=== PATIENT | male | born 1985 | race Caucasian/White ===

== ENCOUNTER 2017-07-11 15:22 | Emergency (ER) | payer MEDICAID, SELFPAY ==
[2017-07-11 15:23] VITALS: BP 144/82; PULSE 101; RESP 18; TEMP 37.3; O2SAT 97; BMI 27.6
[2017-07-11] MEDS: Ketorolac 60 MG/2 ML Vial IM (15:44)
--- NOTE | 2017-07-11 15:47 | RAD_ITS ---
STUDY: X-RAY - UNILATERAL RIBS ( LEFT ) WITH CHEST REASON FOR EXAM: Male, 32 years old. Pain following lifting one day ago TECHNIQUE - RIBS: 4 view(s) of the ribs. TECHNIQUE - CHEST: Single PA view of the chest. COMPARISON: Previous rib study of 02/07/2013. Previous chest study of 04/22/2017. FINDINGS - RIBS: Normal visualized ribs without a demonstrated fracture. FINDINGS - CHEST: There is a nipple shadow of the left lung base. There is a small calcified granuloma also of the left lung base. There is no demonstrated pleural abnormality. Normal size heart. Normal mediastinum and dana. Normal visualized pulmonary arteries. Normal visualized aortic arch and descending thoracic aorta. Normal visualized thoracic spine. Normal visualized ribs, clavicles, and shoulders. There is no demonstrated abnormality of the visualized soft tissue structures of the upper abdomen. RAD/Ribs Uni Min 3V w/PA Chest IMPRESSION: RIBS: Normal x-ray examination of the ribs. CHEST: Nipple shadow overlying the left lung base. Small calcified granuloma of the left lower lobe. No acute cardiopulmonary disease process is seen. Electronically Signed: Tom Causey MD at 16:22 EDT , Service support ,
--- NOTE | 2017-07-11 15:58 | ED.DCSUM_ITS ---
- ER Visit Summary Date of Service: 07/11/17 Chief Complaint: Left chest wall pain History of Present Illness: The patient is a 32 M presenting with left chest wall pain. Patient states that he was helping his sister move a freezer last night. After lifting, he felt a pain in his left lower chest wall. He tried ibuprofen at home. He denies shortness of breath. Pain is worse with movement. Denies other complaints. Physical Examination: Vitals are stable. Patient is afebrile. Alert no acute distress. HEENT exam is unremarkable. Neck is supple. Lungs are clear and equal bilaterally. Left lateral chest wall tenderness with no crepitus Heart is regular rate and rhythm. Abdomen is soft nontender nondistended. No rebound or guarding Extremities are unremarkable. Skin is warm and dry. Remainder of exam is unremarkable. Emergency Department Course and Treatment: Patient is given Toradol IM. Left rib series shows no acute process. Patient is advised to continue ibuprofen at home. Advised to follow-up with Dr. Bruce vice president for instruction for no doc. Advised to return to ED for worsening complaints. Disposition: Discharge home Impression: Left chest wall strain This note was generated with [employer] dictation software. It may contain incorrect words, spelling, and punctuation that were not noted in review of the chart prior to signing ED Disposition - Plan for ED Patient: Chief Complaint: Chest Other Referrals: Care Physician,No Primary [Primary Care Provider] -
--- NOTE | 2017-07-11 16:30 | ED.DEP ---
ED Disposition - Plan for ED Patient: Chief Complaint: Chest Other Instructions: ED Strain Chest Wall Referrals: Care Physician,No Primary [Primary Care Provider] - Sulma Bruce MD [STAFF PHYSICIAN] -
== END 2017-07-11 16:41 | disposition home or self-care (01) ==
LOC: ED 16:27
PROVIDERS: Emergency Provider Emergency Medicine
DX: S29.011A Strain of muscle and tendon of front wall of thorax, initial encounter (principal); X50.0XXA Overexertion from strenuous movement or load, initial encounter; Y93.E6 Activity, residential relocation; Y92.9 Unspecified place or not applicable; Y99.9 Unspecified external cause status; Z72.0 Tobacco use
CPT/HCPCS: 71101; 99282

== ENCOUNTER 2017-07-25 14:43 | Inpatient (IN) | payer MEDICAID, SELFPAY ==
[2017-07-25] VITALS (10 sets, daily range): BP systolic 105–126; BP diastolic 59–73; PULSE 87–103; RESP 18–24; TEMP 36.6–39.4; O2SAT 96–100; BMI 25.0; BMI 27.3
--- NOTE | 2017-07-25 14:48 | EKG12_ITS ---
Test Reason : CP Blood Pressure : / mmHG Vent. Rate : 092 BPM Atrial Rate : 092 BPM P-R Int : 156 ms QRS Dur : 084 ms QT Int : 362 ms P-R-T Axes : 047 030 026 degrees QTc Int : 447 ms Normal sinus rhythm Normal ECG Confirmed by LUCRECIA JJ MD ([id number]), design editor CABRERA CRAVEN ([id number] on 07/27/2017 1:28:40 PM Referred By: CARIDAD Confirmed By:LUCRECIA JJ MD
--- NOTE | 2017-07-25 14:48 | RAD_ITS ---
STUDY: X-RAY CHEST REASON FOR EXAM: Male, 32 years old. Sudden onset of acute pain today. TECHNIQUE: AP upright portable view. COMPARISON: 07/11/2017. FINDINGS: Mild pulmonary hypoinflation. The lungs are clear. There is no demonstrated pleural abnormality. Normal size heart. Normal mediastinum and dana. Normal visualized pulmonary arteries. Normal visualized aortic arch and descending thoracic aorta. Normal visualized thoracic spine. Normal visualized ribs, clavicles, and shoulders. Increased gastric gaseous dilatation. RAD/Chest 1 View (Portable) IMPRESSION: 1. Normal x-ray examination of the chest. 2. Limited inspiratory effort and increased gastric gaseous dilatation are the changes when compared to 07/11/2017. Electronically Signed: Dixon Abdalla MD at 15:23 EDT , Service support ,
--- NOTE | 2017-07-25 14:49 | CT_ITS ---
STUDY: CT ABDOMEN AND PELVIS WITH CONTRAST REASON FOR EXAM: Male, 32 years old. Chest pain. Abdominal pain and shortness of breath RADIATION DOSAGE (If Supplied By Facility): CTDIvol = ( ) mGy, DLP = ( ) mGycm TECHNIQUE: Transaxial images were obtained from the dome of the diaphragm to the symphysis pubis without oral contrast. 100ML ml of Isovue 300 contrast was administered. Sagittal and coronal images were reconstructed. Individualized dose optimization techniques were used for this CT. COMPARISON: None. FINDINGS: Unremarkable liver, spleen, pancreas, gallbladder and adrenal glands. Normal left kidney. Right kidney demonstrates a simple-appearing nonenhancing cyst however, with a thin peripheral calcification. This cyst measures 6.6 x 4.8 cm. Otherwise, normal right kidney. Normal visualized stomach. Normal small intestine. Moderate fecal retention throughout the colon. The appendix is visualized and appears normal. Normal abdominal aorta. Normal inferior vena cava. Normal retroperitoneum. Normal urinary bladder. Normal visualized prostate gland. Normal abdominal wall. Normal osseous structures. CT/Abdomen/Pelvis W IV Cont ONLY IMPRESSION: No acute findings. Predominantly simple-appearing right renal cyst with a thin peripheral calcification. Nonemergent renal ultrasound is recommended to further evaluate. Electronically Signed: Caleb Orta DO at 16:11 EDT Tel , Service support ,
--- NOTE | 2017-07-25 14:49 | CT_ITS ---
STUDY: CTA CHEST REASON FOR EXAM: Male, 32 years old. Shortness of breath and chest pain RADIATION DOSAGE (If Supplied By Facility): CTDIvol = ( 17.80 ) mGy, DLP = ( 1387.07 ) mGycm TECHNIQUE: The examination was performed with the intravenous administration of 100ML ml of Isovue 370 contrast material. Post-processing of the angiographic images was performed, with multiplanar reformation and 3D reconstruction. Individualized dose optimization techniques were used for this CT. COMPARISON: None. FINDINGS: Normal enhancement of the main pulmonary artery and right and left pulmonary arteries. Normal enhancement of the bilateral peripheral pulmonary arteries. There is no demonstrated pulmonary embolism. Normal thoracic aorta and visualized great vessels. There is no demonstrated aortic dissection. Normal heart and pericardium. Multiple small mediastinal and subcarinal lymph nodes. Possibly reactive in nature. Normal hilar regions. Normal visualized trachea and bronchi. Lungs are adequately inflated however, there is left lower lobe airspace disease and effusion. Masslike consolidation as well. Small area of airspace disease in the anterior right middle lobe. Remainder of the lungs are clear. Normal chest wall structures. Normal osseous structures. Normal visualized upper abdomen. CT/CTA Chest W/WO Contrast IMPRESSION: 1. Negative for pulmonary embolism or thoracic aortic dissection 2. Left lower lobe consolidation, infiltrate and effusion with masslike appearance. There is also a small area of airspace disease in the anterior right middle lobe. Findings are concerning for multifocal pneumonia. Recommend repeat chest CT in 3-6 months following treatment to evaluate for resolution of left lower lobe symptoms 3. Mild mediastinal and subcarinal lymph nodes. Likely reactive in nature. Again, follow-up can be performed in 3-6 months Electronically Signed: Caleb Orta DO at 16:15 EDT Tel , Service support ,
[2017-07-25] MEDS: Ondansetron 4 MG/2 ML Vial IV (14:59)
[2017-07-25] MEDS: Aspirin 81 MG TAB.CHEW 324 MG PO (14:59)
[2017-07-25] MEDS: Morphine 4 MG/ML Syringe IV (14:59)
[2017-07-25 15:12] LABS: Absolute Lymphocyte Count 1.19 X10^3/ul (0.83-4.51); Absolute Neutrophil Count 7.8 X10^3/uL (2.0-7.7); Basophil# 0.02 X10^3/uL; Basophil% 0.2 % (0-1); Eosinophil# 0.26 X10^3/uL; Eosinophils% 2.6 % (0-5); Hematocrit 44.6 % (40-54); Hemoglobin 14.5 g/dl (13.0-16.5); Lymphocyte # 1.19 X10^3/ul (4.0); Lymphocyte % 12.1 % (19-41); Mean Corp Hgb Conc 32.5 g/gl (32-36); Mean Corpuscular Hgb 29.4 pg (27.0-32.0); Mean Corpuscular Volume 90.3 fL (80-94); Mean Platelet Vol. 10.3 fl (6.2-12.0); Monocyte# 0.53 X10^3/uL; Monocyte% 5.4 % (0-10); Neutrophil % 79.5 % (47-70); POSITIVE COUNT NO; POSITIVE DIFFERENTIAL NO; POSITIVE MORPHOLOGY NO; Platelet Count 444 K/mm3 (150-450); RBC Distribution Width CV 14.5 % (11.6-14.6); RBC Distribution Width SD 47.8 fl (35.1-43.9); Red Blood Count 4.94 M/mm3 (4.6-6.2); White Blood Count 9.8 K/mm3 (4.4-11.0)
[2017-07-25 15:20] LABS: Anion Gap 6 (5-15); BUN 13 mg/dL (7-18); BUN/Creat Ratio 14.2 RATIO (10-20); Calcium,Total 8.6 mg/dL (8.5-10.1); Chloride 105 mmol/L (98-107); Creatinine, Serum 0.92 mg/dL (0.70-1.30); EST Glomerular Filtration Rate 101 mL/min (>60); Est Glom Filt Rate - Afr Amer 122 mL/min (>60); Estimated Creatinine Clearance 125.35 ml/min; Glucose 175 mg/dL (74-106); Potassium 4.5 mmol/L (3.5-5.1); Sodium Level 140 mmol/L (136-145)
--- NOTE | 2017-07-25 15:48 | ED.VISSUMM ---
- ER Visit Summary Date of Service: 07/25/17 Chief Complaint: Chest wall pain History of Present Illness: The patient is a 32 M presenting with chest wall pain. Patient states he was seen in the ED 1.5 weeks ago for similar complaints. He had been moving a freezer and had pain in his left side of his chest. He had rib x-rays which were unremarkable. He was advised to take ibuprofen. He states the pain has been persistent. He states today he developed severe pain in the same area. No new injury. Complains of shortness of breath. No other complaints. Physical Examination: Vitals are stable. Patient is afebrile. Alert no acute distress. HEENT exam is unremarkable. Neck is supple. Lungs are diminished bilaterally. Heart is regular rate and rhythm. Left chest wall tenderness with no crepitus Abdomen is soft mild left upper quadrant tenderness with no rebound or guarding Extremities are unremarkable. Skin is warm and dry. No focal neurologic deficit. Remainder of exam is unremarkable. Emergency Department Course and Treatment: Patient given morphine, Zofran. EKG is sinus rate of 92. Chest xray shows poor inspiration. CBC normal. Chemistries normal except for glucose 175. Troponin is negative. CTA chest negative for pulmonary embolism or thoracic aortic dissection Left lower lobe consolidation, infiltrate and effusion with masslike appearance. There is also a small area of airspace disease in the anterior right middle lobe. Findings are concerning for multifocal pneumonia. Recommend repeat chest CT in 3-6 months following treatment to evaluate for resolution of left lower lobe symptoms. Mild mediastinal and subcarinal lymph nodes. Likely reactive in nature. CT abdomen/pelvis shows no acute findings. Predominantly simple-appearing right renal cyst with a thin peripheral calcification. Nonemergent renal ultrasound is recommended. Blood cultures were sent. He was given Rocephin and Zithromax IV. Will discuss with the hospitalist for admission. Disposition: Admission Impression: Multifocal pneumonia, chest wall pain This note was generated with [employer] dictation software. It may contain incorrect words, spelling, and punctuation that were not noted in review of the chart prior to signing ED Disposition - Plan for ED Patient: Chief Complaint: Chest Other Referrals: Care Physician,No Primary [Primary Care Provider] -
--- NOTE | 2017-07-25 16:55 | HP.PCM_ITS ---
Problem List (1) LLL CAP, multifoal Status: Acute (2) Nicotine dependence Status: Chronic (3) Rib contusion Status: Chronic History of Present Illness Date of Admission: 07/25/17 Chief Complaint: Shortness of breath and left-sided lower chest pain The patient is a 32 year old M with no significant past medical history except multiple left lower rib fractures in the past when he fell down came to ER for left-sided lower chest pain along with shortness of breath and tachypnea, gradually worsening for about 1 week. Prior to that, he came to the ER on 318 after he had left lower rib/musculoskeletal pain secondary to moving heavy stuff. I think he had atelectasis of left lower chest due to pain and later on developed pneumonia as he was also in close contact of young sick kids. He denies fever, chills, nausea or vomiting. In the ED, respiratory rate 20-21/min, no tachycardia, no hypoxia. In ED, CT chest was done which was negative for PE but shows left lower lobe multifocal consolidation with effusion and masslike appearance along with infiltrate in the right middle lobe; suggestive of multifocal pneumonia. Abdomen and pelvis CT was also done which showed no acute findings. Past Medical History Past Medical History (Chronic Problems): Chronic Problems Nicotine dependence (Chronic) Rib contusion (Chronic) Allergies Fish Containing Products Allergy (Verified 07/25/17 14:44) Hives tomato [Tomato] Allergy (Verified 07/25/17 14:44) Hives naproxen Adverse Reaction (Verified 07/25/17 14:44) Nausea/Vom/Diarrhea Home Medications: Ambulatory Orders Medication Instructions Recorded NK [NK] 07/11/17 Smoking Status: Current every day smoker - Claims half pack per day used to smoke about 1 pack per day in teenage - *Family History Paternal History Items: No pertinent history Review of Systems Constitutional: Reports: Malaise, Weakness. Denies: Chills, Fever, Weight Change HEENT: Denies: Head Aches, Sinus Congestion, Sinus Drainage Cardiovascular: Reports: Chest Pain. Denies: Palpitations Respiratory: Reports: Cough, Shortness of breath at rest. Denies: Sputum production Gastrointestinal: Denies: Abdominal Pain, Nausea, Vomiting Genitourinary: Denies: Dysuria Musculoskeletal: Denies: Joint Pain, Joint Tenderness Skin: Denies: Rash, Wounds Neurological: Denies: Numbness, Tingling, Focal weakness Psychiatric: Denies: Anxiety, Depression, Homicidal Ideations, Suicidal Ideations Hematologic/ Lymphatic: Denies: Easy Bruising, Easy Bleeding VTE Information - Inpt Only VTE Present on Admission: No VTE Mechan Device Prophylaxis: None Reason prophylaxis not ordered:: Procedure Not Indicated - Low risk Patient Problems: Active and Suspected Problems LLL CAP, multifoal (Acute) - Physical Exam General: Alert, Oriented x3, Cooperative HEENT: Atraumatic, PERRLA, EOMI, Normocephalic Oral: Dry Mucosa Neck: Supple, No JVD, Negative Carotid Bruits Lungs: Diminished - Air entry diminished in the left lower lung anteriorly and posteriorly, Short of Breath, Tachypneic Cardiovascular: Regular rate, Regular Rhythm, Normal S1, Normal S2, No murmurs Abdomen: Bowel Sounds Present, Soft, Non Tender, Non-Distended Extremities: No edema, Capillary Refill Less than 3 Seconds Skin: No rashes, No breakdown Musculoskeletal: No Tenderness to Palpation of Joints or Extremities Neurological: Cranial nerves II-XII grossly intact Psych/Mental Status: Normal Affect, Appropriate Vital Signs Temp Pulse Resp BP Pulse Ox 97.8 F 91 21 H 126/73 H 97 07/25/17 14:45 07/25/17 14:45 07/25/17 14:45 07/25/17 14:45 07/25/17 14:45 Oxygen Flow Rate (L/min) 2 Oxygen Delivery Method Nasal Cannula Weight: 185 lb Body Mass Index (BMI) 25.0 Laboratory Tests Past 24 Hrs 07/25/17 07/25/17 14:49 14:49 WBC 9.8 RBC 4.94 Hgb 14.5 Hct 44.6 MCV 90.3 MCH 29.4 MCHC 32.5 RDW 14.5 RDW Differential 47.8 H Plt Count 444 MPV 10.3 Immature Gran % (Auto) 0.200 Neut % (Auto) 79.5 H Lymph % (Auto) 12.1 L [place] % (Auto) 5.4 Eos % (Auto) 2.6 Baso % (Auto) 0.2 Absolute Neuts (auto) 7.8 H Absolute Lymphs (auto) 1.19 Total Counted Not Reportable Sodium 140 Potassium 4.5 Chloride 105 Carbon Dioxide 29.0 Anion Gap 6 BUN 13 Creatinine 0.92 Estim Creat Clear Calc 125.35 Est GFR (MDRD) Af Amer 122 Est GFR (MDRD) Non-Af 101 BUN/Creatinine Ratio 14.2 Glucose 175 H Calcium 8.6 Troponin I < 0.02 Assessment/Plan Active and Suspected Problems LLL CAP, multifoal (Acute) The patient is a 32 year old M with no significant past medical history except multiple left lower rib fractures in the past when he fell down came to ER for left-sided lower chest pain along with shortness of breath and tachypnea, gradually worsening for about 1 week. Prior to that, he came to the ER on 318 after he had left lower rib/musculoskeletal pain secondary to moving heavy stuff. I think he had atelectasis of left lower chest due to pain and later on developed pneumonia as he was also in close contact of young sick kids. He denies fever, chills, nausea or vomiting. In the ED, respiratory rate 20-21/min, no tachycardia, no hypoxia. In ED, CT chest was done which was negative for PE but shows left lower lobe multifocal consolidation with effusion and masslike appearance along with infiltrate in the right middle lobe; Suggestive of multifocal pneumonia. Abdomen and pelvis CT was also done which showed no acute findings. 1. Left lower lobe, right middle lobe multifocal/multilobar community-acquired pneumonia complicated with left lower pleural effusion; possible parapneumonic effusion and atelectasis: The patient is being admitted On the regular [facility] floor. Started on IV antibiotic, Rocephin and Zithromax in the ER and will continue it. Pneumonia workup with urinary antigens, sputum culture, incentive spirometry, chest physiotherapy and bronchodilator as needed for shortness of breath. Repeat chest x-ray after 2 days to see the change. 2. Chronic nicotine dependence with active smoking: Patient denies any chronic lung disease except smoking. On nicotine patch. 3. Hyperglycemia: No history of diabetes mellitus. A1c ordered for tomorrow a.m. 3. Old history of left lower rib fracture with recent rib/musculoskeletal pain : Pain control. Incentive spirometry. DVT prophylaxis: Low risk ; No prophylaxis indicated. Laboratory Results 07/25/17 14:49: WBC 9.8, RBC 4.94, Hgb 14.5, Hct 44.6, MCV 90.3, MCH 29.4, MCHC 32.5, RDW 14.5, RDW Differential 47.8 H, Plt Count 444, MPV 10.3, Immature Gran % (Auto) 0.200, Neut % (Auto) 79.5 H, Lymph % (Auto) 12.1 L, [place] % (Auto) 5.4, Eos % (Auto) 2.6, Baso % (Auto) 0.2, Absolute Neuts (auto) 7.8 H, Absolute Lymphs (auto) 1.19, Total Counted Not Reportable 07/25/17 14:49: Sodium 140, Potassium 4.5, Chloride 105, Carbon Dioxide 29.0, Anion Gap 6, BUN 13, Creatinine 0.92, Estim Creat Clear Calc 125.35, Est GFR ( MDRD) Af Amer 122, Est GFR (MDRD) Non-Af 101, BUN/Creatinine Ratio 14.2, Glucose 175 H, Calcium 8.6, Troponin I < 0.02 Clinical Impression(s) from Imaging Studies Abdomen/Pelvis CT 07/25/17 14:49 IMPRESSION: No acute findings. Predominantly simple-appearing right renal cyst with a thin peripheral calcification. Nonemergent renal ultrasound is recommended to further evaluate. Chest CTA 07/25/17 14:49 IMPRESSION: 1. Negative for pulmonary embolism or thoracic aortic dissection 2. Left lower lobe consolidation, infiltrate and effusion with masslike appearance. There is also a small area of airspace disease in the anterior right middle lobe. Findings are concerning for multifocal pneumonia. Recommend repeat chest CT in 3-6 months following treatment to evaluate for resolution of left lower lobe symptoms 3. Mild mediastinal and subcarinal lymph nodes. Likely reactive in nature. Again, follow-up can be performed in 3-6 months This note was generated with [employer] dictation software. Every effort was made to ensure accuracy, however computerized chief airline radio operator mistakes may persist.
[2017-07-25] MEDS: Ceftriaxone 1 GM/50 ML BAG IV (17:14)
[2017-07-25] MEDS: Morphine 2 MG/ML Syringe IV (18:18)
--- NOTE | 2017-07-25 18:40 | NURSING ---
NO HOME MEDS
[2017-07-25] MEDS: guaiFENesin 1,200 MG Tablet 1200 MG PO (21:08)
[2017-07-25] MEDS: Acetaminophen 325 MG Tablet 650 MG PO (21:08)
[2017-07-25 21:45] LABS: Color, Urine Yellow (Yellow); Glucose, Dipstick Normal (Normal); Ketone-Dipstick Negative (Negative); Leukocyte Esterase-Dipstick Negative /ul (Negative); Nitrite-Dipstick Negative (Negative); Occult Blood-Urine Negative /ul (Negative); Protein-Dipstick 15 mg/dl (Negative); Specific Gravity, Urine 1.015 (1.002-1.030); Urine Bilirubin Dipstick Negative (Negative); Urine Clarity Sl. Cloudy (Clear); Urine Urobilinogen Normal (Normal)
[2017-07-25 22:32] LABS: Lactic Acid 0.8 mmol/L (0.4-2.0)
[2017-07-25] MEDS: oxyCODONE 5 MG Tablet PO (22:58)
[2017-07-25] MEDS: Ipratropium/Albuterol Sulfate 3 ML AMPUL.NEB INHALATION (23:05)
[2017-07-26] VITALS (12 sets, daily range): BP systolic 105–123; BP diastolic 53–68; PULSE 90–117; RESP 16–28; TEMP 37.1–38.1; O2SAT 92–95
[2017-07-26] MEDS: Morphine 2 MG/ML Syringe IV ×2 (00:45→05:27)
[2017-07-26] MEDS: 0.9% NaCl Peripheral Flush Adult/Peds IV ×2 (00:46→05:27)
--- NOTE | 2017-07-26 03:06 | NURSING ---
Girlfriend has been on and off of floor throughout the night, staying with patient in room. Leaves to go outside every 1-2hours.
[2017-07-26] MEDS: 0.9% Normal Saline 1,000 ML 100 ML IV ×2 (04:08→18:24)
[2017-07-26] MEDS: oxyCODONE 5 MG Tablet PO (04:08)
[2017-07-26] MEDS: Ipratropium/Albuterol Sulfate 3 ML AMPUL.NEB INHALATION ×4 (05:40→23:00)
[2017-07-26 06:10] LABS: Absolute Lymphocyte Count 1.89 X10^3/ul (0.83-4.51); Absolute Neutrophil Count 10.5 X10^3/uL (2.0-7.7); Basophil# 0.02 X10^3/uL; Basophil% 0.1 % (0-1); Eosinophil# 0.18 X10^3/uL; Eosinophils% 1.3 % (0-5); Hematocrit 43.3 % (40-54); Hemoglobin 13.9 g/dl (13.0-16.5); Lymphocyte # 1.89 X10^3/ul (4.0); Lymphocyte % 13.4 % (19-41); Mean Corp Hgb Conc 32.1 g/gl (32-36); Mean Corpuscular Hgb 29.4 pg (27.0-32.0); Mean Corpuscular Volume 91.5 fL (80-94); Mean Platelet Vol. 10.5 fl (6.2-12.0); Monocyte% 10.6 % (0-10); Neutrophil # 10.51 X10^3/uL (2.7-7.7); Neutrophil % 74.4 % (47-70); Platelet Count 416 K/mm3 (150-450); RBC Distribution Width CV 14.8 % (11.6-14.6); RBC Distribution Width SD 48.8 fl (35.1-43.9); Red Blood Count 4.73 M/mm3 (4.6-6.2); White Blood Count 14.1 K/mm3 (4.4-11.0)
[2017-07-26 06:22] LABS: POSITIVE COUNT NO; POSITIVE DIFFERENTIAL NO; POSITIVE MORPHOLOGY NO
[2017-07-26 10:03] LABS: Hemoglobin A1c 5.9 % (4.2-6.3)
[2017-07-26] MEDS: Ceftriaxone 1 GM/50 ML BAG IV (10:51)
--- NOTE | 2017-07-26 10:57 | PCM.PN.HOSP ---
Patient Problems: Active and Suspected Problems LLL CAP, multifoal (Acute) Subjective: CC: shortness of breath and left-sided chest wall pain. Objective: Patient complains of shortness of breath and cough he also complains of left-sided chest wall pain. CT angiogram done at the time of admission showed left lobe pneumonia. Echocardiogram does not show any evidence of pericarditis. Vitals/I&O's: Vital Signs Temp Pulse Resp BP Pulse Ox 100.0 F H 110 H 20 H 123/67 H 93 07/26/17 10:56 07/26/17 10:56 07/26/17 10:56 07/26/17 10:56 07/26/17 10:56 Oxygen Flow Rate (L/min) 2 Oxygen Delivery Method Room Air Weight: 91.399 kg Body Mass Index (BMI) 27.3 Intake and Output for Last 24 Hours 07/24/17 07/25/17 07/26/17 23:59 23:59 23:59 Intake Total 998 / 998 981 / 981 Output Total 350 / 350 Balance 648 / 648 981 / 981 General: Alert, Oriented x3 Oral: Moist Mucosa Neck: Supple, No JVD Lungs: Clear to auscultation Cardiovascular: Regular rate, Normal S1, Normal S2 Microbiology Past 72 Hours 07/25/17 21:15 Urine, Clean Catch Streptococcus pneumoniae Antigen (M - Final 07/25/17 21:15 Urine, Clean Catch Legionella Antigen - Final 07/25/17 19:35 Mucosa - Nasopharyngeal Influenza Types A,B Direct FA (MARIANNE) - Final Laboratory Results 07/25/17 21:15: Urine Color Yellow, Urine Clarity Sl. Cloudy, Urine pH 5.0, Ur Specific [place] 1.015, Urine Protein 15 H, Urine Glucose (UA) Normal, Urine Ketones Negative, Urine Occult Blood Negative, Urine Nitrite Negative, Urine Bilirubin Negative, Urine Urobilinogen Normal, Ur Leukocyte Esterase Negative 07/25/17 21:49: Lactic Acid 0.8 07/26/17 05:30: WBC 14.1 H, RBC 4.73, Hgb 13.9, Hct 43.3, MCV 91.5, MCH 29.4, MCHC 32.1, RDW 14.8 H, RDW Differential 48.8 H, Plt Count 416, MPV 10.5, Immature Gran % (Auto) 0.200, Neut % (Auto) 74.4 H, Lymph % (Auto) 13.4 L, [place] % (Auto) 10.6 H, Eos % (Auto) 1.3, Baso % (Auto) 0.1, Absolute Neuts (auto) 10.5 H, Absolute Lymphs (auto) 1.89, Total Counted Not Reportable 07/26/17 05:30: Hemoglobin A1c 5.9 Current Medications Acetaminophen (Tylenol) 650 mg PO Q4H PRN PRN PRN Reason: FEVER Last Admin: 07/25/17 21:08 Dose: 650 mg Al Hydroxide/Mg Hydroxide (Mylanta Ii) 30 ml PO Q6H PRN PRN PRN Reason: Gastric Burning Albuterol/Ipratropium (Duoneb) 3 ml INHALATION Q4H PRN PRN Reason: SHORTNESS OF BREATH Last Admin: 07/26/17 05:40 Dose: 3 ml Docusate Sodium (Colace) 200 mg PO BID PRN PRN PRN Reason: Constipation Guaifenesin (Mucinex) 1,200 mg PO BID [facility] Last Admin: 07/25/17 21:08 Dose: 1,200 mg Sodium Chloride () 1,000 mls @ 100 mls/hr IV .Q10H [facility] Last Admin: 07/26/17 04:08 Dose: 100 mls/hr Azithromycin 500 mg/ Dextrose 255 mls @ 250 mls/hr IV Q24 [facility] Stop: 07/27/17 11:02 Ceftriaxone Sodium (Rocephin) 1 gm in 50 mls @ 100 mls/hr IV Q24H [facility] Last Admin: 07/26/17 10:51 Dose: 100 mls/hr Nicotine (Nicoderm Cq (Pbkc)) 21 mg TRANSDERM. DAILY [facility] Last Admin: 07/25/17 19:02 Dose: 21 mg Ondansetron HCl (Zofran) 4 mg IV Q4H PRN PRN PRN Reason: NAUSEA Oxycodone HCl (Oxyir) 5 mg PO Q4H PRN PRN PRN Reason: Moderate Pain (pain scale 4-5) Last Admin: 07/26/17 04:08 Dose: 5 mg Oxycodone HCl (Oxyir) 10 mg PO Q4H PRN PRN PRN Reason: SEVERE PAIN (6-10/10) Sodium Chloride () 5 - 30 ml IV UD PRN PRN Reason: SALINE FLUSH Last Admin: 07/26/17 05:27 Dose: 10 ml Medical Necessity - Tobacco Use Smoking Status: Current every day smoker Assessment/Plan Active and Suspected Problems LLL CAP, multifoal (Acute) 1. Left lower lobe; continue current antibiotics without change. 2. Left chest wall pain, the patient has history of rib fractures, IV Toradol for pain control. 2. Chronic nicotine dependence; recommended to quit smoking. 4. Hyperglycemia; A1c ordered. 5. early Ambulation for DVT prophylaxis. Code Visit Inpatient E&M: 81965 Subs Hosp L2
[2017-07-26] MEDS: Ketorolac 30 MG/ML Syringe 15 MG IV ×3 (11:52→23:17)
[2017-07-26] MEDS: guaiFENesin 1,200 MG Tablet 1200 MG PO ×2 (11:54→21:04)
[2017-07-26] MEDS: oxyCODONE 5 MG Tablet 10 MG PO ×2 (12:13→19:57)
--- NOTE | 2017-07-26 12:38 | CASEMGMT ---
CM Assessment: See Link DC Plan: Home Provided patient with list of PCPs that accept his insurance.
--- NOTE | 2017-07-26 12:47 | ECHOD_ITS ---
Reason For Study: Chest Pain Procedure This was a 2D Doppler, Color Flow transthoracic echocardiogram. Exam performed portable in patient room. Left Ventricle Normal LV size. Left ventricular systolic function is normal. The estimated ejection fraction is 60 %. Transmitral diastolic flow velocities suggest mild (stage 1) diastolic dysfunction (reversed pattern). No regional wall motion abnormalities noted. Right Ventricle Normal RV size. Normal systolic function. Atria Normal left atrium. Normal right atrium. Mitral Valve Normal mitral valve. Tricuspid Valve Normal tricuspid valve. Moderate (2+) tricuspid valve insufficiency. Pulmonary artery systolic pressure is 52 mmHg. Aortic Valve Normal aortic valve. Pulmonic Valve The pulmonic valve is not well visualized. Great Vessels Normal aortic root. The pulmonary artery is normal size. Normal inferior vena cava. Pericardium/Pleural No pericardial effusion. MMode/2D Measurements & Calculations LVIDd: 5.0 cm IVSd: 0.83 cm Ao root diam: 3.1 cm LVIDs: 3.8 cm LVPWd: 0.78 cm LA dimension: 4.2 cm RVDd: 5.3 cm FS: 25.3 % LAV(MOD-bp): 44.5 ml LA A4 area: 17.5 cm2 RA A4 area: 13.4 cm2 LAV(MOD-bp) Indexed: 21.6 ml/m2 LAV(MOD-sp2): 42.8 ml LAV(MOD-sp4): 40.2 ml Doppler Measurements & Calculations MV E max ok: 74.4 cm/sec Lat Peak E' Ok: 15.1 cm/sec Med Peak E' Ok: 9.0 cm/sec MV A max ok: 57.4 cm/sec E/E' lat: 4.9 E/E' med: 8.2 MV E/A: 1.3 Ao V2 max: 133.2 cm/sec LV V1 max: 111.7 cm/sec PA V2 max: 133.6 cm/sec Ao max P.1 mmHg LV V1 max P.0 mmHg Ao V2 mean: 105.1 cm/sec Ao mean P.7 mmHg Ao V2 VTI: 24.7 cm TR max ok: 345.7 cm/sec TR max P.8 mmHg Interpretation Summary Normal LV size. Left ventricular systolic function is normal. The estimated ejection fraction is 60 %. Transmitral diastolic flow velocities suggest mild (stage 1) diastolic dysfunction (reversed pattern). Ordering Physician: Luis Enrique Berumen Performed By: Camryn Dowling RDCS, RVT
--- NOTE | 2017-07-26 12:50 | EKG12_ITS ---
Test Reason : POSS ENDOCARDITIS Blood Pressure : / mmHG Vent. Rate : 086 BPM Atrial Rate : 086 BPM P-R Int : 142 ms QRS Dur : 086 ms QT Int : 358 ms P-R-T Axes : 032 045 034 degrees QTc Int : 428 ms Normal sinus rhythm Normal ECG When compared with ECG of 25-JUL-2017 14:45, MANUAL COMPARISON REQUIRED, DATA IS UNCONFIRMED Confirmed by АННА BAHENA, LUCRECIA ([id number]), visual effects editor CABRERA CRAVEN ([id number]) on 08/05/2017 2:24:18 PM Referred By: SEDRICK Confirmed By:LURCECIA JJ MD
[2017-07-27] VITALS (7 sets, daily range): BP systolic 120–127; BP diastolic 69–77; PULSE 94–117; RESP 16–22; TEMP 36.6–37.2; O2SAT 92–94
[2017-07-27] MEDS: oxyCODONE 5 MG Tablet 10 MG PO ×4 (00:01→17:23)
[2017-07-27] MEDS: 0.9% Normal Saline 1,000 ML 100 ML IV ×3 (00:02→22:25)
[2017-07-27] MEDS: Ketorolac 30 MG/ML Syringe 15 MG IV ×3 (05:55→17:22)
--- NOTE | 2017-07-27 05:55 | RAD_ITS ---
STUDY: X-RAY CHEST REASON FOR EXAM: Male, 32 years old. Cough. Shortness of breath. TECHNIQUE: Single AP portable view of the chest. COMPARISON: CTA chest and chest x-ray 07/25/2017. FINDINGS: There is complete opacification of the left lung field, which was not present on the recent previous exam. There is no significant leftward rightward shift of the trachea. Findings probably represent a combination of new, dense, pulmonary infiltration, large pleural effusion, and left lung atelectasis. There is blunting of the right posterior costophrenic angle, consistent with small right pleural effusion. There is mild interstitial prominence in the right lung field, without demonstrated focal right pulmonary infiltrate.. Normal size heart. Normal mediastinum and dana. Normal visualized pulmonary arteries. Normal visualized aortic arch and descending thoracic aorta. Normal visualized thoracic spine. Normal visualized ribs, clavicles, and shoulders. There is no demonstrated abnormality of the visualized soft tissue structures of the upper abdomen. RAD/Chest PA and Lateral IMPRESSION: New finding of complete left lung field opacification, probably representing a combination of pleural effusion, atelectasis, and dense infiltrate. Would consider repeat CT scan of the chest for further evaluation. Small right pleural effusion. Mildly increased interstitial prominence the right lung. Electronically Signed: Sudhir Martinez MD at 7:06 EDT , Service support ,
[2017-07-27] MEDS: Ipratropium/Albuterol Sulfate 3 ML AMPUL.NEB INHALATION ×2 (08:16→19:06)
[2017-07-27 09:18] LABS: Absolute Lymphocyte Count 1.79 X10^3/ul (0.83-4.51); Absolute Neutrophil Count 17.5 X10^3/uL (2.0-7.7); Basophil# 0.03 X10^3/uL; Basophil% 0.1 % (0-1); Eosinophils% 0.5 % (0-5); Hemoglobin 13.7 g/dl (13.0-16.5); Lymphocyte # 1.79 X10^3/ul (4.0); Lymphocyte % 8.5 % (19-41); Mean Corp Hgb Conc 32.6 g/gl (32-36); Mean Corpuscular Hgb 29.8 pg (27.0-32.0); Mean Corpuscular Volume 91.3 fL (80-94); Mean Platelet Vol. 10.4 fl (6.2-12.0); Monocyte# 1.47 X10^3/uL; Neutrophil # 17.52 X10^3/uL (2.7-7.7); Neutrophil % 83.6 % (47-70); POSITIVE COUNT NO; POSITIVE DIFFERENTIAL NO; POSITIVE MORPHOLOGY NO; Platelet Count 338 K/mm3 (150-450); RBC Distribution Width CV 14.7 % (11.6-14.6); RBC Distribution Width SD 49.5 fl (35.1-43.9)
[2017-07-27] MEDS: guaiFENesin 1,200 MG Tablet 1200 MG PO ×2 (10:08→21:00)
[2017-07-27] MEDS: Ceftriaxone 1 GM/50 ML BAG IV (10:09)
--- NOTE | 2017-07-27 15:30 | PCM.PN.HOSP ---
Patient Problems: Active and Suspected Problems LLL CAP, multifoal (Acute) Subjective: CC: Shortness of breath , left sided chest pain Objective: Feels much improved with less chest wall pain. No fever chills or hemoptysis. Vitals/I&O's: Vital Signs Temp Pulse Resp BP Pulse Ox 99 F 105 H 16 127/70 H 93 07/27/17 14:43 07/27/17 14:43 07/27/17 14:43 07/27/17 14:43 07/27/17 14:43 Oxygen Flow Rate (L/min) 2 Oxygen Delivery Method Room Air Weight: 91.399 kg Body Mass Index (BMI) 27.3 Intake and Output for Last 24 Hours 07/25/17 07/26/17 07/27/17 23:59 23:59 23:59 Intake Total 998 / 998 3201 / 3201 2723 / 2723 Output Total 350 / 350 250 / 250 Balance 648 / 648 2951 / 2951 2723 / 2723 General: Alert, Oriented x3 Oral: Moist Mucosa Neck: Supple, No JVD Lungs: Clear to auscultation Cardiovascular: Regular rate, Normal S1, Normal S2 Abdomen: Bowel Sounds Present, Soft, Non Tender, Non-Distended Microbiology Past 72 Hours 07/26/17 09:00 Sputum, Expectorated/Coughed Gram Stain - Final 07/26/17 09:00 Sputum, Expectorated/Coughed Respiratory Culture - Preliminary Appears to be normal respiratory tyler. Further studies to follow. 07/25/17 21:15 Urine, Clean Catch Streptococcus pneumoniae Antigen (M - Final 07/25/17 21:15 Urine, Clean Catch Legionella Antigen - Final 07/25/17 19:35 Mucosa - Nasopharyngeal Influenza Types A,B Direct FA (MARIANNE) - Final Laboratory Results 07/27/17 09:00: WBC 21.0 H, RBC 4.60, Hgb 13.7, Hct 42.0, MCV 91.3, MCH 29.8, MCHC 32.6, RDW 14.7 H, RDW Differential 49.5 H, Plt Count 338, MPV 10.4, Immature Gran % (Auto) 0.300, Neut % (Auto) 83.6 H, Lymph % (Auto) 8.5 L, [place] % (Auto) 7.0, Eos % (Auto) 0.5, Baso % (Auto) 0.1, Absolute Neuts (auto) 17.5 H, Absolute Lymphs (auto) 1.79, Total Counted Not Reportable Current Medications Acetaminophen (Tylenol) 650 mg PO Q4H PRN PRN PRN Reason: FEVER Last Admin: 07/25/17 21:08 Dose: 650 mg Al Hydroxide/Mg Hydroxide (Mylanta Ii) 30 ml PO Q6H PRN PRN PRN Reason: Gastric Burning Albuterol/Ipratropium (Duoneb) 3 ml INHALATION Q4H PRN PRN Reason: SHORTNESS OF BREATH Last Admin: 07/27/17 08:16 Dose: 3 ml Docusate Sodium (Colace) 200 mg PO BID PRN PRN PRN Reason: Constipation Guaifenesin (Mucinex) 1,200 mg PO BID [facility] Last Admin: 07/27/17 10:08 Dose: 1,200 mg Sodium Chloride () 1,000 mls @ 100 mls/hr IV .Q10H [facility] Last Admin: 07/27/17 10:09 Dose: 100 mls/hr Ceftriaxone Sodium (Rocephin) 1 gm in 50 mls @ 100 mls/hr IV Q24H [facility] Last Admin: 07/27/17 10:09 Dose: 100 mls/hr Ketorolac Tromethamine (Toradol) 15 mg IV Q6 [facility] Stop: 07/31/17 11:00 Last Admin: 07/27/17 11:16 Dose: 15 mg Nicotine (Nicoderm Cq (Pbkc)) 21 mg TRANSDERM. DAILY [facility] Last Admin: 07/27/17 10:08 Dose: 21 mg Ondansetron HCl (Zofran) 4 mg IV Q4H PRN PRN PRN Reason: NAUSEA Oxycodone HCl (Oxyir) 5 mg PO Q4H PRN PRN PRN Reason: Moderate Pain (pain scale 4-5) Last Admin: 07/26/17 04:08 Dose: 5 mg Oxycodone HCl (Oxyir) 10 mg PO Q4H PRN PRN PRN Reason: SEVERE PAIN (6-10/10) Last Admin: 07/27/17 10:08 Dose: 10 mg Sodium Chloride () 5 - 30 ml IV UD PRN PRN Reason: SALINE FLUSH Last Admin: 07/26/17 05:27 Dose: 10 ml Medical Necessity - Tobacco Use Smoking Status: Current every day smoker Assessment/Plan Active and Suspected Problems LLL CAP, multifoal (Acute) 1. Left lower lobe; continue on IV Rocephin and Zithromax as ordered. 2. Left chest wall pain, has improved. Echocardiogram did not reveal any evidence of pericarditis. . 2. Chronic nicotine dependence; recommended to quit smoking. 4. Hyperglycemia; A1c is 5.9 5. early Ambulation for DVT prophylaxis. Code Visit Inpatient E&M: 52059 Subs Hosp L2
--- NOTE | 2017-07-27 15:33 | PN_ITS ---
Patient Problems: Active and Suspected Problems LLL CAP, multifoal (Acute) Subjective: CC: Shortness of breath , left sided chest pain Objective: Feels much improved with less chest wall pain. No fever chills or hemoptysis. Vitals/I&O's: Vital Signs Temp Pulse Resp BP Pulse Ox 99 F 105 H 16 127/70 H 93 07/27/17 14:43 07/27/17 14:43 07/27/17 14:43 07/27/17 14:43 07/27/17 14:43 Oxygen Flow Rate (L/min) 2 Oxygen Delivery Method Room Air Weight: 91.399 kg Body Mass Index (BMI) 27.3 Intake and Output for Last 24 Hours 07/25/17 07/26/17 07/27/17 23:59 23:59 23:59 Intake Total 998 / 998 3201 / 3201 2723 / 2723 Output Total 350 / 350 250 / 250 Balance 648 / 648 2951 / 2951 2723 / 2723 General: Alert, Oriented x3 Oral: Moist Mucosa Neck: Supple, No JVD Lungs: Clear to auscultation Cardiovascular: Regular rate, Normal S1, Normal S2 Abdomen: Bowel Sounds Present, Soft, Non Tender, Non-Distended Microbiology Past 72 Hours 07/26/17 09:00 Sputum, Expectorated/Coughed Gram Stain - Final 07/26/17 09:00 Sputum, Expectorated/Coughed Respiratory Culture - Preliminary Appears to be normal respiratory tyler. Further studies to follow. 07/25/17 21:15 Urine, Clean Catch Streptococcus pneumoniae Antigen (M - Final 07/25/17 21:15 Urine, Clean Catch Legionella Antigen - Final 07/25/17 19:35 Mucosa - Nasopharyngeal Influenza Types A,B Direct FA (MARIANNE) - Final Laboratory Results 07/27/17 09:00: WBC 21.0 H, RBC 4.60, Hgb 13.7, Hct 42.0, MCV 91.3, MCH 29.8, MCHC 32.6, RDW 14.7 H, RDW Differential 49.5 H, Plt Count 338, MPV 10.4, Immature Gran % (Auto) 0.300, Neut % (Auto) 83.6 H, Lymph % (Auto) 8.5 L, [place] % (Auto) 7.0, Eos % (Auto) 0.5, Baso % (Auto) 0.1, Absolute Neuts (auto) 17.5 H , Absolute Lymphs (auto) 1.79, Total Counted Not Reportable Current Medications Acetaminophen (Tylenol) 650 mg PO Q4H PRN PRN PRN Reason: FEVER Last Admin: 07/25/17 21:08 Dose: 650 mg Al Hydroxide/Mg Hydroxide (Mylanta Ii) 30 ml PO Q6H PRN PRN PRN Reason: Gastric Burning Albuterol/Ipratropium (Duoneb) 3 ml INHALATION Q4H PRN PRN Reason: SHORTNESS OF BREATH Last Admin: 07/27/17 08:16 Dose: 3 ml Docusate Sodium (Colace) 200 mg PO BID PRN PRN PRN Reason: Constipation Guaifenesin (Mucinex) 1,200 mg PO BID [facility] Last Admin: 07/27/17 10:08 Dose: 1,200 mg Sodium Chloride () 1,000 mls @ 100 mls/hr IV .Q10H [facility] Last Admin: 07/27/17 10:09 Dose: 100 mls/hr Ceftriaxone Sodium (Rocephin) 1 gm in 50 mls @ 100 mls/hr IV Q24H [facility] Last Admin: 07/27/17 10:09 Dose: 100 mls/hr Ketorolac Tromethamine (Toradol) 15 mg IV Q6 [facility] Stop: 07/31/17 11:00 Last Admin: 07/27/17 11:16 Dose: 15 mg Nicotine (Nicoderm Cq (Pbkc)) 21 mg TRANSDERM. DAILY [facility] Last Admin: 07/27/17 10:08 Dose: 21 mg Ondansetron HCl (Zofran) 4 mg IV Q4H PRN PRN PRN Reason: NAUSEA Oxycodone HCl (Oxyir) 5 mg PO Q4H PRN PRN PRN Reason: Moderate Pain (pain scale 4-5) Last Admin: 07/26/17 04:08 Dose: 5 mg Oxycodone HCl (Oxyir) 10 mg PO Q4H PRN PRN PRN Reason: SEVERE PAIN (6-10/10) Last Admin: 07/27/17 10:08 Dose: 10 mg Sodium Chloride () 5 - 30 ml IV UD PRN PRN Reason: SALINE FLUSH Last Admin: 07/26/17 05:27 Dose: 10 ml Medical Necessity - Tobacco Use Smoking Status: Current every day smoker Assessment/Plan Active and Suspected Problems LLL CAP, multifoal (Acute) 1. Left lower lobe; continue on IV Rocephin and Zithromax as ordered. 2. Left chest wall pain, has improved. Echocardiogram did not reveal any evidence of pericarditis. . 2. Chronic nicotine dependence; recommended to quit smoking. 4. Hyperglycemia; A1c is 5.9 5. early Ambulation for DVT prophylaxis. Code Visit Inpatient E&M: 00822 Subs Hosp L2
[2017-07-27] MEDS: Acetaminophen 325 MG Tablet 650 MG PO (17:22)
[2017-07-28] VITALS (11 sets, daily range): BP systolic 112–130; BP diastolic 62–89; PULSE 105–131; RESP 18–28; TEMP 36.8–38.8; O2SAT 92–97
[2017-07-28] MEDS: Ketorolac 30 MG/ML Syringe 15 MG IV ×3 (00:02→11:39)
[2017-07-28] MEDS: oxyCODONE 5 MG Tablet 10 MG PO ×4 (00:03→16:29)
[2017-07-28 07:03] LABS: Absolute Lymphocyte Count 1.13 X10^3/ul (0.83-4.51); Absolute Neutrophil Count 15.5 X10^3/uL (2.0-7.7); Basophil# 0.02 X10^3/uL; Basophil% 0.1 % (0-1); Eosinophil# 0.21 X10^3/uL; Eosinophils% 1.1 % (0-5); Hemoglobin 12.3 g/dl (13.0-16.5); Lymphocyte # 1.13 X10^3/ul (4.0); Lymphocyte % 6.2 % (19-41); Mean Corp Hgb Conc 31.5 g/gl (32-36); Mean Corpuscular Hgb 28.7 pg (27.0-32.0); Mean Corpuscular Volume 91.1 fL (80-94); Mean Platelet Vol. 10.8 fl (6.2-12.0); Monocyte# 1.46 X10^3/uL; Neutrophil % 84.4 % (47-70); Platelet Count 326 K/mm3 (150-450); RBC Distribution Width SD 50.1 fl (35.1-43.9); Red Blood Count 4.28 M/mm3 (4.6-6.2); White Blood Count 18.4 K/mm3 (4.4-11.0)
[2017-07-28 07:04] LABS: POSITIVE COUNT NO; POSITIVE DIFFERENTIAL NO; POSITIVE MORPHOLOGY NO
[2017-07-28] MEDS: guaiFENesin 1,200 MG Tablet 1200 MG PO ×2 (08:49→21:29)
[2017-07-28] MEDS: 0.9% Normal Saline 1,000 ML 100 ML IV (08:49)
[2017-07-28] MEDS: Ceftriaxone 1 GM/50 ML BAG IV (08:49)
[2017-07-28] MEDS: oxyCODONE 5 MG Tablet PO (08:57)
--- NOTE | 2017-07-28 09:14 | RAD_ITS ---
STUDY: X-RAY CHEST REASON FOR EXAM: Male, 32 years old. Dyspnea and shortness of breath. TECHNIQUE: PA and lateral views of the chest. COMPARISON: Comparison is made with prior study dated July 27, 2017. FINDINGS: Persistent opacification of the left hemithorax although there has been mild improved aeration of the left lung. There is persistent blunting of the left costophrenic angle. A left hilar mass should be ruled out. Mild degree of increased markings at the right lung base although there has been improvement as compared to prior study. Normal size heart. Normal mediastinum and dana. Normal visualized pulmonary arteries. Normal visualized aortic arch and descending thoracic aorta. Normal visualized thoracic spine. Normal visualized ribs, clavicles, and shoulders. There is no demonstrated abnormality of the visualized soft tissue structures of the upper abdomen. RAD/Chest PA and Lateral IMPRESSION: Persistent opacification of the left hemithorax although there has been mild degree of improved aeration of the left lung. Mild persistent increased markings at the right lung base. Electronically Signed: Avni Contreras MD at 10:00 EDT Tel [phone], Service support ,
[2017-07-28] MEDS: Ipratropium/Albuterol Sulfate 3 ML AMPUL.NEB INHALATION ×4 (10:11→23:19)
[2017-07-28] MEDS: 0.9% NaCl Peripheral Flush Adult/Peds IV (11:39)
--- NOTE | 2017-07-28 12:47 | PCM.PN.HOSP ---
Patient Problems: Active and Suspected Problems LLL CAP, multifoal (Acute) Subjective: CC: shortness Breath and cough Objective: This is a 32-year-old male with history of nicotine dependency who presented to the emergency room with progressive shortness of breath and left-sided chest pain , his Chest CT scan revealed masslike opacity in the left lobe , he was was started on IV Rocephin and Zithromax for treatment of community-acquired pneumonia. Patient is not improving with antibiotic therapy , he has persistent leukocytosis and repeat chest x-ray this morning only shows mild improvement in aeration. He reports to me that he was diagnosed with influenza A in March but records showed his negative A/B were negative on 04/22/2017. He wants go home but he is clinically not ready for discharge, he is tachypneic and diaphoretic after walking from the BR to is bed. Vitals/I&O's: Vital Signs Temp Pulse Resp BP Pulse Ox 98.3 F 130 H 24 H 130/87 H 92 07/28/17 08:44 07/28/17 10:12 07/28/17 10:12 07/28/17 08:44 07/28/17 08:44 Oxygen Flow Rate (L/min) 2 Oxygen Delivery Method Nasal Cannula Weight: 91.399 kg Body Mass Index (BMI) 27.3 Intake and Output for Last 24 Hours 07/26/17 07/27/17 07/28/17 23:59 23:59 23:59 Intake Total 3201 / 3201 5103 / 5103 2573 / 2573 Output Total 250 / 250 Balance 2951 / 2951 5103 / 5103 2573 / 2573 General: Alert, Oriented x3, No apparent distress HEENT: Atraumatic, EOMI Oral: Moist Mucosa Neck: Supple, No JVD, Negative Carotid Bruits Abdomen: Bowel Sounds Present, Soft, Non Tender Extremities: No clubbing, No edema Neurological: Cranial nerves II-XII grossly intact, Motor Exam 5/5 strength throughout, Facial Droop, Slurred Speech Microbiology Past 72 Hours 07/26/17 09:00 Sputum, Expectorated/Coughed Gram Stain - Final 07/26/17 09:00 Sputum, Expectorated/Coughed Respiratory Culture - Final Presumptive C albicans 07/25/17 21:15 Urine, Clean Catch Streptococcus pneumoniae Antigen (M - Final 07/25/17 21:15 Urine, Clean Catch Legionella Antigen - Final 07/25/17 19:35 Mucosa - Nasopharyngeal Influenza Types A,B Direct FA (MARIANNE) - Final Laboratory Results 07/28/17 06:36: WBC 18.4 H, RBC 4.28 L, Hgb 12.3 L, Hct 39.0 L, MCV 91.1, MCH 28.7, MCHC 31.5 L, RDW 15.0 H, RDW Differential 50.1 H, Plt Count 326, MPV 10.8, Immature Gran % (Auto) 0.200, Neut % (Auto) 84.4 H, Lymph % (Auto) 6.2 L, [place] % (Auto) 8.0, Eos % (Auto) 1.1, Baso % (Auto) 0.1, Absolute Neuts (auto) 15.5 H, Absolute Lymphs (auto) 1.13, Total Counted Not Reportable Current Medications Acetaminophen (Tylenol) 650 mg PO Q4H PRN PRN PRN Reason: FEVER Last Admin: 07/27/17 17:22 Dose: 650 mg Al Hydroxide/Mg Hydroxide (Mylanta Ii) 30 ml PO Q6H PRN PRN PRN Reason: Gastric Burning Albuterol/Ipratropium (Duoneb) 3 ml INHALATION Q4H PRN PRN Reason: SHORTNESS OF BREATH Last Admin: 07/28/17 10:11 Dose: 3 ml Docusate Sodium (Colace) 200 mg PO BID PRN PRN PRN Reason: Constipation Fluconazole (Diflucan) 200 mg PO DAILY [facility] Guaifenesin (Mucinex) 1,200 mg PO BID [facility] Last Admin: 07/28/17 08:49 Dose: 1,200 mg Sodium Chloride () 1,000 mls @ 100 mls/hr IV .Q10H [facility] Last Admin: 07/28/17 08:49 Dose: 100 mls/hr Piperacillin Sod/Tazobactam Sod (Zosyn) 3.375 gm in 50 mls @ 12.5 mls/hr IV Q8 [facility] Vancomycin HCl (Vancomycin) 1,000 mg in 200 mls @ 200 mls/hr IV Q24H [facility] Ketorolac Tromethamine (Toradol) 15 mg IV Q6 [facility] Stop: 07/31/17 11:00 Last Admin: 07/28/17 11:39 Dose: 15 mg Nicotine (Nicoderm Cq (Pbkc)) 21 mg TRANSDERM. DAILY [facility] Last Admin: 07/28/17 08:49 Dose: 21 mg Oxycodone HCl (Oxyir) 5 mg PO Q4H PRN PRN PRN Reason: Moderate Pain (pain scale 4-5) Last Admin: 07/28/17 08:57 Dose: 5 mg Oxycodone HCl (Oxyir) 10 mg PO Q4H PRN PRN PRN Reason: SEVERE PAIN (6-10/10) Last Admin: 07/28/17 08:56 Dose: 10 mg Sodium Chloride () 5 - 30 ml IV UD PRN PRN Reason: SALINE FLUSH Last Admin: 07/28/17 11:39 Dose: 10 ml Medical Necessity - Tobacco Use Smoking Status: Current every day smoker Assessment/Plan Active and Suspected Problems LLL CAP, multifoal (Acute) 1. Left lower lobe; if he did in fact have influenza in March this will be considered post influenza pneumonia and will broaden antibiotics to cover MRSA. His sputum is growing Alyssa and will place him on Diflucan. I will consult pulmonary medicine to assist with his care. 2. Left chest pain, this has improved, likely from #1. Echocardiogram did not reveal any evidence of pericarditis. . 2. Chronic Nicotine dependence; recommended to quit smoking. 4. Hyperglycemia; A1c is 5.9 5. Leukocytosis; 2/2 #1. Code Visit Inpatient E&M: 80284 Subs Hosp L3
--- NOTE | 2017-07-28 12:57 | PN_ITS ---
Patient Problems: Active and Suspected Problems LLL CAP, multifoal (Acute) Subjective: CC: shortness Breath and cough Objective: This is a 32-year-old male with history of nicotine dependency who presented to the emergency room with progressive shortness of breath and left-sided chest pain , his Chest CT scan revealed masslike opacity in the left lobe , he was was started on IV Rocephin and Zithromax for treatment of community-acquired pneumonia. Patient is not improving with antibiotic therapy , he has persistent leukocytosis and repeat chest x-ray this morning only shows mild improvement in aeration. He reports to me that he was diagnosed with influenza A in March but records showed his negative A/B were negative on 04/22/2017. He wants go home but he is clinically not ready for discharge, he is tachypneic and diaphoretic after walking from the BR to is bed. Vitals/I&O's: Vital Signs Temp Pulse Resp BP Pulse Ox 98.3 F 130 H 24 H 130/87 H 92 07/28/17 08:44 07/28/17 10:12 07/28/17 10:12 07/28/17 08:44 07/28/17 08:44 Oxygen Flow Rate (L/min) 2 Oxygen Delivery Method Nasal Cannula Weight: 91.399 kg Body Mass Index (BMI) 27.3 Intake and Output for Last 24 Hours 07/26/17 07/27/17 07/28/17 23:59 23:59 23:59 Intake Total 3201 / 3201 5103 / 5103 2573 / 2573 Output Total 250 / 250 Balance 2951 / 2951 5103 / 5103 2573 / 2573 General: Alert, Oriented x3, No apparent distress HEENT: Atraumatic, EOMI Oral: Moist Mucosa Neck: Supple, No JVD, Negative Carotid Bruits Abdomen: Bowel Sounds Present, Soft, Non Tender Extremities: No clubbing, No edema Neurological: Cranial nerves II-XII grossly intact, Motor Exam 5/5 strength throughout, Facial Droop, Slurred Speech Microbiology Past 72 Hours 07/26/17 09:00 Sputum, Expectorated/Coughed Gram Stain - Final 07/26/17 09:00 Sputum, Expectorated/Coughed Respiratory Culture - Final Presumptive C albicans 07/25/17 21:15 Urine, Clean Catch Streptococcus pneumoniae Antigen (M - Final 07/25/17 21:15 Urine, Clean Catch Legionella Antigen - Final 07/25/17 19:35 Mucosa - Nasopharyngeal Influenza Types A,B Direct FA (MARIANNE) - Final Laboratory Results 07/28/17 06:36: WBC 18.4 H, RBC 4.28 L, Hgb 12.3 L, Hct 39.0 L, MCV 91.1, MCH 28.7, MCHC 31.5 L, RDW 15.0 H, RDW Differential 50.1 H, Plt Count 326, MPV 10.8 , Immature Gran % (Auto) 0.200, Neut % (Auto) 84.4 H, Lymph % (Auto) 6.2 L, [place] % (Auto) 8.0, Eos % (Auto) 1.1, Baso % (Auto) 0.1, Absolute Neuts (auto) 15.5 H, Absolute Lymphs (auto) 1.13, Total Counted Not Reportable Current Medications Acetaminophen (Tylenol) 650 mg PO Q4H PRN PRN PRN Reason: FEVER Last Admin: 07/27/17 17:22 Dose: 650 mg Al Hydroxide/Mg Hydroxide (Mylanta Ii) 30 ml PO Q6H PRN PRN PRN Reason: Gastric Burning Albuterol/Ipratropium (Duoneb) 3 ml INHALATION Q4H PRN PRN Reason: SHORTNESS OF BREATH Last Admin: 07/28/17 10:11 Dose: 3 ml Docusate Sodium (Colace) 200 mg PO BID PRN PRN PRN Reason: Constipation Fluconazole (Diflucan) 200 mg PO DAILY [facility] Guaifenesin (Mucinex) 1,200 mg PO BID [facility] Last Admin: 07/28/17 08:49 Dose: 1,200 mg Sodium Chloride () 1,000 mls @ 100 mls/hr IV .Q10H [facility] Last Admin: 07/28/17 08:49 Dose: 100 mls/hr Piperacillin Sod/Tazobactam Sod (Zosyn) 3.375 gm in 50 mls @ 12.5 mls/hr IV Q8 [facility] Vancomycin HCl (Vancomycin) 1,000 mg in 200 mls @ 200 mls/hr IV Q24H [facility] Ketorolac Tromethamine (Toradol) 15 mg IV Q6 [facility] Stop: 07/31/17 11:00 Last Admin: 07/28/17 11:39 Dose: 15 mg Nicotine (Nicoderm Cq (Pbkc)) 21 mg TRANSDERM. DAILY [facility] Last Admin: 07/28/17 08:49 Dose: 21 mg Oxycodone HCl (Oxyir) 5 mg PO Q4H PRN PRN PRN Reason: Moderate Pain (pain scale 4-5) Last Admin: 07/28/17 08:57 Dose: 5 mg Oxycodone HCl (Oxyir) 10 mg PO Q4H PRN PRN PRN Reason: SEVERE PAIN (6-10/10) Last Admin: 07/28/17 08:56 Dose: 10 mg Sodium Chloride () 5 - 30 ml IV UD PRN PRN Reason: SALINE FLUSH Last Admin: 07/28/17 11:39 Dose: 10 ml Medical Necessity - Tobacco Use Smoking Status: Current every day smoker Assessment/Plan Active and Suspected Problems LLL CAP, multifoal (Acute) 1. Left lower lobe; if he did in fact have influenza in March this will be considered post influenza pneumonia and will broaden antibiotics to cover MRSA. His sputum is growing Alyssa and will place him on Diflucan. I will consult pulmonary medicine to assist with his care. 2. Left chest pain, this has improved, likely from #1. Echocardiogram did not reveal any evidence of pericarditis. . 2. Chronic Nicotine dependence; recommended to quit smoking. 4. Hyperglycemia; A1c is 5.9 5. Leukocytosis; 2/2 #1. Code Visit Inpatient E&M: 77867 Subs Hosp L3
[2017-07-28] MEDS: Fluconazole 100 MG Tablet 200 MG PO (12:59)
--- NOTE | 2017-07-28 13:39 | PCM.RX.CS ---
Consult Pharmacy has been consulted to manage selected antiobiotic: Vancomycin Type of Consult: New start Suspected Infection: Pneumonia Labs: Sodium 140 mmol/L (136-145) 07/25/17 14:49 Potassium 4.5 mmol/L (3.5-5.1) 07/25/17 14:49 Chloride 105 mmol/L (98-107) 07/25/17 14:49 Carbon Dioxide 29.0 mmol/L (21.0-32.0) 07/25/17 14:49 Anion Gap 6 (5-15) 07/25/17 14:49 BUN 13 mg/dL (7-18) 07/25/17 14:49 Creatinine 0.92 mg/dL (0.70-1.30) 07/25/17 14:49 Est GFR (MDRD) Af Amer 122 mL/min (>60) 07/25/17 14:49 Est GFR (MDRD) Non-Af 101 mL/min (>60) 07/25/17 14:49 BUN/Creatinine Ratio 14.2 RATIO (10-20) 07/25/17 14:49 Glucose 175 mg/dL (74-106) H 07/25/17 14:49 Microbiology: Microbiology 07/26/17 09:00 Sputum, Expectorated/Coughed Gram Stain - Final 07/26/17 09:00 Sputum, Expectorated/Coughed Respiratory Culture - Final Presumptive C albicans 07/25/17 21:15 Urine, Clean Catch Streptococcus pneumoniae Antigen (M - Final 07/25/17 21:15 Urine, Clean Catch Legionella Antigen - Final 07/25/17 19:35 Mucosa - Nasopharyngeal Influenza Types A,B Direct FA (MARIANNE) - Final Weight used for dosin kg Estimated Creatinine Clearance: >100 mL/m Goal Trough: 15-20 mcg/mL Pharmacy Plan for Drug Dosing: Recommend vancomycin 1000mg IV q8h. Check trough in 48h. Pharmacy Service will continue to monitor and adjust dosing as required. Follow-Up Labs: Trough Vancomycin - 07/30/17 @ 0600
--- NOTE | 2017-07-28 14:16 | CT_ITS ---
STUDY: CT CHEST WITHOUT CONTRAST REASON FOR EXAM: Male, 32 years old. Chest pain. Pneumonia. History of left rib fractures. RADIATION DOSAGE (If Supplied By Facility): CTDIvol = ( 15.46 ) mGy, DLP = ( 556.23 ) mGycm TECHNIQUE: Transaxial imaging was performed without the administration of intravenous contrast material. Multiplanar coronal and sagittal images were reformatted. Individualized dose optimization techniques were used for this CT. COMPARISON: Comparison is made with prior examination dated July 25, 2017. FINDINGS: Moderate sized left pleural effusion with almost complete collapse of the left lung. Mild degree of aerated left lower lobe as well as left upper lobe is seen. Patchy alveolar airspace disease seen in the right upper lobe and right middle lobes. Small right pleural effusion with underlying right basilar atelectasis. Tiny pericardial effusion. Small right pleural effusion with patchy airspace disease in the right upper lobe. Normal mediastinum. Normal hilar regions. Normal unenhanced pulmonary arteries. Normal aorta arch and descending thoracic aorta. Normal osseous structures. There is no demonstrated abnormality of the visualized upper abdomen. CT/Chest without Contrast IMPRESSION: Moderate sized left pleural effusion with focal areas of loculation. Almost complete collapse of the left lung with mild degree of aeration of left upper lobe and left lower lobe. Electronically Signed: Avni Contreras MD at 15:14 EDT Tel [phone], Service support ,
--- NOTE | 2017-07-28 14:31 | PCM.CONS.GEN ---
Problem List (1) LLL CAP, multifoal Status: Acute (2) Nicotine dependence Status: Chronic Qualifiers: Nicotine product type: cigarettes Substance use status: uncomplicated Qualified Code(s): F17.210 - Nicotine dependence, cigarettes, uncomplicated (3) Rib contusion Status: Chronic Qualifiers: Encounter type: subsequent encounter Laterality: left Qualified Code(s): S20.212D - Contusion of left front wall of thorax, subsequent encounter Reason for Consult Date of Consultation: 07/28/17 Reason for Consultation: Pneumonia History of Present Illness: The patient is a 32 year old M, with no reported past medical history, who presented to [facility] on 07/25/2017 secondary to left-sided chest pain, shortness of breath and fatigue for approximately 1 week. Patient reports that this had been progressing for several days. There was some concern for possible rib fracture by the patient when he presented on 07/11/2017 secondary to left-sided rib pain following a house move. Patient states that he was told there was no fracture and had a muscle strain. Patient reports that he had not significantly improved since that time. In the emergency department, patient was noted to be tachypneic, but no tachycardia or hypoxemia was noted. Patient did have a CT scan of the chest which showed a multifocal consolidation of the left lower lobe. Patient was admitted to the floor and initiated on community-acquired antibiotics. Patient did have an echocardiogram that was significant for elevated pulmonary artery pressures of 51 mmHg. Patient's chest x-rays over the last 3 days has showed progression of infiltrate on the left side predominantly. Pulmonary consultation was obtained for recommendations. Patient reports a similar type history as reported above. No GI symptoms are noted. 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 Patient does state that he was recently incarcerated for a month for parole violation in the [facility]. Patient did not have any exposure to TB that he is aware of. Patient has never been in the . 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 After my interview, patient's girlfriend met me in the hallway and told me that the patient has had approximately 40 pound weight loss in the last 6 months that is unintentional. Patient also has been having diaphoretic episodes long before presentation to the hospital. Patient does have shortness of breath at baseline per her report. Review of systems otherwise negative ?10 systems Past Medical History Past Medical History (Chronic Problems): Chronic Problems Nicotine dependence (Chronic) Rib contusion (Chronic) Allergies Fish Containing Products Allergy (Verified 07/25/17 14:44) Hives tomato [Tomato] Allergy (Verified 07/25/17 14:44) Hives naproxen Adverse Reaction (Verified 07/25/17 14:44) Nausea/Vom/Diarrhea Home Medications: Ambulatory Orders Medication Instructions Recorded NK [NK] 07/11/17 Smoking Status: Current every day smoker - *Family History Paternal History Items: No pertinent history Review of Systems Comment: See HPI Patient Problems: Active and Suspected Problems LLL CAP, multifoal (Acute) Objective: Echocardiogram was discussed in the HPI. Patient also had multiple CT scans and x-rays that were reviewed. CT of the chest shows a left-sided pleural effusion with multifocal pneumonia. Chest x-ray showed progression of a left-sided infiltrate throughout the hospitalization. - Physical Exam General: Alert, Oriented x3, Cooperative, - - Conversational dyspnea. Appears older than stated age. Multiple tattoos noted. HEENT: Atraumatic, PERRLA, EOMI, Normocephalic Oral: Moist Mucosa, No Gingival or Mucosal Lesions/ Ulcerations, - - Fair dentition Neck: Supple, No JVD, No Nodes, Trachea Midline Lungs: No rhonchi, No wheeze, No rales, Diminished - Left greater than right, - - Symmetric expansion. No dullness to percussion. Cardiovascular: Normal S1, Normal S2, No murmurs, No rub noted, No Gallop, Tachycardic Abdomen: Bowel Sounds Present, Soft, Non Tender, Non-Distended Extremities: No clubbing, No cyanosis, No edema, Capillary Refill Less than 3 Seconds Skin: No rashes, No breakdown, - - Stria noted on the abdomen Musculoskeletal: No Tenderness to Palpation of Joints or Extremities, No Muscle Wasting Lymphatic: No Cervical, Supraclavicular, or Inguinal Adenopathy Neurological: Cranial nerves II-XII grossly intact, Neuro grossly intact, Motor Exam 5/5 strength throughout, Sensory exam intact to light touch and pain Psych/Mental Status: Anxious, Impulsive, Restless Vital Signs Temp Pulse Resp BP Pulse Ox 36.8 C 111 H 18 112/75 95 07/28/17 14:20 07/28/17 14:20 07/28/17 14:20 07/28/17 14:20 07/28/17 14:20 Oxygen Flow Rate (L/min) 2 Oxygen Delivery Method Room Air Weight: 91.399 kg Body Mass Index (BMI) 27.3 Intake and Output for Last 24 Hours 07/26/17 07/27/17 07/28/17 23:59 23:59 23:59 Intake Total 3201 / 3201 5103 / 5103 2573 / 2573 Output Total 250 / 250 Balance 2951 / 2951 5103 / 5103 2573 / 2573 Microbiology Past 72 Hours 07/26/17 09:00 Gram Stain - Final Sputum, Expectorated/Coughed Respiratory Culture - Final Presumptive C albicans 07/25/17 21:15 Streptococcus pneumoniae Antigen (M - Final Urine, Clean Catch 07/25/17 21:15 Legionella Antigen - Final Urine, Clean Catch 07/25/17 19:35 Influenza Types A,B Direct FA (MARIANNE) - Final Mucosa - Nasopharyngeal Laboratory Tests Past 24 Hrs 07/28/17 06:36 WBC 18.4 H RBC 4.28 L Hgb 12.3 L Hct 39.0 L MCV 91.1 MCH 28.7 MCHC 31.5 L RDW 15.0 H RDW Differential 50.1 H Plt Count 326 MPV 10.8 Immature Gran % (Auto) 0.200 Neut % (Auto) 84.4 H Lymph % (Auto) 6.2 L [place] % (Auto) 8.0 Eos % (Auto) 1.1 Baso % (Auto) 0.1 Absolute Neuts (auto) 15.5 H Absolute Lymphs (auto) 1.13 Total Counted Not Reportable Clinical Impression(s) from Imaging Studies Chest X-Ray 07/25/17 14:48 IMPRESSION: 1. Normal x-ray examination of the chest. 2. Limited inspiratory effort and increased gastric gaseous dilatation are the changes when compared to 07/11/2017. Electronically Signed: Dixon Abdalla MD at 15:23 EDT , Service support , Abdomen/Pelvis CT 07/25/17 14:49 IMPRESSION: No acute findings. Predominantly simple-appearing right renal cyst with a thin peripheral calcification. Nonemergent renal ultrasound is recommended to further evaluate. Electronically Signed: Caleb Orta DO at 16:11 EDT Tel , Service support , Chest CTA 07/25/17 14:49 IMPRESSION: 1. Negative for pulmonary embolism or thoracic aortic dissection 2. Left lower lobe consolidation, infiltrate and effusion with masslike appearance. There is also a small area of airspace disease in the anterior right middle lobe. Findings are concerning for multifocal pneumonia. Recommend repeat chest CT in 3-6 months following treatment to evaluate for resolution of left lower lobe symptoms 3. Mild mediastinal and subcarinal lymph nodes. Likely reactive in nature. Again, follow-up can be performed in 3-6 months Electronically Signed: Caleb Orta DO at 16:15 EDT Tel , Service support , Chest X-Ray 07/27/17 05:55 IMPRESSION: New finding of complete left lung field opacification, probably representing a combination of pleural effusion, atelectasis, and dense infiltrate. Would consider repeat CT scan of the chest for further evaluation. Small right pleural effusion. Mildly increased interstitial prominence the right lung. Electronically Signed: Sudhir Martinez MD at 7:06 EDT , Service support , Chest X-Ray 07/28/17 09:14 IMPRESSION: Persistent opacification of the left hemithorax although there has been mild degree of improved aeration of the left lung. Mild persistent increased markings at the right lung base. Electronically Signed: Avni Contreras MD at 10:00 EDT Tel [phone], Service support , Assessment/Plan Active and Suspected Problems LLL CAP, multifoal (Acute) RECOMMENDATIONS: 1. Obtain CT of the chest without contrast 2. Obtain HIV, CMP, MRSA swab 3. Schedule bronchodilators every 4 hours 4. Agree with increasing antibiotic spectrum for now IMPRESSIONS: 1. Left-sided pneumonia Unclear etiology at this time. Some clinical concern for unintentional weight loss and a history of diaphoresis prior to presentation. Patient has had increasing infiltrates, which could be from rehydration. Will obtain a CT scan of the chest. Chest x-ray does not appear to have any pleural effusion, but empyema or parapneumonic effusion should be entertained. If patient does have a pleural effusion, thoracentesis is likely indicated. Patient also has a significant leukocytosis, but relative lymphopenia. Some concern for possible HIV. Will obtain a CMP to evaluate for electrolytes and liver function studies. MRSA swab will be sent. Patient should continue vancomycin and Zosyn for now. If MRSA swab was negative, likely okay to discontinue vancomycin. The results of the CT, addition of pulmonary toileting measures and possible bronchoscopy may be indicated for evaluation of PCP pneumonia. 2. Tobacco abuse Despite relatively young age, patient reportedly has been smoking approximately 1 pack over the last 18 years. COPD would be a consideration. Significant emphysematous changes were none noted on CT scan, but patient is acutely ill at this time. Patient should have complete pulmonary function test as an outpatient. We will schedule bronchodilators for now. We will not initiate steroid therapy secondary to the concern of uncovered infection. Code Visit Inpatient E&M: 99658 Init Hosp L3
--- NOTE | 2017-07-28 14:46 | CON.PCM_ITS ---
Problem List (1) LLL CAP, multifoal Status: Acute (2) Nicotine dependence Status: Chronic Qualifiers: Nicotine product type: cigarettes Substance use status: uncomplicated Qualified Code(s): F17.210 - Nicotine dependence, cigarettes, uncomplicated (3) Rib contusion Status: Chronic Qualifiers: Encounter type: subsequent encounter Laterality: left Qualified Code(s): S20.212D - Contusion of left front wall of thorax, subsequent encounter Reason for Consult Date of Consultation: 07/28/17 Reason for Consultation: Pneumonia History of Present Illness: The patient is a 32 year old M, with no reported past medical history, who presented to [facility] on 07/25/2017 secondary to left-sided chest pain, shortness of breath and fatigue for approximately 1 week. Patient reports that this had been progressing for several days. There was some concern for possible rib fracture by the patient when he presented on 07/11/2017 secondary to left-sided rib pain following a house move. Patient states that he was told there was no fracture and had a muscle strain. Patient reports that he had not significantly improved since that time. In the emergency department, patient was noted to be tachypneic, but no tachycardia or hypoxemia was noted. Patient did have a CT scan of the chest which showed a multifocal consolidation of the left lower lobe. Patient was admitted to the floor and initiated on community-acquired antibiotics. Patient did have an echocardiogram that was significant for elevated pulmonary artery pressures of 51 mmHg. Patient's chest x-rays over the last 3 days has showed progression of infiltrate on the left side predominantly. Pulmonary consultation was obtained for recommendations. Patient reports a similar type history as reported above. No GI symptoms are noted. 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 Patient does state that he was recently incarcerated for a month for parole violation in the [facility]. Patient did not have any exposure to TB that he is aware of. Patient has never been in the . 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 After my interview, patient's girlfriend met me in the hallway and told me that the patient has had approximately 40 pound weight loss in the last 6 months that is unintentional. Patient also has been having diaphoretic episodes long before presentation to the hospital. Patient does have shortness of breath at baseline per her report. Review of systems otherwise negative ?10 systems Past Medical History Past Medical History (Chronic Problems): Chronic Problems Nicotine dependence (Chronic) Rib contusion (Chronic) Allergies Fish Containing Products Allergy (Verified 07/25/17 14:44) Hives tomato [Tomato] Allergy (Verified 07/25/17 14:44) Hives naproxen Adverse Reaction (Verified 07/25/17 14:44) Nausea/Vom/Diarrhea Home Medications: Ambulatory Orders Medication Instructions Recorded NK [NK] 07/11/17 Smoking Status: Current every day smoker - *Family History Paternal History Items: No pertinent history Review of Systems Comment: See HPI Patient Problems: Active and Suspected Problems LLL CAP, multifoal (Acute) Objective: Echocardiogram was discussed in the HPI. Patient also had multiple CT scans and x-rays that were reviewed. CT of the chest shows a left-sided pleural effusion with multifocal pneumonia. Chest x-ray showed progression of a left- sided infiltrate throughout the hospitalization. - Physical Exam General: Alert, Oriented x3, Cooperative, - - Conversational dyspnea. Appears older than stated age. Multiple tattoos noted. HEENT: Atraumatic, PERRLA, EOMI, Normocephalic Oral: Moist Mucosa, No Gingival or Mucosal Lesions/ Ulcerations, - - Fair dentition Neck: Supple, No JVD, No Nodes, Trachea Midline Lungs: No rhonchi, No wheeze, No rales, Diminished - Left greater than right, - - Symmetric expansion. No dullness to percussion. Cardiovascular: Normal S1, Normal S2, No murmurs, No rub noted, No Gallop, Tachycardic Abdomen: Bowel Sounds Present, Soft, Non Tender, Non-Distended Extremities: No clubbing, No cyanosis, No edema, Capillary Refill Less than 3 Seconds Skin: No rashes, No breakdown, - - Stria noted on the abdomen Musculoskeletal: No Tenderness to Palpation of Joints or Extremities, No Muscle Wasting Lymphatic: No Cervical, Supraclavicular, or Inguinal Adenopathy Neurological: Cranial nerves II-XII grossly intact, Neuro grossly intact, Motor Exam 5/5 strength throughout, Sensory exam intact to light touch and pain Psych/Mental Status: Anxious, Impulsive, Restless Vital Signs Temp Pulse Resp BP Pulse Ox 36.8 C 111 H 18 112/75 95 07/28/17 14:20 07/28/17 14:20 07/28/17 14:20 07/28/17 14:20 07/28/17 14:20 Oxygen Flow Rate (L/min) 2 Oxygen Delivery Method Room Air Weight: 91.399 kg Body Mass Index (BMI) 27.3 Intake and Output for Last 24 Hours 07/26/17 07/27/17 07/28/17 23:59 23:59 23:59 Intake Total 3201 / 3201 5103 / 5103 2573 / 2573 Output Total 250 / 250 Balance 2951 / 2951 5103 / 5103 2573 / 2573 Microbiology Past 72 Hours 07/26/17 09:00 Gram Stain - Final Sputum, Expectorated/Coughed Respiratory Culture - Final Presumptive C albicans 07/25/17 21:15 Streptococcus pneumoniae Antigen (M - Final Urine, Clean Catch 07/25/17 21:15 Legionella Antigen - Final Urine, Clean Catch 07/25/17 19:35 Influenza Types A,B Direct FA (MARIANNE) - Final Mucosa - Nasopharyngeal Laboratory Tests Past 24 Hrs 07/28/17 06:36 WBC 18.4 H RBC 4.28 L Hgb 12.3 L Hct 39.0 L MCV 91.1 MCH 28.7 MCHC 31.5 L RDW 15.0 H RDW Differential 50.1 H Plt Count 326 MPV 10.8 Immature Gran % (Auto) 0.200 Neut % (Auto) 84.4 H Lymph % (Auto) 6.2 L [place] % (Auto) 8.0 Eos % (Auto) 1.1 Baso % (Auto) 0.1 Absolute Neuts (auto) 15.5 H Absolute Lymphs (auto) 1.13 Total Counted Not Reportable Clinical Impression(s) from Imaging Studies Chest X-Ray 07/25/17 14:48 IMPRESSION: 1. Normal x-ray examination of the chest. 2. Limited inspiratory effort and increased gastric gaseous dilatation are the changes when compared to 07/11/2017. Electronically Signed: Dixon Abdalla MD at 15:23 EDT , Service support , Abdomen/Pelvis CT 07/25/17 14:49 IMPRESSION: No acute findings. Predominantly simple-appearing right renal cyst with a thin peripheral calcification. Nonemergent renal ultrasound is recommended to further evaluate. Electronically Signed: Caleb Orta DO at 16:11 EDT Tel , Service support , Chest CTA 07/25/17 14:49 IMPRESSION: 1. Negative for pulmonary embolism or thoracic aortic dissection 2. Left lower lobe consolidation, infiltrate and effusion with masslike appearance. There is also a small area of airspace disease in the anterior right middle lobe. Findings are concerning for multifocal pneumonia. Recommend repeat chest CT in 3-6 months following treatment to evaluate for resolution of left lower lobe symptoms 3. Mild mediastinal and subcarinal lymph nodes. Likely reactive in nature. Again, follow-up can be performed in 3-6 months Electronically Signed: Caleb Orta DO at 16:15 EDT Tel , Service support , Chest X-Ray 07/27/17 05:55 IMPRESSION: New finding of complete left lung field opacification, probably representing a combination of pleural effusion, atelectasis, and dense infiltrate. Would consider repeat CT scan of the chest for further evaluation. Small right pleural effusion. Mildly increased interstitial prominence the right lung. Electronically Signed: Sudhir Martinez MD at 7:06 EDT , Service support , Chest X-Ray 07/28/17 09:14 IMPRESSION: Persistent opacification of the left hemithorax although there has been mild degree of improved aeration of the left lung. Mild persistent increased markings at the right lung base. Electronically Signed: Avni Contreras MD at 10:00 EDT Tel [phone], Service support , Assessment/Plan Active and Suspected Problems LLL CAP, multifoal (Acute) RECOMMENDATIONS: 1. Obtain CT of the chest without contrast 2. Obtain HIV, CMP, MRSA swab 3. Schedule bronchodilators every 4 hours 4. Agree with increasing antibiotic spectrum for now IMPRESSIONS: 1. Left-sided pneumonia Unclear etiology at this time. Some clinical concern for unintentional weight loss and a history of diaphoresis prior to presentation. Patient has had increasing infiltrates, which could be from rehydration. Will obtain a CT scan of the chest. Chest x-ray does not appear to have any pleural effusion, but empyema or parapneumonic effusion should be entertained. If patient does have a pleural effusion, thoracentesis is likely indicated. Patient also has a significant leukocytosis, but relative lymphopenia. Some concern for possible HIV. Will obtain a CMP to evaluate for electrolytes and liver function studies. MRSA swab will be sent. Patient should continue vancomycin and Zosyn for now. If MRSA swab was negative, likely okay to discontinue vancomycin. The results of the CT, addition of pulmonary toileting measures and possible bronchoscopy may be indicated for evaluation of PCP pneumonia. 2. Tobacco abuse Despite relatively young age, patient reportedly has been smoking approximately 1 pack over the last 18 years. COPD would be a consideration. Significant emphysematous changes were none noted on CT scan, but patient is acutely ill at this time. Patient should have complete pulmonary function test as an outpatient. We will schedule bronchodilators for now. We will not initiate steroid therapy secondary to the concern of uncovered infection. Code Visit Inpatient E&M: 55500 Init Hosp L3
[2017-07-28 15:33] LABS: ALB/GLOB Ratio 0.5 RATIO (0.9-2.4); AST(SGOT) 11 U/L (15-37); Alanine Aminotransfer ALT/SGPT 18 U/L (16-61); Albumin, Serum 2.2 g/dL (3.2-5.0); Alkaline Phosphatase 130 U/L (45-117); Anion Gap 6 (5-15); BUN 16 mg/dL (7-18); BUN/Creat Ratio 18.4 RATIO (10-20); Calcium,Total 7.9 mg/dL (8.5-10.1); Chloride 105 mmol/L (98-107); Creatinine, Serum 0.87 mg/dL (0.70-1.30); EST Glomerular Filtration Rate 107 mL/min (>60); Est Glom Filt Rate - Afr Amer 130 mL/min (>60); Estimated Creatinine Clearance 132.55 ml/min; Globulin 4.6 g/dL (2.2-4.2); Glucose 125 mg/dL (74-106); Potassium 4.6 mmol/L (3.5-5.1); Protein, Total 6.8 g/dL (6.4-8.2); Sodium Level 139 mmol/L (136-145)
[2017-07-28 16:18] LABS: HIV - WCH Non-Reactive (Nonreactive)
[2017-07-28] MEDS: Piperacil/Tazobactam 3.375 GM/50 ML ML IV ×2 (16:20→21:41)
[2017-07-28 16:52] LABS: Probe Check PASS
[2017-07-28 16:53] LABS: M R Staph aureus DNA By PCR POSITIVE (Negative)
[2017-07-28] MEDS: Acetaminophen 325 MG Tablet 650 MG PO (20:20)
[2017-07-29] VITALS (21 sets, daily range): BP systolic 114–130; BP diastolic 55–80; PULSE 97–120; RESP 16–24; TEMP 36.7–39.1; O2SAT 88–97
--- NOTE | 2017-07-29 | FLU_PTH ---
PATIENT: TOMMIE LOPEZ LOC: MS2 U#:[id number] AGE/SX: 32/M ROOM: [facility] – [place] RE07/25/[address]: Dr. Radha Rocha MD : [id number] BED: 1 DIS: 07/31/2017 SPEC #: [id number] RECD: 07/29/17 11:36 STATUS: PREM REQ #: [id number] CYNTHIA: 07/29/17 00:[address]: Taz Graham DEPT: CYTOLOGY RECD BY: Kartik Goff ENTERED: 07/29/17 11:37 SP TYPE: Fluid OTHR DR: MD Luis Enrique Vera MD Dr. Prakash Chand, MD No Primary Care Phys Tissues: Pleural fluid, NOS Procedures: Pap Stain (control) Special Stain Group II Surgery Specimen Level IV Cell Block Cytospin Fluid Comments: @ Ordering doctor for SSII edited from to @ by GUILLEOD at 07/29/17 1212 @ Ordering doctor for SUIV edited from to @ by RGOOD at 07/29/17 1212 @ Ordering doctor for CYSPIN edited from to @ by RGOOD at 07/29/17 1212 @ Submitting doctor edited from to @ by RGOOD at 07/29/17 1212 HEADER OPERATION: Ultrasound-guided thoracentesis PRE-OP DIAGNOSIS: Left pleural effusion TISSUE SUBMITTED: Thoracentesis fluid for cytology DIAGNOSIS CYTOLOGY Thoracentesis fluid for cytology (cytospin and cell block): Negative for malignant cells. Acute inflammation. TERRI:hair 07/30/17 COMMENT Clinical correlation is necessary. CYTOLOGY STUDY Slides are reviewed. The specimen predominantly consists of numerous neutrophils, a few macrophages, mesothelial cells and lymphocytes. CYTOLOGY GROSS Received is 100 ml of yellow cloudy fluid labeled with the patient's name and and designated per the requisition as thoracentesis. Submitted for cytology preparation including cell block. / 5/18 TC:2 CPT: 06749, 06331
[2017-07-29] MEDS: 0.9% Normal Saline 1,000 ML 100 ML IV ×2 (00:01→10:57)
[2017-07-29] MEDS: oxyCODONE 5 MG Tablet 10 MG PO ×4 (02:55→22:19)
[2017-07-29] MEDS: Ipratropium/Albuterol Sulfate 3 ML AMPUL.NEB INHALATION ×6 (03:26→22:58)
[2017-07-29] MEDS: Piperacil/Tazobactam 3.375 GM/50 ML ML IV ×3 (05:44→22:09)
--- NOTE | 2017-07-29 05:44 | US_ITS ---
PROCEDURE: ULTRASOUND GUIDED THORACENTESIS. DATE: July 29, 2017.. INDICATION: Male, 32 years old. Left pleural effusion. PHYSICIAN: Avni Contreras M.D. PROCEDURE: The risks, benefits, and alternatives to the procedure were explained to the patient. The specific risks of bleeding, infection, and pneumothorax requiring chest tube insertion were discussed and accepted. Written informed consent was obtained. Ultrasonographic evaluation of the left lower pleural space was carried out. An adequate pocket was identified. The patient was placed in the sitting, upright position. The overlying skin was prepped and draped in sterile fashion. 1% lidocaine was administered subcutaneously for local anesthesia. Under ultrasound guidance, a 6 [place] thoracentesis needle/catheter system was advanced into the left posterior lower pleural fluid collection. Approximately 760 mL of claude-colored fluid was drained. The catheter was removed, and a sterile dressing was applied. A specimen was collected and sent to the laboratory for analysis, as requested by the referring clinician. The patient tolerated the procedure well. A chest x-ray was ordered. US/Thoracentesis W US IMPRESSION: Ultrasound-guided left thoracentesis. Electronically Signed: Avni Contreras MD at 11:31 EDT Tel [phone], Service support ,
[2017-07-29 06:01] LABS: Absolute Lymphocyte Count 1.11 X10^3/ul (0.83-4.51); Absolute Neutrophil Count 9.8 X10^3/uL (2.0-7.7); Basophil# 0.02 X10^3/uL; Basophil% 0.2 % (0-1); Eosinophil# 0.19 X10^3/uL; Eosinophils% 1.6 % (0-5); Hematocrit 35.7 % (40-54); Hemoglobin 11.6 g/dl (13.0-16.5); Lymphocyte # 1.11 X10^3/ul (4.0); Lymphocyte % 9.1 % (19-41); Mean Corp Hgb Conc 32.5 g/gl (32-36); Mean Corpuscular Hgb 29.5 pg (27.0-32.0); Mean Corpuscular Volume 90.8 fL (80-94); Mean Platelet Vol. 10.9 fl (6.2-12.0); Neutrophil # 9.75 X10^3/uL (2.7-7.7); Neutrophil % 79.9 % (47-70); Platelet Count 328 K/mm3 (150-450); RBC Distribution Width CV 15.1 % (11.6-14.6); RBC Distribution Width SD 49.7 fl (35.1-43.9); Red Blood Count 3.93 M/mm3 (4.6-6.2); White Blood Count 12.2 K/mm3 (4.4-11.0)
[2017-07-29 06:03] LABS: International Normalized Ratio 1.5
[2017-07-29 06:04] LABS: Partial Thromboplast Time 44.5 Seconds (24.1-36.2)
[2017-07-29 06:05] LABS: POSITIVE COUNT NO; POSITIVE DIFFERENTIAL NO; POSITIVE MORPHOLOGY NO
--- NOTE | 2017-07-29 06:31 | PCM.PROGNOTE ---
Patient Problems: Active and Suspected Problems LLL CAP, multifoal (Acute) Subjective: Patient reports little subjective change compared to previous. Patient did have a fever overnight and continues to have diaphoretic episodes. Patient denies any change in dyspnea on exertion. Pain is relatively controlled with current measures. Objective: CT scan of the chest was personally reviewed. This does show a left apical loculated effusion. - Physical Exam General: Alert, Oriented x3, Cooperative, - - Mild conversational dyspnea. HEENT: Atraumatic, PERRLA, EOMI, Normocephalic, - - Scleral injection without icterus Oral: Moist Mucosa, No Gingival or Mucosal Lesions/ Ulcerations, - - Fair dentition Neck: Supple, No JVD, No Nodes, Trachea Midline Lungs: No rhonchi, No wheeze, No rales, Diminished, - - Symmetric expansion. Dullness to percussion at the apex Cardiovascular: Normal S1, Normal S2, No murmurs, No rub noted, No Gallop, Tachycardic Abdomen: Bowel Sounds Present, Soft, Non Tender, Non-Distended, Obese Extremities: No clubbing, No cyanosis, No edema Skin: - - No significant change compared to previous Musculoskeletal: No Tenderness to Palpation of Joints or Extremities, No Muscle Wasting Lymphatic: No Cervical, Supraclavicular, or Inguinal Adenopathy Neurological: Cranial nerves II-XII grossly intact, Neuro grossly intact, Motor Exam 5/5 strength throughout Psych/Mental Status: Anxious, Restless Vital Signs Temp Pulse Resp BP Pulse Ox 37.6 C H 118 H 20 H 117/65 94 07/29/17 05:50 07/29/17 05:50 07/29/17 05:50 07/29/17 05:50 07/29/17 05:50 Oxygen Flow Rate (L/min) 2 Oxygen Delivery Method Room Air Weight: 91.399 kg Body Mass Index (BMI) 27.3 Intake and Output for Last 24 Hours 07/27/17 07/28/17 07/29/17 23:59 23:59 23:59 Intake Total 5103 / 5103 4175 / 4175 721 / 721 Balance 5103 / 5103 4175 / 4175 721 / 721 Microbiology Past 72 Hours 07/25/17 16:37 Blood Culture - Preliminary Blood Culture (Wb) - Anticubital Right No growth in 48 hours. 07/25/17 16:37 Blood Culture - Preliminary Blood Culture (Wb) - Anticubital Left No growth in 48 hours. 07/26/17 09:00 Gram Stain - Final Sputum, Expectorated/Coughed Respiratory Culture - Final Presumptive C albicans Laboratory Tests Past 24 Hrs 07/28/17 07/28/17 07/28/17 06:36 13:07 13:07 WBC 18.4 H RBC 4.28 L Hgb 12.3 L Hct 39.0 L MCV 91.1 MCH 28.7 MCHC 31.5 L RDW 15.0 H RDW Differential 50.1 H Plt Count 326 MPV 10.8 Immature Gran % (Auto) 0.200 Neut % (Auto) 84.4 H Lymph % (Auto) 6.2 L [place] % (Auto) 8.0 Eos % (Auto) 1.1 Baso % (Auto) 0.1 Absolute Neuts (auto) 15.5 H Absolute Lymphs (auto) 1.13 Total Counted Not Reportable PT INR APTT Sodium 139 Potassium 4.6 Chloride 105 Carbon Dioxide 28.0 Anion Gap 6 BUN 16 Creatinine 0.87 Estim Creat Clear Calc 132.55 Est GFR (MDRD) Af Amer 130 Est GFR (MDRD) Non-Af 107 BUN/Creatinine Ratio 18.4 Glucose 125 H Calcium 7.9 L Total Bilirubin 0.50 AST 11 L ALT 18 Alkaline Phosphatase 130 H Lactate Dehydrogenase Total Protein 6.8 Albumin 2.2 L Globulin 4.6 H Albumin/Globulin Ratio 0.5 L HIV 1&2 Antibody Non-Reactive MRSA (PCR) 07/28/17 07/29/17 07/29/17 15:30 05:25 05:25 WBC 12.2 H RBC 3.93 L Hgb 11.6 L Hct 35.7 L MCV 90.8 MCH 29.5 MCHC 32.5 RDW 15.1 H RDW Differential 49.7 H Plt Count 328 MPV 10.9 Immature Gran % (Auto) 0.200 Neut % (Auto) 79.9 H Lymph % (Auto) 9.1 L [place] % (Auto) 9.0 Eos % (Auto) 1.6 Baso % (Auto) 0.2 Absolute Neuts (auto) 9.8 H Absolute Lymphs (auto) 1.11 Total Counted Not Reportable PT 18.0 H INR 1.5 APTT 44.5 H Sodium Potassium Chloride Carbon Dioxide Anion Gap BUN Creatinine Estim Creat Clear Calc Est GFR (MDRD) Af Amer Est GFR (MDRD) Non-Af BUN/Creatinine Ratio Glucose Calcium Total Bilirubin AST ALT Alkaline Phosphatase Lactate Dehydrogenase Total Protein Albumin Globulin Albumin/Globulin Ratio HIV 1&2 Antibody MRSA (PCR) POSITIVE H 07/29/17 05:25 WBC RBC Hgb Hct MCV MCH MCHC RDW RDW Differential Plt Count MPV Immature Gran % (Auto) Neut % (Auto) Lymph % (Auto) [place] % (Auto) Eos % (Auto) Baso % (Auto) Absolute Neuts (auto) Absolute Lymphs (auto) Total Counted PT INR APTT Sodium Potassium Chloride Carbon Dioxide Anion Gap BUN Creatinine Estim Creat Clear Calc Est GFR (MDRD) Af Amer Est GFR (MDRD) Non-Af BUN/Creatinine Ratio Glucose Calcium Total Bilirubin AST ALT Alkaline Phosphatase Lactate Dehydrogenase Pending Total Protein Albumin Globulin Albumin/Globulin Ratio HIV 1&2 Antibody MRSA (PCR) Clinical Impression(s) from Imaging Studies Chest X-Ray 07/28/17 09:14 IMPRESSION: Persistent opacification of the left hemithorax although there has been mild degree of improved aeration of the left lung. Mild persistent increased markings at the right lung base. Electronically Signed: Avni Contreras MD at 10:00 EDT Tel [phone], Service support , Chest CT 07/28/17 14:16 IMPRESSION: Moderate sized left pleural effusion with focal areas of loculation. Almost complete collapse of the left lung with mild degree of aeration of left upper lobe and left lower lobe. Electronically Signed: Avni Contreras MD at 15:14 EDT Tel [phone], Service support , Medical Necessity - Tobacco Use Smoking Status: Current every day smoker Assessment/Plan Active and Suspected Problems LLL CAP, multifoal (Acute) RECOMMENDATIONS: 1. Obtain diagnostic and therapeutic thoracentesis 2. Continue broad-spectrum antibiotics 3. Schedule bronchodilators every 4 hours 4. Vancomycin dosing per pharmacy IMPRESSIONS: 1. Loculated left-sided pneumonia Patient's HIV screen was negative. However, patient does have nasal MRSA noted and CT scan shows a loculated pleural effusion. Some concern for possible parapneumonic versus empyema. Patient requires a diagnostic and therapeutic thoracentesis. Pending results, patient may need to be transferred for thoracotomy versus chest tube placement. Labs have been ordered. Wean oxygen as tolerated. 2. Tobacco abuse Despite relatively young age, patient reportedly has been smoking approximately 1 pack over the last 18 years. COPD would be a consideration. Significant emphysematous changes were none noted on CT scan, but patient is acutely ill at this time. Patient should have complete pulmonary function test as an outpatient. We will schedule bronchodilators for now. We will not initiate steroid therapy secondary to the concern of uncovered infection. Code Visit Inpatient E&M: [id number] [facility] Hosp L3
--- NOTE | 2017-07-29 06:35 | PN_ITS ---
Patient Problems: Active and Suspected Problems LLL CAP, multifoal (Acute) Subjective: Patient reports little subjective change compared to previous. Patient did have a fever overnight and continues to have diaphoretic episodes. Patient denies any change in dyspnea on exertion. Pain is relatively controlled with current measures. Objective: CT scan of the chest was personally reviewed. This does show a left apical loculated effusion. - Physical Exam General: Alert, Oriented x3, Cooperative, - - Mild conversational dyspnea. HEENT: Atraumatic, PERRLA, EOMI, Normocephalic, - - Scleral injection without icterus Oral: Moist Mucosa, No Gingival or Mucosal Lesions/ Ulcerations, - - Fair dentition Neck: Supple, No JVD, No Nodes, Trachea Midline Lungs: No rhonchi, No wheeze, No rales, Diminished, - - Symmetric expansion. Dullness to percussion at the apex Cardiovascular: Normal S1, Normal S2, No murmurs, No rub noted, No Gallop, Tachycardic Abdomen: Bowel Sounds Present, Soft, Non Tender, Non-Distended, Obese Extremities: No clubbing, No cyanosis, No edema Skin: - - No significant change compared to previous Musculoskeletal: No Tenderness to Palpation of Joints or Extremities, No Muscle Wasting Lymphatic: No Cervical, Supraclavicular, or Inguinal Adenopathy Neurological: Cranial nerves II-XII grossly intact, Neuro grossly intact, Motor Exam 5/5 strength throughout Psych/Mental Status: Anxious, Restless Vital Signs Temp Pulse Resp BP Pulse Ox 37.6 C H 118 H 20 H 117/65 94 07/29/17 05:50 07/29/17 05:50 07/29/17 05:50 07/29/17 05:50 07/29/17 05:50 Oxygen Flow Rate (L/min) 2 Oxygen Delivery Method Room Air Weight: 91.399 kg Body Mass Index (BMI) 27.3 Intake and Output for Last 24 Hours 07/27/17 07/28/17 07/29/17 23:59 23:59 23:59 Intake Total 5103 / 5103 4175 / 4175 721 / 721 Balance 5103 / 5103 4175 / 4175 721 / 721 Microbiology Past 72 Hours 07/25/17 16:37 Blood Culture - Preliminary Blood Culture (Wb) - Anticubital Right No growth in 48 hours. 07/25/17 16:37 Blood Culture - Preliminary Blood Culture (Wb) - Anticubital Left No growth in 48 hours. 07/26/17 09:00 Gram Stain - Final Sputum, Expectorated/Coughed Respiratory Culture - Final Presumptive C albicans Laboratory Tests Past 24 Hrs 07/28/17 07/28/17 07/28/17 06:36 13:07 13:07 WBC 18.4 H RBC 4.28 L Hgb 12.3 L Hct 39.0 L MCV 91.1 MCH 28.7 MCHC 31.5 L RDW 15.0 H RDW Differential 50.1 H Plt Count 326 MPV 10.8 Immature Gran % (Auto) 0.200 Neut % (Auto) 84.4 H Lymph % (Auto) 6.2 L [place] % (Auto) 8.0 Eos % (Auto) 1.1 Baso % (Auto) 0.1 Absolute Neuts (auto) 15.5 H Absolute Lymphs (auto) 1.13 Total Counted Not Reportable PT INR APTT Sodium 139 Potassium 4.6 Chloride 105 Carbon Dioxide 28.0 Anion Gap 6 BUN 16 Creatinine 0.87 Estim Creat Clear Calc 132.55 Est GFR (MDRD) Af Amer 130 Est GFR (MDRD) Non-Af 107 BUN/Creatinine Ratio 18.4 Glucose 125 H Calcium 7.9 L Total Bilirubin 0.50 AST 11 L ALT 18 Alkaline Phosphatase 130 H Lactate Dehydrogenase Total Protein 6.8 Albumin 2.2 L Globulin 4.6 H Albumin/Globulin Ratio 0.5 L HIV 1&2 Antibody Non-Reactive MRSA (PCR) 07/28/17 07/29/17 07/29/17 15:30 05:25 05:25 WBC 12.2 H RBC 3.93 L Hgb 11.6 L Hct 35.7 L MCV 90.8 MCH 29.5 MCHC 32.5 RDW 15.1 H RDW Differential 49.7 H Plt Count 328 MPV 10.9 Immature Gran % (Auto) 0.200 Neut % (Auto) 79.9 H Lymph % (Auto) 9.1 L [place] % (Auto) 9.0 Eos % (Auto) 1.6 Baso % (Auto) 0.2 Absolute Neuts (auto) 9.8 H Absolute Lymphs (auto) 1.11 Total Counted Not Reportable PT 18.0 H INR 1.5 APTT 44.5 H Sodium Potassium Chloride Carbon Dioxide Anion Gap BUN Creatinine Estim Creat Clear Calc Est GFR (MDRD) Af Amer Est GFR (MDRD) Non-Af BUN/Creatinine Ratio Glucose Calcium Total Bilirubin AST ALT Alkaline Phosphatase Lactate Dehydrogenase Total Protein Albumin Globulin Albumin/Globulin Ratio HIV 1&2 Antibody MRSA (PCR) POSITIVE H 07/29/17 05:25 WBC RBC Hgb Hct MCV MCH MCHC RDW RDW Differential Plt Count MPV Immature Gran % (Auto) Neut % (Auto) Lymph % (Auto) [place] % (Auto) Eos % (Auto) Baso % (Auto) Absolute Neuts (auto) Absolute Lymphs (auto) Total Counted PT INR APTT Sodium Potassium Chloride Carbon Dioxide Anion Gap BUN Creatinine Estim Creat Clear Calc Est GFR (MDRD) Af Amer Est GFR (MDRD) Non-Af BUN/Creatinine Ratio Glucose Calcium Total Bilirubin AST ALT Alkaline Phosphatase Lactate Dehydrogenase Pending Total Protein Albumin Globulin Albumin/Globulin Ratio HIV 1&2 Antibody MRSA (PCR) Clinical Impression(s) from Imaging Studies Chest X-Ray 07/28/17 09:14 IMPRESSION: Persistent opacification of the left hemithorax although there has been mild degree of improved aeration of the left lung. Mild persistent increased markings at the right lung base. Electronically Signed: Avni Contreras MD at 10:00 EDT Tel [phone], Service support , Chest CT 07/28/17 14:16 IMPRESSION: Moderate sized left pleural effusion with focal areas of loculation. Almost complete collapse of the left lung with mild degree of aeration of left upper lobe and left lower lobe. Electronically Signed: Avni Contreras MD at 15:14 EDT Tel [phone], Service support , Medical Necessity - Tobacco Use Smoking Status: Current every day smoker Assessment/Plan Active and Suspected Problems LLL CAP, multifoal (Acute) RECOMMENDATIONS: 1. Obtain diagnostic and therapeutic thoracentesis 2. Continue broad-spectrum antibiotics 3. Schedule bronchodilators every 4 hours 4. Vancomycin dosing per pharmacy IMPRESSIONS: 1. Loculated left-sided pneumonia Patient's HIV screen was negative. However, patient does have nasal MRSA noted and CT scan shows a loculated pleural effusion. Some concern for possible parapneumonic versus empyema. Patient requires a diagnostic and therapeutic thoracentesis. Pending results, patient may need to be transferred for thoracotomy versus chest tube placement. Labs have been ordered. Wean oxygen as tolerated. 2. Tobacco abuse Despite relatively young age, patient reportedly has been smoking approximately 1 pack over the last 18 years. COPD would be a consideration. Significant emphysematous changes were none noted on CT scan, but patient is acutely ill at this time. Patient should have complete pulmonary function test as an outpatient. We will schedule bronchodilators for now. We will not initiate steroid therapy secondary to the concern of uncovered infection. Code Visit Inpatient E&M: [id number] [facility] Hosp L3
[2017-07-29 06:49] LABS: LDH 157 U/L (87-241)
[2017-07-29] MEDS: Acetaminophen 325 MG Tablet 650 MG PO ×2 (08:24→22:23)
--- NOTE | 2017-07-29 09:01 | NURSING ---
vitals show that patient was on RA during night last night 07/28-07/29. However, pt was on 2L t/o night and was on at change of shift this morning.
--- NOTE | 2017-07-29 09:12 | NURSING ---
This nurse texted Dr. Graham and made him aware of patients temp of 102.3 and Hr 119 this morning with a INR of 1.5. Dr. Graham still okay with patient getting the Thoracentesis done this morning. Antonia French said to have patient there by 9:35-9:40 this morning.
--- NOTE | 2017-07-29 09:54 | NURSING ---
pt taken off of unit at this time for thoracentesis. significant other with patient
--- NOTE | 2017-07-29 10:25 | RAD_ITS ---
STUDY: X-RAY CHEST REASON FOR EXAM: Male, 32 years old. Status post left thoracentesis. TECHNIQUE: AP expiration and inspiration views were obtained. COMPARISON: Comparison is made with prior study dated July 28, 2017. FINDINGS: The patient is status post left thoracentesis. There is no evidence of pneumothorax. Residual infiltration in the left hemithorax is seen. RAD/Chest Insp/Exp 2 View IMPRESSION: Status post left thoracentesis. There is no evidence of pneumothorax. Electronically Signed: Avni Contreras MD at 11:30 EDT Tel [phone], Service support ,
--- NOTE | 2017-07-29 10:31 | NURSING ---
Antonia RN from radiology called and states that patient is having a CXR completed at this time and then will return to our unit. She reports that patient had 760cc of clear yellow fluid removed from lung. Pt reports feeling better. Vitals stable and pt on 2L oxygen at this time.
[2017-07-29] MEDS: Fluconazole 100 MG Tablet 200 MG PO (10:56)
[2017-07-29] MEDS: guaiFENesin 1,200 MG Tablet 1200 MG PO ×2 (10:56→22:10)
[2017-07-29 11:21] LABS: Cytology, Body Fluid / CSF SEE PATHOLOGY REPORT
[2017-07-29 11:47] LABS: Body Fluid Mononuclear WBC # 0.083 10^3/uL; Body Fluid Mononuclear WBC % 6.4 %; Body Fluid Polynuclear WBC # 1.216 10^3/uL; Body Fluid Polynuclear WBC % 93.6 %; White Blood Count/Body Fluid 1.299 10^3/uL
[2017-07-29 11:59] LABS: Glucose, Body Fluid 36 mg/dL (40-70); LDH,Body Fluid 1318 Units/l (Not Establ.); Protein, Body Fluid 4.6 g/dL (Not Establ.)
--- NOTE | 2017-07-29 12:32 | CASEMGMT ---
[facility] Tertiary Care Review: , [facility]NA, [facility], [facility], [facility].
[2017-07-29 12:38] LABS: Auto B Fluid Analyzer BKGD Ct COUNTS W/IN LIMITS (W/IN LIMITS); Lymphocytes 4 %; Monocytes 4 %; Neutrophil (Segs) 92 %
[2017-07-29 12:39] LABS: Appearance/Body Fluid SL CLDY; Body Fluid QC Type(s) BF1Q; Color/Body Fluid YELLOW; Red Cell Count/Body Fluid 14 /mm3; Source- Body Fluid PLEURAL FLUID
--- NOTE | 2017-07-29 15:46 | PCM.PN.HOSP ---
Patient Problems: Active and Suspected Problems LLL CAP, multifoal (Acute) Subjective: cc: Shortness of breath and cough Objective: He still has significant shortness of breath , he spiked a fever today he is to go down for thoracentesis by interventional radiology. Repeat CT scan revealed moderate left-sided pleural effusion with loculations, went ultrasound-guided thoracentesis today with drainage of`~ 760 mL of claude-colored fluid . Vitals/I&O's: Vital Signs Temp Pulse Resp BP Pulse Ox 98.9 F 105 H 16 126/66 H 93 07/29/17 14:06 07/29/17 14:06 07/29/17 14:06 07/29/17 14:06 07/29/17 14:06 Oxygen Flow Rate (L/min) 2 Oxygen Delivery Method Room Air Weight: 91.399 kg Body Mass Index (BMI) 27.3 Intake and Output for Last 24 Hours 07/27/17 07/28/17 07/29/17 23:59 23:59 23:59 Intake Total 5103 / 5103 4175 / 4175 1837 / 1837 Balance 5103 / 5103 4175 / 4175 1837 / 1837 General: Alert, Oriented x3 Oral: Moist Mucosa Neck: Supple, No JVD Cardiovascular: Regular rate, Regular Rhythm, Normal S1, Normal S2 Abdomen: Bowel Sounds Present, Soft, Non Tender, Non-Distended Extremities: No edema Neurological: Cranial nerves II-XII grossly intact, Deep Tendon Reflexes 2+/4 and Symmetrical, Neuro grossly intact, Motor Exam 5/5 strength throughout Microbiology Past 72 Hours 07/29/17 10:30 Fluid - Pleural (Lung) Gram Stain - Final 07/25/17 16:37 Blood Culture (Wb) - Anticubital Right Blood Culture - Preliminary No growth in 48 hours. 07/25/17 16:37 Blood Culture (Wb) - Anticubital Left Blood Culture - Preliminary No growth in 48 hours. 07/26/17 09:00 Sputum, Expectorated/Coughed Gram Stain - Final 07/26/17 09:00 Sputum, Expectorated/Coughed Respiratory Culture - Final Presumptive C albicans Laboratory Results 07/28/17 13:07: HIV 1&2 Antibody Non-Reactive 07/28/17 15:30: MRSA (PCR) POSITIVE H 07/29/17 05:25: WBC 12.2 H, RBC 3.93 L, Hgb 11.6 L, Hct 35.7 L, MCV 90.8, MCH 29.5, MCHC 32.5, RDW 15.1 H, RDW Differential 49.7 H, Plt Count 328, MPV 10.9, Immature Gran % (Auto) 0.200, Neut % (Auto) 79.9 H, Lymph % (Auto) 9.1 L, [place] % (Auto) 9.0, Eos % (Auto) 1.6, Baso % (Auto) 0.2, Absolute Neuts (auto) 9.8 H, Absolute Lymphs (auto) 1.11, Total Counted Not Reportable 07/29/17 05:25: PT 18.0 H, INR 1.5, APTT 44.5 H 07/29/17 05:25: Lactate Dehydrogenase 157 07/29/17 10:30: Fluid Glucose 36 L*, Fluid Total Protein 4.6, Fluid LDH 1318 07/29/17 10:30: Fluid Source PLEURAL FLUID, Fluid Color YELLOW, Fluid Appearance SL CLDY, Fluid WBC 1.299, Fluid RBC 14, Fluid Tot Cell Count 1.300, Fld Polynuclear WBCs # 1.216, Fld Polynuclear WBCs % 93.6, Fluid Mononuclear WBCs 0.083, Fld Mononuclear WBCs % 6.4, Fluid Neutrophils 92, Fluid Lymphocytes 4, Fluid Monocytes 4, Fl Pathologist Comment May follow, Fluid Comment 2 SEE COMMENT 07/29/17 10:30: Miscellaneous Cytology Pending Current Medications Acetaminophen (Tylenol) 650 mg PO Q4H PRN PRN PRN Reason: FEVER Last Admin: 07/29/17 08:24 Dose: 650 mg Al Hydroxide/Mg Hydroxide (Mylanta Ii) 30 ml PO Q6H PRN PRN PRN Reason: Gastric Burning Albuterol Sulfate (Ventolin Aerosols) 2.5 mg INHALATION Q2H PRN PRN PRN Reason: WHEEZING Albuterol/Ipratropium (Duoneb) 3 ml INHALATION Q4H.RT [facility] Last Admin: 07/29/17 15:29 Dose: 3 ml Docusate Sodium (Colace) 200 mg PO BID PRN PRN PRN Reason: Constipation Fluconazole (Diflucan) 200 mg PO DAILY [facility] Last Admin: 04/05/18 10:56 Dose: 200 mg Guaifenesin (Mucinex) 1,200 mg PO BID [facility] Last Admin: 07/29/17 10:56 Dose: 1,200 mg Sodium Chloride () 1,000 mls @ 100 mls/hr IV .Q10H [facility] Last Admin: 07/29/17 10:57 Dose: 100 mls/hr Piperacillin Sod/Tazobactam Sod (Zosyn) 3.375 gm in 50 mls @ 12.5 mls/hr IV Q8 [facility] Last Admin: 07/29/17 14:14 Dose: 12.5 mls/hr Vancomycin HCl (Vancomycin) 1,000 mg in 200 mls @ 200 mls/hr IV Q8H [facility] Last Admin: 07/29/17 14:12 Dose: 200 mls/hr Nicotine (Nicoderm Cq (Pbkc)) 21 mg TRANSDERM. DAILY [facility] Last Admin: 07/29/17 10:57 Dose: 21 mg Oxycodone HCl (Oxyir) 10 mg PO Q4H PRN PRN PRN Reason: SEVERE PAIN (6-10/10) Last Admin: 07/29/17 14:24 Dose: 10 mg Sodium Chloride () 5 - 30 ml IV UD PRN PRN Reason: SALINE FLUSH Last Admin: 07/28/17 11:39 Dose: 10 ml Medical Necessity - Tobacco Use Smoking Status: Current every day smoker Assessment/Plan Active and Suspected Problems LLL CAP, multifoal (Acute) 1. Complicated pneumonia; we will continue on IV Zosyn and Vancomycin, his MRSA studies was positive . 2. Left chest pain, this has improved, l, echocardiogram did not reveal any evidence of pericarditis. . 3. Left pleural effusion status post thoracentesis. 4. Chronic Nicotine dependence; recommended to quit smoking. 5. Leukocytosis; 2/2 #1. 6. We beverley start him on Lovenox for DVT prophylaxis. Code Visit Inpatient E&M: [id number] Subs Hosp L2
--- NOTE | 2017-07-29 15:49 | PN_ITS ---
Patient Problems: Active and Suspected Problems LLL CAP, multifoal (Acute) Subjective: cc: Shortness of breath and cough Objective: He still has significant shortness of breath , he spiked a fever today he is to go down for thoracentesis by interventional radiology. Repeat CT scan revealed moderate left-sided pleural effusion with loculations, went ultrasound-guided thoracentesis today with drainage of`~ 760 mL of claude-colored fluid . Vitals/I&O's: Vital Signs Temp Pulse Resp BP Pulse Ox 98.9 F 105 H 16 126/66 H 93 07/29/17 14:06 07/29/17 14:06 07/29/17 14:06 07/29/17 14:06 07/29/17 14:06 Oxygen Flow Rate (L/min) 2 Oxygen Delivery Method Room Air Weight: 91.399 kg Body Mass Index (BMI) 27.3 Intake and Output for Last 24 Hours 07/27/17 07/28/17 07/29/17 23:59 23:59 23:59 Intake Total 5103 / 5103 4175 / 4175 1837 / 1837 Balance 5103 / 5103 4175 / 4175 1837 / 1837 General: Alert, Oriented x3 Oral: Moist Mucosa Neck: Supple, No JVD Cardiovascular: Regular rate, Regular Rhythm, Normal S1, Normal S2 Abdomen: Bowel Sounds Present, Soft, Non Tender, Non-Distended Extremities: No edema Neurological: Cranial nerves II-XII grossly intact, Deep Tendon Reflexes 2+/4 and Symmetrical, Neuro grossly intact, Motor Exam 5/5 strength throughout Microbiology Past 72 Hours 07/29/17 10:30 Fluid - Pleural (Lung) Gram Stain - Final 07/25/17 16:37 Blood Culture (Wb) - Anticubital Right Blood Culture - Preliminary No growth in 48 hours. 07/25/17 16:37 Blood Culture (Wb) - Anticubital Left Blood Culture - Preliminary No growth in 48 hours. 07/26/17 09:00 Sputum, Expectorated/Coughed Gram Stain - Final 07/26/17 09:00 Sputum, Expectorated/Coughed Respiratory Culture - Final Presumptive C albicans Laboratory Results 07/28/17 13:07: HIV 1&2 Antibody Non-Reactive 07/28/17 15:30: MRSA (PCR) POSITIVE H 07/29/17 05:25: WBC 12.2 H, RBC 3.93 L, Hgb 11.6 L, Hct 35.7 L, MCV 90.8, MCH 29.5, MCHC 32.5, RDW 15.1 H, RDW Differential 49.7 H, Plt Count 328, MPV 10.9, Immature Gran % (Auto) 0.200, Neut % (Auto) 79.9 H, Lymph % (Auto) 9.1 L, [place] % (Auto) 9.0, Eos % (Auto) 1.6, Baso % (Auto) 0.2, Absolute Neuts (auto) 9.8 H, Absolute Lymphs (auto) 1.11, Total Counted Not Reportable 07/29/17 05:25: PT 18.0 H, INR 1.5, APTT 44.5 H 07/29/17 05:25: Lactate Dehydrogenase 157 07/29/17 10:30: Fluid Glucose 36 L*, Fluid Total Protein 4.6, Fluid LDH 1318 07/29/17 10:30: Fluid Source PLEURAL FLUID, Fluid Color YELLOW, Fluid Appearance SL CLDY, Fluid WBC 1.299, Fluid RBC 14, Fluid Tot Cell Count 1.300, Fld Polynuclear WBCs # 1.216, Fld Polynuclear WBCs % 93.6, Fluid Mononuclear WBCs 0.083, Fld Mononuclear WBCs % 6.4, Fluid Neutrophils 92, Fluid Lymphocytes 4, Fluid Monocytes 4, Fl Pathologist Comment May follow, Fluid Comment 2 SEE COMMENT 07/29/17 10:30: Miscellaneous Cytology Pending Current Medications Acetaminophen (Tylenol) 650 mg PO Q4H PRN PRN PRN Reason: FEVER Last Admin: 07/29/17 08:24 Dose: 650 mg Al Hydroxide/Mg Hydroxide (Mylanta Ii) 30 ml PO Q6H PRN PRN PRN Reason: Gastric Burning Albuterol Sulfate (Ventolin Aerosols) 2.5 mg INHALATION Q2H PRN PRN PRN Reason: WHEEZING Albuterol/Ipratropium (Duoneb) 3 ml INHALATION Q4H.RT [facility] Last Admin: 07/29/17 15:29 Dose: 3 ml Docusate Sodium (Colace) 200 mg PO BID PRN PRN PRN Reason: Constipation Fluconazole (Diflucan) 200 mg PO DAILY [facility] Last Admin: 04/05/18 10:56 Dose: 200 mg Guaifenesin (Mucinex) 1,200 mg PO BID [facility] Last Admin: 07/29/17 10:56 Dose: 1,200 mg Sodium Chloride () 1,000 mls @ 100 mls/hr IV .Q10H [facility] Last Admin: 07/29/17 10:57 Dose: 100 mls/hr Piperacillin Sod/Tazobactam Sod (Zosyn) 3.375 gm in 50 mls @ 12.5 mls/hr IV Q8 [facility] Last Admin: 07/29/17 14:14 Dose: 12.5 mls/hr Vancomycin HCl (Vancomycin) 1,000 mg in 200 mls @ 200 mls/hr IV Q8H [facility] Last Admin: 07/29/17 14:12 Dose: 200 mls/hr Nicotine (Nicoderm Cq (Pbkc)) 21 mg TRANSDERM. DAILY [facility] Last Admin: 07/29/17 10:57 Dose: 21 mg Oxycodone HCl (Oxyir) 10 mg PO Q4H PRN PRN PRN Reason: SEVERE PAIN (6-10/10) Last Admin: 07/29/17 14:24 Dose: 10 mg Sodium Chloride () 5 - 30 ml IV UD PRN PRN Reason: SALINE FLUSH Last Admin: 07/28/17 11:39 Dose: 10 ml Medical Necessity - Tobacco Use Smoking Status: Current every day smoker Assessment/Plan Active and Suspected Problems LLL CAP, multifoal (Acute) 1. Complicated pneumonia; we will continue on IV Zosyn and Vancomycin, his MRSA studies was positive . 2. Left chest pain, this has improved, l, echocardiogram did not reveal any evidence of pericarditis. . 3. Left pleural effusion status post thoracentesis. 4. Chronic Nicotine dependence; recommended to quit smoking. 5. Leukocytosis; 2/2 #1. 6. We beverley start him on Lovenox for DVT prophylaxis. Code Visit Inpatient E&M: 33188 Subs Hosp L2
[2017-07-30] VITALS (12 sets, daily range): BP systolic 117–125; BP diastolic 69–77; PULSE 101–120; RESP 18–24; TEMP 36.9–37.7; O2SAT 90–97
[2017-07-30] MEDS: 0.9% Normal Saline 1,000 ML 100 ML IV ×2 (02:11→14:16)
[2017-07-30] MEDS: Ipratropium/Albuterol Sulfate 3 ML AMPUL.NEB INHALATION ×6 (02:40→22:50)
[2017-07-30 06:12] LABS: Absolute Lymphocyte Count 1.32 X10^3/ul (0.83-4.51); Absolute Neutrophil Count 6.3 X10^3/uL (2.0-7.7); Basophil# 0.02 X10^3/uL; Basophil% 0.2 % (0-1); Eosinophil# 0.25 X10^3/uL; Eosinophils% 2.8 % (0-5); Hematocrit 34.7 % (40-54); Hemoglobin 11.1 g/dl (13.0-16.5); Lymphocyte # 1.32 X10^3/ul (4.0); Mean Corpuscular Hgb 28.8 pg (27.0-32.0); Mean Corpuscular Volume 90.1 fL (80-94); Mean Platelet Vol. 10.8 fl (6.2-12.0); Monocyte# 0.91 X10^3/uL; Monocyte% 10.3 % (0-10); Neutrophil % 71.6 % (47-70); POSITIVE COUNT NO; POSITIVE DIFFERENTIAL NO; POSITIVE MORPHOLOGY NO; Platelet Count 352 K/mm3 (150-450); RBC Distribution Width CV 15.5 % (11.6-14.6); RBC Distribution Width SD 50.5 fl (35.1-43.9); Red Blood Count 3.85 M/mm3 (4.6-6.2); White Blood Count 8.8 K/mm3 (4.4-11.0)
[2017-07-30] MEDS: Piperacil/Tazobactam 3.375 GM/50 ML ML IV ×3 (06:12→23:22)
[2017-07-30] MEDS: Enoxaparin 40 MG/0.4 ML Syringe SC (06:24)
[2017-07-30 06:35] LABS: Vancomycin, Trough Level 9.9 ug/mL (5.0-15.0)
--- NOTE | 2017-07-30 07:06 | PCM.PROGNOTE ---
Patient Problems: Active and Suspected Problems LLL CAP, multifoal (Acute) Subjective: Patient did okay overnight. Patient reports significant improvement in clinical status over the last 24 hours. Patient did have a thoracentesis yesterday with removal of over 600 cc of straw-colored fluid per personal conversation with the radiologist. Patient reports some discomfort at the procedure, but significant improvement in shortness of breath following the procedure. Patient states diaphoresis is much improved compared to previous. - Physical Exam General: Alert, Oriented x3, Cooperative, No apparent distress, Well developed, Well nourished, - HEENT: Atraumatic, PERRLA, EOMI, Normocephalic, - - No scleral icterus or injection noted. Oral: Moist Mucosa, No Gingival or Mucosal Lesions/ Ulcerations Neck: Supple, No JVD, No Nodes, Trachea Midline Lungs: No rhonchi, No wheeze, No rales, Diminished - Improved air exchange, - - No scleral icterus or injection noted. Cardiovascular: Normal S1, Normal S2, No murmurs, No rub noted, No Gallop, Tachycardic Abdomen: Bowel Sounds Present, Soft, Non Tender, Non-Distended Extremities: No clubbing, No cyanosis, No edema Skin: - - No significant change compared to previous Musculoskeletal: No Tenderness to Palpation of Joints or Extremities, No Muscle Wasting Lymphatic: No Cervical, Supraclavicular, or Inguinal Adenopathy Neurological: Cranial nerves II-XII grossly intact, Neuro grossly intact, Motor Exam 5/5 strength throughout Psych/Mental Status: Alert and oriented to time, place, person, mood and affect Vital Signs Temp Pulse Resp BP Pulse Ox 36.9 C 102 H 20 H 121/77 H 95 07/30/17 02:00 07/30/17 03:00 07/30/17 02:40 07/30/17 02:00 07/30/17 02:00 Oxygen Flow Rate (L/min) 2 Oxygen Delivery Method Room Air Weight: 91.399 kg Body Mass Index (BMI) 27.3 Intake and Output for Last 24 Hours 07/28/17 07/29/17 07/30/17 23:59 23:59 23:59 Intake Total 4175 / 4175 2715 / 2715 2317 / 2317 Balance 4175 / 4175 2715 / 2715 2317 / 2317 Microbiology Past 72 Hours 07/29/17 10:30 Gram Stain - Final Fluid - Pleural (Lung) 07/25/17 16:37 Blood Culture - Preliminary Blood Culture (Wb) - Anticubital Right No growth in 48 hours. 07/25/17 16:37 Blood Culture - Preliminary Blood Culture (Wb) - Anticubital Left No growth in 48 hours. 07/26/17 09:00 Gram Stain - Final Sputum, Expectorated/Coughed Respiratory Culture - Final Presumptive C albicans Laboratory Tests Past 24 Hrs 07/29/17 07/29/17 07/29/17 10:30 10:30 10:30 WBC RBC Hgb Hct MCV MCH MCHC RDW RDW Differential Plt Count MPV Immature Gran % (Auto) Neut % (Auto) Lymph % (Auto) [place] % (Auto) Eos % (Auto) Baso % (Auto) Absolute Neuts (auto) Absolute Lymphs (auto) Total Counted Fluid Source PLEURAL FLUID Fluid Color YELLOW Fluid Appearance SL CLDY Fluid WBC 1.299 Fluid RBC 14 Fluid Tot Cell Count 1.300 Fld Polynuclear WBCs # 1.216 Fld Polynuclear WBCs % 93.6 Fluid Mononuclear WBCs 0.083 Fld Mononuclear WBCs % 6.4 Fluid Neutrophils 92 Fluid Lymphocytes 4 Fluid Monocytes 4 Fl Pathologist Comment May follow Fluid Glucose 36 L* Fluid Total Protein 4.6 Fluid LDH 1318 Fluid Comment 2 SEE COMMENT Vancomycin Trough Miscellaneous Cytology Pending 07/30/17 07/30/17 05:35 05:35 WBC 8.8 RBC 3.85 L Hgb 11.1 L Hct 34.7 L MCV 90.1 MCH 28.8 MCHC 32.0 RDW 15.5 H RDW Differential 50.5 H Plt Count 352 MPV 10.8 Immature Gran % (Auto) 0.100 Neut % (Auto) 71.6 H Lymph % (Auto) 15.0 L [place] % (Auto) 10.3 H Eos % (Auto) 2.8 Baso % (Auto) 0.2 Absolute Neuts (auto) 6.3 Absolute Lymphs (auto) 1.32 Total Counted Not Reportable Fluid Source Fluid Color Fluid Appearance Fluid WBC Fluid RBC Fluid Tot Cell Count Fld Polynuclear WBCs # Fld Polynuclear WBCs % Fluid Mononuclear WBCs Fld Mononuclear WBCs % Fluid Neutrophils Fluid Lymphocytes Fluid Monocytes Fl Pathologist Comment Fluid Glucose Fluid Total Protein Fluid LDH Fluid Comment 2 Vancomycin Trough 9.9 Miscellaneous Cytology Clinical Impression(s) from Imaging Studies Thoracentesis Ultrasound 07/29/17 05:44 IMPRESSION: Ultrasound-guided left thoracentesis. Electronically Signed: Avni Contreras MD at 11:31 EDT Tel [phone], Service support , Chest X-Ray 07/29/17 10:25 IMPRESSION: Status post left thoracentesis. There is no evidence of pneumothorax. Electronically Signed: Avni Contreras MD at 11:30 EDT Tel [phone], Service support , Medical Necessity - Tobacco Use Smoking Status: Current every day smoker Assessment/Plan Active and Suspected Problems LLL CAP, multifoal (Acute) RECOMMENDATIONS: 1. Consult infectious disease 2. Continue broad-spectrum antibiotics 3. Schedule bronchodilators every 4 hours 4. Vancomycin dosing per pharmacy, likely increased dose today IMPRESSIONS: 1. Left-sided pneumonia located by parapneumonic effusion Patient's HIV screen was negative. Thoracentesis is consistent with a parapneumonic effusion. Patient's fluid reportedly was straw-colored. Unable to obtain a PH on the fluid, but glucose was low. A significant amount of fluid was removed indicating at least some communication. Unclear if patient would benefit from a cardiothoracic evaluation. Patient likely will require broad-spectrum antibiotics given failure of community-acquired antibiotics initially. Patient is MRSA positive from the nares. Will consult infectious disease for recommendations moving forward. From a pulmonary perspective, patient would benefit from outpatient pulmonary function tests following discharge. 2. Tobacco abuse Despite relatively young age, patient reportedly has been smoking approximately 1 pack over the last 18 years. COPD would be a consideration. Significant emphysematous changes were none noted on CT scan, but patient is acutely ill at this time. Patient should have complete pulmonary function test as an outpatient. We will schedule bronchodilators for now. We will not initiate steroid therapy secondary to the concern of uncovered infection. Code Visit Inpatient E&M: 35919 Subs Hosp L2
--- NOTE | 2017-07-30 07:11 | PCM.RX.CS ---
Consult Pharmacy has been consulted to manage selected antiobiotic: Vancomycin Type of Consult: Follow-up Suspected Infection: Pneumonia Labs: Sodium 139 mmol/L (136-145) 07/28/17 13:07 Potassium 4.6 mmol/L (3.5-5.1) 07/28/17 13:07 Chloride 105 mmol/L (98-107) 07/28/17 13:07 Carbon Dioxide 28.0 mmol/L (21.0-32.0) 07/28/17 13:07 Anion Gap 6 (5-15) 07/28/17 13:07 BUN 16 mg/dL (7-18) 07/28/17 13:07 Creatinine 0.87 mg/dL (0.70-1.30) 07/28/17 13:07 Est GFR (MDRD) Af Amer 130 mL/min (>60) 07/28/17 13:07 Est GFR (MDRD) Non-Af 107 mL/min (>60) 07/28/17 13:07 BUN/Creatinine Ratio 18.4 RATIO (10-20) 07/28/17 13:07 Glucose 125 mg/dL (74-106) H 07/28/17 13:07 Vancomycin Trough 9.9 ug/mL (5.0-15.0) 07/30/17 05:35 Microbiology: Microbiology 07/29/17 10:30 Fluid - Pleural (Lung) Gram Stain - Final 07/25/17 16:37 Blood Culture (Wb) - Anticubital Right Blood Culture - Preliminary No growth in 48 hours. 07/25/17 16:37 Blood Culture (Wb) - Anticubital Left Blood Culture - Preliminary No growth in 48 hours. 07/26/17 09:00 Sputum, Expectorated/Coughed Gram Stain - Final 07/26/17 09:00 Sputum, Expectorated/Coughed Respiratory Culture - Final Presumptive C albicans 07/25/17 21:15 Urine, Clean Catch Streptococcus pneumoniae Antigen (M - Final 07/25/17 21:15 Urine, Clean Catch Legionella Antigen - Final 07/25/17 19:35 Mucosa - Nasopharyngeal Influenza Types A,B Direct FA (MARIANNE) - Final Weight used for dosin kg Estimated Creatinine Clearance: 132ml/min Goal Trough: 15-20 mcg/mL Pharmacy Plan for Drug Dosing: Pt's trough level came back 07/30/17 at 9.9 (goal is 15-20). Vancomycin dose will be increased to from 1gm q8h to 1250mg q8h and trough level will be redrawn 07/31/17 at 1400. Pharmacy Service will continue to monitor and adjust dosing as required. Follow-Up Labs: Trough Vancomycin Labs to be done on [date and time ordered]: Trough level on 07/31/17 at 1400
[2017-07-30 10:18] LABS: Pathologist Comment/Body Fluid Reviewed
[2017-07-30] MEDS: proCHLORPERazine 10 MG/2 ML Vial IV (10:35)
--- NOTE | 2017-07-30 11:18 | CASEMGMT ---
Addendum entered by Rosemarie Carr 07/30/17 11:30: [facility], but there is not sufficient information to make a report at this time. MARK Perez, METAL TREATER Original Note: Pt informed physician that he uses meth. SW spoke w/pt in regard to his meth use. Pt denies that it is a problem, denies need for any type of rehab. Pt states he only uses once per week. Pt states he told the doctor the same, that he does not need any help. SW inquired about his children, as he told RN he has a 6 month old and 1 year old. Pt states the children are with his sister at present. Pt would not give SW any additional information, answering very minimal to all SW questions. No further social media project manager at this time. Pt declining all referrals. MARK Perez, METAL TREATER
--- NOTE | 2017-07-30 11:57 | PCM.HP.ID ---
Problem List (1) Methamphetamine abuse Status: Acute (2) LLL CAP, multifoal Status: Acute Reason for Consult: parapneumonic effusion Consulted by: Dr. Graham History of Present Illness: The patient is a 32 year old M with ongoing meth abuse (snorting, no IVDU per pt report) who presented with several weeks of progressive stabbing chest pain, cough with dark odell sputum, fever, and chills. Came to ED, fever to 102.9, found to have CAP, started on ceftriaxone/azithro. CXR worsened and large effusion seen, so abx changed to vanc/zosyn. Fluconazole added when sputum grew yeast. Thoracentesis done yesterday. Breathing much better, no more fever. Denies any h/o abscess or MRSA infection. Full ROS performed and neg except as noted above. - Medical History Past Medical History (Chronic Problems): Chronic Problems Nicotine dependence (Chronic) Rib contusion (Chronic) Allergies/Adverse Reactions: Allergies Fish Containing Products Allergy (Verified 07/25/17 14:44) Hives tomato [Tomato] Allergy (Verified 07/25/17 14:44) Hives naproxen Adverse Reaction (Verified 07/25/17 14:44) Nausea/Vom/Diarrhea Home Medications: Ambulatory Orders Medication Instructions Recorded NK [NK] 07/11/17 - Social History Tobacco Use: cigarettes Alcohol Use: rarely Vital Signs Temp Pulse Resp BP Pulse Ox 98.9 F 101 H 24 H 125/71 H 94 07/30/17 08:07 07/30/17 11:27 07/30/17 11:27 07/30/17 08:07 07/30/17 08:07 Oxygen Flow Rate (L/min) 2 Oxygen Delivery Method Room Air Weight: 91.399 kg Body Mass Index (BMI) 27.3 Microbiology Past 72 Hours 07/29/17 10:30 Gram Stain - Final Fluid - Pleural (Lung) Body Fluid Culture - Preliminary No growth-Final to follow 07/25/17 16:37 Blood Culture - Preliminary Blood Culture (Wb) - Anticubital Right No growth in 48 hours. 07/25/17 16:37 Blood Culture - Preliminary Blood Culture (Wb) - Anticubital Left No growth in 48 hours. 07/26/17 09:00 Gram Stain - Final Sputum, Expectorated/Coughed Respiratory Culture - Final Presumptive C albicans Laboratory Tests Past 24 Hrs 07/29/17 07/29/17 07/30/17 10:30 10:30 05:35 WBC 8.8 RBC 3.85 L Hgb 11.1 L Hct 34.7 L MCV 90.1 MCH 28.8 MCHC 32.0 RDW 15.5 H RDW Differential 50.5 H Plt Count 352 MPV 10.8 Immature Gran % (Auto) 0.100 Neut % (Auto) 71.6 H Lymph % (Auto) 15.0 L [place] % (Auto) 10.3 H Eos % (Auto) 2.8 Baso % (Auto) 0.2 Absolute Neuts (auto) 6.3 Absolute Lymphs (auto) 1.32 Total Counted Not Reportable Fluid Source PLEURAL FLUID Fluid Color YELLOW Fluid Appearance SL CLDY Fluid RBC 14 Fluid Neutrophils 92 Fluid Lymphocytes 4 Fluid Monocytes 4 Fl Pathologist Comment Reviewed Fluid Glucose 36 L* Fluid Total Protein 4.6 Fluid LDH 1318 Fluid Comment 2 SEE COMMENT Vancomycin Trough 07/30/17 05:35 WBC RBC Hgb Hct MCV MCH MCHC RDW RDW Differential Plt Count MPV Immature Gran % (Auto) Neut % (Auto) Lymph % (Auto) [place] % (Auto) Eos % (Auto) Baso % (Auto) Absolute Neuts (auto) Absolute Lymphs (auto) Total Counted Fluid Source Fluid Color Fluid Appearance Fluid RBC Fluid Neutrophils Fluid Lymphocytes Fluid Monocytes Fl Pathologist Comment Fluid Glucose Fluid Total Protein Fluid LDH Fluid Comment 2 Vancomycin Trough 9.9 - Other Studies Radiology: [] reviewed Other Studies: [] Route of nutrition/ use of supplements: [] Nutritional Intake: [] IV Site: [] [place] Catheter: [] - Physical Exam General: Alert, Oriented x3, Cooperative HEENT: Atraumatic, PERRLA, EOMI, - - multiple cracked teeth in back Neck: Supple, No Nodes Lungs: Clear to auscultation, Diminished - in L base Cardiovascular: Regular rate, Regular Rhythm, No murmurs Abdomen: Bowel Sounds Present, Soft, Non Tender, Non-Distended Extremities: No edema Skin: No rashes IV Site: Peripheral, without redness Musculoskeletal: No Tenderness to Palpation of Joints or Extremities Neurological: Cranial nerves II-XII grossly intact - Assessment/Plan Antibiotics: [] Assessment/Plan: [] Active and Suspected Problems LLL CAP, multifocal (Acute) CAP with parapneumonic effusion - s/p thorac 4/5/18. Fluid cx neg so far, no orgs seen on gram stain. Fluid did show low glucose and elevated LDH. Sputum cx 07/26 with normal tyler and 1+ growth of C.albicans. Lab unable to do MRSA pcr on pleural fluid. Concern for possible dental abscess as source of this infection, will order dental xray. Cont vanc/zosyn/fluc while fluid cx pending. If this remains neg, plan would be for discharge home on po bactrim DS bid and augmentin 875mg bid for ten more days of therapy. (If yeast is seen, would have him also add fluconazole 200mg po qday.) Course may need to be adjusted based on clinical progress. Meth abuse - hiv here was neg. Denies any IVDU. Counseled him about quitting. Thank you, will follow, d/w foster care case manager and Dr. Graham.
--- NOTE | 2017-07-30 12:15 | RAD_ITS ---
STUDY: X-RAY - MANDIBLE (COMPLETE) REASON FOR EXAM: Male, 32 years old. History of infection. TECHNIQUE: 4 view(s) of the mandible were obtained. COMPARISON: None. FINDINGS: Normal mandible. Normal visualized right temporomandibular joint. Normal visualized left temporomandibular joint. The remaining visualized osseous structures are normal. The soft tissue structures are unremarkable. RAD/Mandible Min 4 Views IMPRESSION: Normal x-ray examination of the mandible. Electronically Signed: Avni Contreras MD at 14:37 EDT Tel [phone], Service support ,
[2017-07-30] MEDS: Fluconazole 100 MG Tablet 200 MG PO (12:40)
[2017-07-30] MEDS: guaiFENesin 1,200 MG Tablet 1200 MG PO ×2 (12:40→22:16)
[2017-07-30] MEDS: oxyCODONE 5 MG Tablet 10 MG PO ×2 (12:45→20:01)
--- NOTE | 2017-07-30 13:13 | PCM.PN.HOSP ---
Patient Problems: Active and Suspected Problems LLL CAP, multifoal (Acute) Methamphetamine abuse (Acute) Subjective: CC: Shortness of breath, cough and left-sided chest pain Objective: Interval history: The patient is a 32-year-old male with history of nicotine dependency who presented to the emergency room with progressive shortness of breath and left-sided chest pain , his Chest CT scan revealed masslike opacity in the left lobe , he was was started on IV Rocephin and Zithromax for treatment of community-acquired pneumonia with no clinical improvement and persistent leukocytosis . His antibiotic was changed to IV Zosyn and vancomycin . His sputum culture also grew Alyssa and he was started on Diflucan p.o. HIV serostatus is negative. Pulmonary Medicine was consulted and a chest CT scan was repeated and demonstrated moderate left-sided pleural effusion with loculations, he underwent ultrasound-guided thoracentesis 07/28/2017 with drainage of`~ 760 mL of claude-colored fluid . ID was was consulted by pulmonary today to assist with antibiotic therapy. Vitals/I&O's: Vital Signs Temp Pulse Resp BP Pulse Ox 98.9 F 101 H 24 H 125/71 H 94 07/30/17 08:07 07/30/17 11:27 07/30/17 11:27 07/30/17 08:07 07/30/17 08:07 Oxygen Flow Rate (L/min) 2 Oxygen Delivery Method Room Air Weight: 91.399 kg Body Mass Index (BMI) 27.3 Intake and Output for Last 24 Hours 07/28/17 07/29/17 07/30/17 23:59 23:59 23:59 Intake Total 4175 / 4175 2715 / 2715 2317 / 2317 Balance 4175 / 4175 2715 / 2715 2317 / 2317 General: Alert, Oriented x3 HEENT: Atraumatic Neck: Supple Lungs: - - decrased Aeration on the left hemithorax Cardiovascular: Regular rate, Regular Rhythm, Normal S1, Normal S2 Abdomen: Bowel Sounds Present, Soft, Non Tender, Non-Distended Extremities: No edema Neurological: Cranial nerves II-XII grossly intact, Deep Tendon Reflexes 2+/4 and Symmetrical, Motor Exam 5/5 strength throughout Microbiology Past 72 Hours 07/29/17 10:30 Fluid - Pleural (Lung) Gram Stain - Final 07/29/17 10:30 Fluid - Pleural (Lung) Body Fluid Culture - Preliminary No growth-Final to follow 07/25/17 16:37 Blood Culture (Wb) - Anticubital Right Blood Culture - Preliminary No growth in 48 hours. 07/25/17 16:37 Blood Culture (Wb) - Anticubital Left Blood Culture - Preliminary No growth in 48 hours. 07/26/17 09:00 Sputum, Expectorated/Coughed Gram Stain - Final 07/26/17 09:00 Sputum, Expectorated/Coughed Respiratory Culture - Final Presumptive C albicans Laboratory Results 07/29/17 10:30: Fl Pathologist Comment Reviewed 07/30/17 05:35: WBC 8.8, RBC 3.85 L, Hgb 11.1 L, Hct 34.7 L, MCV 90.1, MCH 28.8, MCHC 32.0, RDW 15.5 H, RDW Differential 50.5 H, Plt Count 352, MPV 10.8, Immature Gran % (Auto) 0.100, Neut % (Auto) 71.6 H, Lymph % (Auto) 15.0 L, Barnes % (Auto) 10.3 H, Eos % (Auto) 2.8, Baso % (Auto) 0.2, Absolute Neuts (auto) 6.3, Absolute Lymphs (auto) 1.32, Total Counted Not Reportable 07/30/17 05:35: Vancomycin Trough 9.9 Current Medications Acetaminophen (Tylenol) 650 mg PO Q4H PRN PRN PRN Reason: FEVER Last Admin: 07/29/17 22:23 Dose: 650 mg Al Hydroxide/Mg Hydroxide (Mylanta Ii) 30 ml PO Q6H PRN PRN PRN Reason: Gastric Burning Albuterol Sulfate (Ventolin Aerosols) 2.5 mg INHALATION Q2H PRN PRN PRN Reason: WHEEZING Albuterol/Ipratropium (Duoneb) 3 ml INHALATION Q4H.RT [facility] Last Admin: 07/30/17 11:27 Dose: 3 ml Docusate Sodium (Colace) 200 mg PO BID PRN PRN PRN Reason: Constipation Fluconazole (Diflucan) 200 mg PO DAILY [facility] Last Admin: 07/30/17 12:40 Dose: 200 mg Guaifenesin (Mucinex) 1,200 mg PO BID [facility] Last Admin: 07/30/17 12:40 Dose: 1,200 mg Sodium Chloride () 1,000 mls @ 100 mls/hr IV .Q10H [facility] Last Admin: 07/30/17 02:11 Dose: 100 mls/hr Piperacillin Sod/Tazobactam Sod (Zosyn) 3.375 gm in 50 mls @ 12.5 mls/hr IV Q8 [facility] Last Admin: 07/30/17 06:12 Dose: 12.5 mls/hr Vancomycin HCl 1,250 mg/ (Sodium Chloride) 275 mls @ 183.333 mls/hr IV Q8H [facility] Nicotine (Nicoderm Cq (Pbkc)) 21 mg TRANSDERM. DAILY [facility] Last Admin: 07/30/17 12:48 Dose: Not Given Oxycodone HCl (Oxyir) 10 mg PO Q4H PRN PRN PRN Reason: SEVERE PAIN (6-10/10) Last Admin: 07/30/17 12:45 Dose: 10 mg Sodium Chloride () 5 - 30 ml IV UD PRN PRN Reason: SALINE FLUSH Last Admin: 07/28/17 11:39 Dose: 10 ml Medical Necessity - Tobacco Use Smoking Status: Current every day smoker Assessment/Plan Active and Suspected Problems LLL CAP, multifoal (Acute) Methamphetamine abuse (Acute) 1. Complicated pneumonia; we will continue on IV Zosyn and Vancomycin, his MRSA nasal screen is positive . He is also on p.o. Diflucan for Alyssa growing from sputum. 2. Pleuritic type Left chest pain due to #1, this has improved. 3. Left pleural effusion status post thoracentesis, cultures pending. 4. Chronic Nicotine dependence; recommended to quit smoking. 5. Leukocytosis; 2/2 #1; improved with change of antibiotics to Zosyn and Vanco. 6. DVT prophylaxis with early ambulation and SCDs. Code Visit Inpatient E&M: 20134 Subs Hosp L2
[2017-07-30] MEDS: Acetaminophen 325 MG Tablet 650 MG PO (20:01)
[2017-07-31] VITALS (8 sets, daily range): BP systolic 105–125; BP diastolic 56–84; PULSE 103–120; RESP 16–20; TEMP 37.2–37.4; O2SAT 91–96
[2017-07-31] MEDS: oxyCODONE 5 MG Tablet 10 MG PO ×2 (00:06→08:07)
[2017-07-31] MEDS: 0.9% Normal Saline 1,000 ML 100 ML IV (00:06)
[2017-07-31] MEDS: Ipratropium/Albuterol Sulfate 3 ML AMPUL.NEB INHALATION ×3 (03:01→11:33)
[2017-07-31] MEDS: Piperacil/Tazobactam 3.375 GM/50 ML ML IV (05:04)
--- NOTE | 2017-07-31 07:55 | PCM.PROGNOTE ---
Patient Problems: Active and Suspected Problems LLL CAP, multifoal (Acute) Methamphetamine abuse (Acute) Subjective: Patient did well overnight. No acute issues were reported. Patient feels subjectively improved compared to previous. Still reporting pleuritic type chest pain, but overall feels close to baseline. No productive cough is reported. Objective: Mandibular x-ray was read as normal. - Physical Exam General: Alert, Oriented x3, Cooperative, No apparent distress, - - Speaking in full sentences. HEENT: Atraumatic, PERRLA, EOMI, Normocephalic, - - No scleral icterus or injection noted Oral: Moist Mucosa, No Gingival or Mucosal Lesions/ Ulcerations Neck: Supple, No JVD, No Nodes, Trachea Midline Lungs: No rhonchi, No wheeze, No rales, Diminished - Left greater than right, - - Metric expansion. No dullness to percussion. Cardiovascular: Normal S1, Normal S2, No murmurs, No rub noted, No Gallop, Tachycardic Abdomen: Bowel Sounds Present, Soft, Non Tender, Non-Distended Extremities: No clubbing, No cyanosis, No edema, Capillary Refill Less than 3 Seconds Skin: No rashes, No breakdown, - - Multiple tattoos Musculoskeletal: No Tenderness to Palpation of Joints or Extremities Lymphatic: No Cervical, Supraclavicular, or Inguinal Adenopathy Neurological: Cranial nerves II-XII grossly intact, Neuro grossly intact, Motor Exam 5/5 strength throughout Psych/Mental Status: Alert and oriented to time, place, person, mood and affect Vital Signs Temp Pulse Resp BP Pulse Ox 37.2 C 113 H 20 H 125/56 H 96 07/31/17 07:52 07/31/17 07:52 07/31/17 07:52 07/31/17 07:52 07/31/17 07:52 Oxygen Flow Rate (L/min) 2 Oxygen Delivery Method Room Air Weight: 91.399 kg Body Mass Index (BMI) 27.3 Intake and Output for Last 24 Hours 07/29/17 07/30/17 07/31/17 23:59 23:59 23:59 Intake Total 6905 / 2715 6107 / 6107 312 / 312 Balance 2715 / 2715 6107 / 6107 312 / 312 Microbiology Past 72 Hours 07/25/17 16:37 Blood Culture - Final Blood Culture (Wb) - Anticubital Right No growth in 5 days. 07/25/17 16:37 Blood Culture - Final Blood Culture (Wb) - Anticubital Left No growth in 5 days. 07/29/17 10:30 Gram Stain - Final Fluid - Pleural (Lung) Body Fluid Culture - Preliminary No growth-Final to follow 07/26/17 09:00 Gram Stain - Final Sputum, Expectorated/Coughed Respiratory Culture - Final Presumptive C albicans Laboratory Tests Past 24 Hrs 07/29/17 10:30 Fl Pathologist Comment Reviewed Clinical Impression(s) from Imaging Studies Mandible X-Ray 07/30/17 12:15 IMPRESSION: Normal x-ray examination of the mandible. Electronically Signed: Avni Contreras MD at 14:37 EDT Tel [phone], Service support , Medical Necessity - Tobacco Use Smoking Status: Current every day smoker Assessment/Plan Active and Suspected Problems LLL CAP, multifoal (Acute) Methamphetamine abuse (Acute) RECOMMENDATIONS: 1. Discontinue maintenance fluids 2. Defer to infectious disease on antibiotic plan 3. Schedule bronchodilators every 4 hours 4. Outpatient follow-up with pulmonary nurse practitioner in 2 weeks with PA/lateral chest x-ray prior to visit 5. Okay to discharge from a pulmonary perspective IMPRESSIONS: 1. Left-sided pneumonia located by parapneumonic effusion Patient's fluid culture is negative. Patient did have significant decrease in glucose noted. Stressed to the patient the importance of compliance with antibiotic therapy. Patient understands that a complete course will be necessary. Patient is to call if he has any complications. Pleuritic chest pain was explained. Patient should have a PA and lateral chest x-ray prior to follow-up in 2 weeks. This will allow for evaluation for reaccumulation of the loculated effusion. This is not anticipated to be normal at that time. Patient will need outpatient complete pulmonary function tests and a repeat chest x-ray likely in 2-3 months to ensure complete resolution. 2. Tobacco abuse Despite relatively young age, patient reportedly has been smoking approximately 1 pack over the last 18 years. COPD would be a consideration. No significant emphysematous changes were noted on CT scan, but patient is acutely ill and had significant compressive atelectasis secondary to loculated effusion. Patient should have complete pulmonary function test as an outpatient. Discharge home with a as needed albuterol would not be unreasonable. Code Visit Inpatient E&M: 91294 Subs Hosp L2
--- NOTE | 2017-07-31 08:01 | PN_ITS ---
Patient Problems: Active and Suspected Problems LLL CAP, multifoal (Acute) Methamphetamine abuse (Acute) Subjective: Patient did well overnight. No acute issues were reported. Patient feels subjectively improved compared to previous. Still reporting pleuritic type chest pain, but overall feels close to baseline. No productive cough is reported. Objective: Mandibular x-ray was read as normal. - Physical Exam General: Alert, Oriented x3, Cooperative, No apparent distress, - - Speaking in full sentences. HEENT: Atraumatic, PERRLA, EOMI, Normocephalic, - - No scleral icterus or injection noted Oral: Moist Mucosa, No Gingival or Mucosal Lesions/ Ulcerations Neck: Supple, No JVD, No Nodes, Trachea Midline Lungs: No rhonchi, No wheeze, No rales, Diminished - Left greater than right, - - Metric expansion. No dullness to percussion. Cardiovascular: Normal S1, Normal S2, No murmurs, No rub noted, No Gallop, Tachycardic Abdomen: Bowel Sounds Present, Soft, Non Tender, Non-Distended Extremities: No clubbing, No cyanosis, No edema, Capillary Refill Less than 3 Seconds Skin: No rashes, No breakdown, - - Multiple tattoos Musculoskeletal: No Tenderness to Palpation of Joints or Extremities Lymphatic: No Cervical, Supraclavicular, or Inguinal Adenopathy Neurological: Cranial nerves II-XII grossly intact, Neuro grossly intact, Motor Exam 5/5 strength throughout Psych/Mental Status: Alert and oriented to time, place, person, mood and affect Vital Signs Temp Pulse Resp BP Pulse Ox 37.2 C 113 H 20 H 125/56 H 96 07/31/17 07:52 07/31/17 07:52 07/31/17 07:52 07/31/17 07:52 07/31/17 07:52 Oxygen Flow Rate (L/min) 2 Oxygen Delivery Method Room Air Weight: 91.399 kg Body Mass Index (BMI) 27.3 Intake and Output for Last 24 Hours 07/29/17 07/30/17 07/31/17 23:59 23:59 23:59 Intake Total 6755 / 2715 6107 / 6107 312 / 312 Balance 2715 / 2715 6107 / 6107 312 / 312 Microbiology Past 72 Hours 07/25/17 16:37 Blood Culture - Final Blood Culture (Wb) - Anticubital Right No growth in 5 days. 07/25/17 16:37 Blood Culture - Final Blood Culture (Wb) - Anticubital Left No growth in 5 days. 07/29/17 10:30 Gram Stain - Final Fluid - Pleural (Lung) Body Fluid Culture - Preliminary No growth-Final to follow 07/26/17 09:00 Gram Stain - Final Sputum, Expectorated/Coughed Respiratory Culture - Final Presumptive C albicans Laboratory Tests Past 24 Hrs 07/29/17 10:30 Fl Pathologist Comment Reviewed Clinical Impression(s) from Imaging Studies Mandible X-Ray 07/30/17 12:15 IMPRESSION: Normal x-ray examination of the mandible. Electronically Signed: Avni Contreras MD at 14:37 EDT Tel [phone], Service support , Medical Necessity - Tobacco Use Smoking Status: Current every day smoker Assessment/Plan Active and Suspected Problems LLL CAP, multifoal (Acute) Methamphetamine abuse (Acute) RECOMMENDATIONS: 1. Discontinue maintenance fluids 2. Defer to infectious disease on antibiotic plan 3. Schedule bronchodilators every 4 hours 4. Outpatient follow-up with pulmonary nurse practitioner in 2 weeks with PA /lateral chest x-ray prior to visit 5. Okay to discharge from a pulmonary perspective IMPRESSIONS: 1. Left-sided pneumonia located by parapneumonic effusion Patient's fluid culture is negative. Patient did have significant decrease in glucose noted. Stressed to the patient the importance of compliance with antibiotic therapy. Patient understands that a complete course will be necessary. Patient is to call if he has any complications. Pleuritic chest pain was explained. Patient should have a PA and lateral chest x-ray prior to follow-up in 2 weeks. This will allow for evaluation for reaccumulation of the loculated effusion. This is not anticipated to be normal at that time. Patient will need outpatient complete pulmonary function tests and a repeat chest x-ray likely in 2-3 months to ensure complete resolution. 2. Tobacco abuse Despite relatively young age, patient reportedly has been smoking approximately 1 pack over the last 18 years. COPD would be a consideration. No significant emphysematous changes were noted on CT scan, but patient is acutely ill and had significant compressive atelectasis secondary to loculated effusion. Patient should have complete pulmonary function test as an outpatient. Discharge home with a as needed albuterol would not be unreasonable. Code Visit Inpatient E&M: 18869 Subs Hosp L2
--- NOTE | 2017-07-31 09:44 | PCM.PN.HOSP ---
Patient Problems: Active and Suspected Problems LLL CAP, multifoal (Acute) Methamphetamine abuse (Acute) Subjective: Patient is a 32-year-old male with a history of nicotine dependence was admitted with worsening shortness of breath and left-sided chest pain. Chest CT revealed masslike opacity in the left lobe and was started on IV prednisone and azithromycin for treatment of community-acquired pneumonia. However patient did not improve and had persistent leukocytosis. Antibiotics were escalated to IV vancomycin and Zosyn. He was also started on Diflucan on account of sputum culture growing Alyssa. Repeat chest CT showed moderate left-sided pleural effusion with loculations. Pulmonary medicine was consulted and he had ultrasound-guided thoracocentesis on 07/28/2017 with drainage of approximately 760 mL's of claude colored fluid. He has remained stable. ID is on board to help with antibiotic therapy. Patient seen and examined this morning. He complains of mild chest pain when he coughs or breathes in and out. He denies any fever, chills, shortness of breath, abdominal pain, diarrhea vomiting. Review of systems otherwise negative. Vitals/I&O's: Vital Signs Temp Pulse Resp BP Pulse Ox 99.0 F 120 H 20 H 125/56 H 96 07/31/17 07:52 07/31/17 08:14 07/31/17 07:52 07/31/17 07:52 07/31/17 07:52 Oxygen Flow Rate (L/min) 2 Oxygen Delivery Method Room Air Weight: 201 lb 8.005 oz Body Mass Index (BMI) 27.3 Intake and Output for Last 24 Hours 07/29/17 07/30/17 07/31/17 23:59 23:59 23:59 Intake Total 5675 / 2715 6107 / 6107 312 / 312 Balance 2715 / 2715 6107 / 6107 312 / 312 General: Alert, Oriented x3, Cooperative, No apparent distress HEENT: Atraumatic, PERRLA, EOMI, Normocephalic Oral: Moist Mucosa Neck: Supple, No JVD, Negative Carotid Bruits Lungs: - - Decreased breath sounds in left lower lung weinberg with few crackles. Also has decreased vocal fremitus and left lower lung weinberg. Cardiovascular: Regular rate, Regular Rhythm, Normal S1, Normal S2, No murmurs Abdomen: Bowel Sounds Present, Soft, Non Tender, Non-Distended, No Hepato-splenomegaly Extremities: No clubbing, No cyanosis, No edema, Capillary Refill Less than 3 Seconds Skin: - - Total status. Small dressing over site of thoracocentesis over left lung posteriorly. Musculoskeletal: No Tenderness to Palpation of Joints or Extremities Lymphatic: No Cervical, Supraclavicular, or Inguinal Adenopathy Neurological: Cranial nerves II-XII grossly intact, Neuro grossly intact, Motor Exam 5/5 strength throughout Psych/Mental Status: Normal Affect, Appropriate, Alert and oriented to time, place, person, mood and affect Microbiology Past 72 Hours 07/29/17 10:30 Fluid - Pleural (Lung) Gram Stain - Final 07/29/17 10:30 Fluid - Pleural (Lung) Body Fluid Culture - Preliminary No growth-Final to follow 07/29/17 10:30 Fluid - Pleural (Lung) Anaerobic Culture - Preliminary No growth in 48 hours. 07/25/17 16:37 Blood Culture (Wb) - Anticubital Right Blood Culture - Final No growth in 5 days. 07/25/17 16:37 Blood Culture (Wb) - Anticubital Left Blood Culture - Final No growth in 5 days. 07/26/17 09:00 Sputum, Expectorated/Coughed Gram Stain - Final 07/26/17 09:00 Sputum, Expectorated/Coughed Respiratory Culture - Final Presumptive C albicans Laboratory Results 07/29/17 10:30: Fl Pathologist Comment Reviewed Current Medications Acetaminophen (Tylenol) 650 mg PO Q4H PRN PRN PRN Reason: FEVER Last Admin: 07/30/17 20:01 Dose: 650 mg Al Hydroxide/Mg Hydroxide (Mylanta Ii) 30 ml PO Q6H PRN PRN PRN Reason: Gastric Burning Albuterol Sulfate (Ventolin Aerosols) 2.5 mg INHALATION Q2H PRN PRN PRN Reason: WHEEZING Albuterol/Ipratropium (Duoneb) 3 ml INHALATION Q4H.RT [facility] Last Admin: 07/31/17 07:01 Dose: 3 ml Docusate Sodium (Colace) 200 mg PO BID PRN PRN PRN Reason: Constipation Fluconazole (Diflucan) 200 mg PO DAILY [facility] Last Admin: 07/30/17 12:40 Dose: 200 mg Guaifenesin (Mucinex) 1,200 mg PO BID [facility] Last Admin: 07/30/17 22:16 Dose: 1,200 mg Piperacillin Sod/Tazobactam Sod (Zosyn) 3.375 gm in 50 mls @ 12.5 mls/hr IV Q8 [facility] Last Admin: 07/31/17 05:04 Dose: 12.5 mls/hr Vancomycin HCl 1,250 mg/ (Sodium Chloride) 275 mls @ 183.333 mls/hr IV Q8H [facility] Last Admin: 07/31/17 05:04 Dose: 183.333 mls/hr Nicotine (Nicoderm Cq (Pbkc)) 21 mg TRANSDERM. DAILY [facility] Last Admin: 07/30/17 12:48 Dose: Not Given Oxycodone HCl (Oxyir) 10 mg PO Q4H PRN PRN PRN Reason: SEVERE PAIN (6-1010) Last Admin: 07/31/17 08:07 Dose: 10 mg Sodium Chloride () 5 - 30 ml IV UD PRN PRN Reason: SALINE FLUSH Last Admin: 07/28/17 11:39 Dose: 10 ml Medical Necessity - Tobacco Use Smoking Status: Current every day smoker Assessment/Plan Active and Suspected Problems LLL CAP, multifoal (Acute) Methamphetamine abuse (Acute) 1. Left lower lobe pneumonia complicated by a parapneumonic effusion Is much better today. Only has mild pain left lower chest with coughing or breathing in and out which he says is much better. Currently on IV vancomycin and Zosyn. Thoracocentesis with drainage of approximately 760 ML's of claude colored fluid on 07/29/2017. Blood cultures have been negative with no organisms seen on Gram stain. Fluid showed low glucose and elevated LDH. Unable to assess if it is an exudative transudate because BMP was not done at the same time as thoracocentesis was done. Sputum cultures grew Alyssa albicans +1. X-ray of mandible done due to suspicion for dental abscess was negative and showed normal mandible. Currently on IV vancomycin and IV Zosyn. To home today on p.o. Bactrim double strength twice daily and p.o. Augmentin 875 mg twice daily for 10 days. Will up with lacquer machine feeder for follow-up x-ray in 1 week and told to follow-up with ID. 2. Persistent tachycardia: Patient has been persistently tachycardic since admission with heart rate ranging between 110s and 120. Heart rate is 120 today. Will check EKG and check TSH. Echo done during this admission showed normal left ventricular systolic pressure with estimated EF of 60% and mild diastolic function. 2+ tricuspid valve insufficiency with pulmonary artery systolic pressure 52 mmHg. EKG done on admission showed normal sinus rhythm rhythm with HR of 92bpm. 3. Chronic nicotine dependence: counselled to quit. 4. DVT prophylaxis: Was on Lovenox which was DC'd because of breath and ceases. Currently on PCD's. Disposition: DC home today. Code Visit Inpatient E&M: 57899 Subs Hosp L2
--- NOTE | 2017-07-31 09:52 | PN_ITS ---
Patient Problems: Active and Suspected Problems LLL CAP, multifoal (Acute) Methamphetamine abuse (Acute) Subjective: Patient is a 32-year-old male with a history of nicotine dependence was admitted with worsening shortness of breath and left-sided chest pain. Chest CT revealed masslike opacity in the left lobe and was started on IV prednisone and azithromycin for treatment of community-acquired pneumonia. However patient did not improve and had persistent leukocytosis. Antibiotics were escalated to IV vancomycin and Zosyn. He was also started on Diflucan on account of sputum culture growing Alyssa. Repeat chest CT showed moderate left -sided pleural effusion with loculations. Pulmonary medicine was consulted and he had ultrasound-guided thoracocentesis on 07/28/2017 with drainage of approximately 760 mL's of claude colored fluid. He has remained stable. ID is on board to help with antibiotic therapy. Patient seen and examined this morning. He complains of mild chest pain when he coughs or breathes in and out. He denies any fever, chills, shortness of breath, abdominal pain, diarrhea vomiting. Review of systems otherwise negative. Vitals/I&O's: Vital Signs Temp Pulse Resp BP Pulse Ox 99.0 F 120 H 20 H 125/56 H 96 07/31/17 07:52 07/31/17 08:14 07/31/17 07:52 07/31/17 07:52 07/31/17 07:52 Oxygen Flow Rate (L/min) 2 Oxygen Delivery Method Room Air Weight: 201 lb 8.005 oz Body Mass Index (BMI) 27.3 Intake and Output for Last 24 Hours 07/29/17 07/30/17 07/31/17 23:59 23:59 23:59 Intake Total 3225 / 2715 6107 / 6107 312 / 312 Balance 2715 / 2715 6107 / 6107 312 / 312 General: Alert, Oriented x3, Cooperative, No apparent distress HEENT: Atraumatic, PERRLA, EOMI, Normocephalic Oral: Moist Mucosa Neck: Supple, No JVD, Negative Carotid Bruits Lungs: - - Decreased breath sounds in left lower lung weinberg with few crackles. Also has decreased vocal fremitus and left lower lung weinberg. Cardiovascular: Regular rate, Regular Rhythm, Normal S1, Normal S2, No murmurs Abdomen: Bowel Sounds Present, Soft, Non Tender, Non-Distended, No Hepato- splenomegaly Extremities: No clubbing, No cyanosis, No edema, Capillary Refill Less than 3 Seconds Skin: - - Total status. Small dressing over site of thoracocentesis over left lung posteriorly. Musculoskeletal: No Tenderness to Palpation of Joints or Extremities Lymphatic: No Cervical, Supraclavicular, or Inguinal Adenopathy Neurological: Cranial nerves II-XII grossly intact, Neuro grossly intact, Motor Exam 5/5 strength throughout Psych/Mental Status: Normal Affect, Appropriate, Alert and oriented to time, place, person, mood and affect Microbiology Past 72 Hours 07/29/17 10:30 Fluid - Pleural (Lung) Gram Stain - Final 07/29/17 10:30 Fluid - Pleural (Lung) Body Fluid Culture - Preliminary No growth-Final to follow 07/29/17 10:30 Fluid - Pleural (Lung) Anaerobic Culture - Preliminary No growth in 48 hours. 07/25/17 16:37 Blood Culture (Wb) - Anticubital Right Blood Culture - Final No growth in 5 days. 07/25/17 16:37 Blood Culture (Wb) - Anticubital Left Blood Culture - Final No growth in 5 days. 07/26/17 09:00 Sputum, Expectorated/Coughed Gram Stain - Final 07/26/17 09:00 Sputum, Expectorated/Coughed Respiratory Culture - Final Presumptive C albicans Laboratory Results 07/29/17 10:30: Fl Pathologist Comment Reviewed Current Medications Acetaminophen (Tylenol) 650 mg PO Q4H PRN PRN PRN Reason: FEVER Last Admin: 07/30/17 20:01 Dose: 650 mg Al Hydroxide/Mg Hydroxide (Mylanta Ii) 30 ml PO Q6H PRN PRN PRN Reason: Gastric Burning Albuterol Sulfate (Ventolin Aerosols) 2.5 mg INHALATION Q2H PRN PRN PRN Reason: WHEEZING Albuterol/Ipratropium (Duoneb) 3 ml INHALATION Q4H.RT [facility] Last Admin: 07/31/17 07:01 Dose: 3 ml Docusate Sodium (Colace) 200 mg PO BID PRN PRN PRN Reason: Constipation Fluconazole (Diflucan) 200 mg PO DAILY [facility] Last Admin: 07/30/17 12:40 Dose: 200 mg Guaifenesin (Mucinex) 1,200 mg PO BID [facility] Last Admin: 07/30/17 22:16 Dose: 1,200 mg Piperacillin Sod/Tazobactam Sod (Zosyn) 3.375 gm in 50 mls @ 12.5 mls/hr IV Q8 [facility] Last Admin: 07/31/17 05:04 Dose: 12.5 mls/hr Vancomycin HCl 1,250 mg/ (Sodium Chloride) 275 mls @ 183.333 mls/hr IV Q8H [facility] Last Admin: 07/31/17 05:04 Dose: 183.333 mls/hr Nicotine (Nicoderm Cq (Pbkc)) 21 mg TRANSDERM. DAILY [facility] Last Admin: 07/30/17 12:48 Dose: Not Given Oxycodone HCl (Oxyir) 10 mg PO Q4H PRN PRN PRN Reason: SEVERE PAIN (6-02/02) Last Admin: 07/31/17 08:07 Dose: 10 mg Sodium Chloride () 5 - 30 ml IV UD PRN PRN Reason: SALINE FLUSH Last Admin: 07/28/17 11:39 Dose: 10 ml Medical Necessity - Tobacco Use Smoking Status: Current every day smoker Assessment/Plan Active and Suspected Problems LLL CAP, multifoal (Acute) Methamphetamine abuse (Acute) 1. Left lower lobe pneumonia complicated by a parapneumonic effusion * Is much better today. Only has mild pain left lower chest with coughing or breathing in and out which he says is much better. * Currently on IV vancomycin and Zosyn. Thoracocentesis with drainage of approximately 760 ML's of claude colored fluid on 07/29/2017. Blood cultures have been negative with no organisms seen on Gram stain. Fluid showed low glucose and elevated LDH. Unable to assess if it is an exudative transudate because BMP was not done at the same time as thoracocentesis was done. Sputum cultures grew Alyssa albicans +1. * X-ray of mandible done due to suspicion for dental abscess was negative and showed normal mandible. * Currently on IV vancomycin and IV Zosyn. * To home today on p.o. Bactrim double strength twice daily and p.o. Augmentin 875 mg twice daily for 10 days. * Will up with leather production artisan for follow-up x-ray in 1 week and told to follow- up with ID. * 2. Persistent tachycardia: Patient has been persistently tachycardic since admission with heart rate ranging between 110s and 120. Heart rate is 120 today. Will check EKG and check TSH. Echo done during this admission showed normal left ventricular systolic pressure with estimated EF of 60% and mild diastolic function. 2+ tricuspid valve insufficiency with pulmonary artery systolic pressure 52 mmHg. EKG done on admission showed normal sinus rhythm rhythm with HR of 92bpm. 3. Chronic nicotine dependence: counselled to quit. 4. DVT prophylaxis: Was on Lovenox which was DC'd because of breath and ceases. Currently on PCD's. Disposition: DC home today. Code Visit Inpatient E&M: 64449 Subs Hosp L2
--- NOTE | 2017-07-31 10:00 | EKG12_ITS ---
Test Reason : DYSRHYTHMIA Blood Pressure : / mmHG Vent. Rate : 103 BPM Atrial Rate : 103 BPM P-R Int : 140 ms QRS Dur : 084 ms QT Int : 336 ms P-R-T Axes : 055 062 040 degrees QTc Int : 440 ms Sinus tachycardia Otherwise normal ECG When compared with ECG of 26-JUL-2017 13:52, MANUAL COMPARISON REQUIRED, DATA IS UNCONFIRMED Confirmed by АННА BAHENA, LUCRECIA ([id number]), deputy editor in chief CABRERA CRAVEN ([id number]) on 08/10/2017 3:28:45 PM Referred By: SEDRICK Confirmed By:LUCRECIA JJ MD
[2017-07-31] MEDS: guaiFENesin 1,200 MG Tablet 1200 MG PO (10:55)
[2017-07-31] MEDS: Fluconazole 100 MG Tablet 200 MG PO (10:55)
[2017-07-31 10:58] LABS: Thyroid Stim Hormone (TSH) 1.29 uIU/mL (0.358-3.74)
--- NOTE | 2017-07-31 13:18 | PCM.DC ---
- Discharge Diagnoses Current Active Problems: Current Active and Chronic Problems LLL CAP, multifoal (Acute) Nicotine dependence (Chronic) Methamphetamine abuse (Acute) You will use the following diet at home:: No restrictions Your food should be the consistency of: Regular Your liquids should be the consistency of: Regular/Thin Discharge Activity: Return to Normal Activity May resume sexual activity in: No Restrictions Weight Bearing Status: Weight bearing as tolerated Call your doctor if you observe: Fever of 101 or Higher, Shortness of breath Instructions: Pneumonia Treatment, Discharge Instructions for Pneumonia Additional Instructions: please do a PA/lateral chest xray in 2 weeks. TO have outpatient pulmary functin test and repeat chest xray in 3 months. Allergies/Adverse Reactions: Allergies Fish Containing Products Allergy (Verified 07/25/17 14:44) Hives tomato [Tomato] Allergy (Verified 07/25/17 14:44) Hives naproxen Adverse Reaction (Verified 07/25/17 14:44) Nausea/Vom/Diarrhea Medications to take at Discharge Amoxicillin/Potassium Clav [Augmentin 875-125 Tablet] 1 ea PO BID #20 tab 07/31/17 Smz/Tmp Ds [Bactrim Ds] 1 tab PO BID #20 tab 07/31/17 The following prescriptions were given: Amoxicillin/Potassium Clav [Augmentin 875-125 Tablet] 1 ea PO BID #20 tab Smz/Tmp Ds [Bactrim Ds] 1 tab PO BID #20 tab Primary Care Physician: Care Physician,No Primary [Primary Care Provider] - Belkis Callahan MD [STAFF PHYSICIAN] - Please follow up with your Primary Care Physician in: two weeks Please Follow Up With: Taz Graham MD When: two weeks Proposed Discharge Date: 07/31/17
--- NOTE | 2017-07-31 13:23 | DS.PCM_ITS ---
Discharge Date and Diagnosis Date of Admission: 07/25/17 Date of Discharge: 07/31/17 - Primary Discharge Diagnosis Active and Suspected Problems LLL CAP, multifoal (Acute) Methamphetamine abuse (Acute) left parapneumonic effusion - Secondary Discharge Diagnosis Chronic Problems Nicotine dependence (Chronic) Rib contusion (Chronic) Hospital Course and Treatment pulmonary Operations: None Procedures: 2-D Echocardiogram - EF of 60% with mild diastolic function. 2+ tricuspid insufficiency with PA systolic pressure of 52mmhg., Thoracentesis Summary of Care Provided: The patient is a 32 year old M with a history of nicotine dependence was admitted with worsening shortness of breath and left-sided chest pain. Chest CT revealed masslike opacity in the left lobe and was started on IV prednisone and azithromycin for treatment of community-acquired pneumonia. However patient did not improve and had persistent leukocytosis. Antibiotics were escalated to IV vancomycin and Zosyn. He was also started on Diflucan on account of sputum culture growing Alyssa. Repeat chest CT showed moderate left -sided pleural effusion with loculations. Pulmonary medicine was consulted and he had ultrasound-guided thoracocentesis on 07/28/2017 with drainage of approximately 760 mL's of claude colored fluid. Patient remained tachycardic during admission, but had no SOB. TSH done was 1.29 and EKG showed sinus tachycardia, with HR of 113. HR had ranged in 100s-110s. He remained otherwise stable; pleural fluid cultures were negative. He was dced on 07/31/17 on PO bactrim DS 1 tab bid for 10 days,a nd PO augmentin 875mg bid x 10 days. He is to follow up with his pCP and organ assembler. He is to have CXR in 1 week and follow up with Dr Taz Graham with the results. He is also to have another follow up xray in 6 weeks, and to also have outpatient PFTs when he follows up with pulmonology. Patient has no PCP on file, so was referred to Dr David Callahan.[] Discharge Activity: Return to Normal Activity May resume sexual activity in: No Restrictions Weight Bearing Status: Weight bearing as tolerated Call your doctor if you observe: Fever of 101 or Higher, Shortness of breath Home Medications: Medications to take at Discharge Amoxicillin/Potassium Clav [Augmentin 875-125 Tablet] 1 ea PO BID #20 tab 04/07/ 18 Smz/Tmp Ds [Bactrim Ds] 1 tab PO BID #20 tab 07/31/17 Following Prescrptions Were Given to Patient: Amoxicillin/Potassium Clav [Augmentin 875-125 Tablet] 1 ea PO BID #20 tab Smz/Tmp Ds [Bactrim Ds] 1 tab PO BID #20 tab Primary Care Physician: Belkis Callahan MD [STAFF PHYSICIAN] - Care Physician,No Primary [Primary Care Provider] - Please follow up with your Primary Care Physician in: two weeks Please Follow Up With: Taz Graham MD When: two weeks Patient Instructions: Pneumonia Treatment, Discharge Instructions for Pneumonia Disposition: Home Minutes spent on discharge:: 40 Patient Condition:: Good Medical Necessity - Tobacco Use Smoking Status: Current every day smoker Meaningful Use Info Meaningful Use Diagnoses (Choose all that apply): None applicable Code Visit Inpatient E&M: 55967 Disch Hosp
== END 2017-07-31 14:09 | disposition home or self-care (01) | DRG 85 ==
LOC: ED 16:17 → MS2 17:23
PROVIDERS: Internal Medicine; Internal Medicine Critical Care Medicine; Admitting Provider Internal Medicine; Emergency Provider Emergency Medicine; Visit Provider Student in an Organized Health Care Education/Training Program
DX: J90 Pleural effusion, not elsewhere classified (principal); J18.9 Pneumonia, unspecified organism; J98.11 Atelectasis; F15.10 Other stimulant abuse, uncomplicated; I07.1 Rheumatic tricuspid insufficiency; R73.9 Hyperglycemia, unspecified; F17.210 Nicotine dependence, cigarettes, uncomplicated
CPT/HCPCS: 32555; 36415; 70110; 71045; 71046; 71250; 71275; 74177; 80048; 80053; 80202; 81002; 82945; 83036; 83605; 83615; 84157; 84443; 84484; 85025; 85610; 85730; 86703; 87040; 87070; 87075; 87205; 87449; 87641; 87804; 88108; 88305; 88313; 89050; 93005; 93306; 94640; 94667; 94668; 97802; 99285; J7030; J7040; J7050; Q9967; A4216; J2405

== ENCOUNTER 2017-08-02 19:03 | Emergency (ER) | payer MEDICAID, SELFPAY ==
[2017-08-02 19:04] VITALS: BP 102/60; PULSE 98; RESP 16; TEMP 37; O2SAT 95; BMI 26.9
--- NOTE | 2017-08-02 20:00 | ED.RN ---
PT called multiple times in triage. LWBS 1939.
== END 2017-08-02 19:35 | disposition left against medical advice (07) ==
LOC: ED 20:06
PROVIDERS: Emergency Provider Emergency Medicine
DX: R06.02 Shortness of breath (principal)
CPT/HCPCS: 99282

== ENCOUNTER 2018-07-29 23:15 | Emergency (ER) | payer SELFPAY ==
[2018-07-29 23:16] VITALS: BP 122/73; PULSE 103; RESP 16; TEMP 37.3; O2SAT 98; BMI 30.9
--- NOTE | 2018-07-29 23:34 | ED.DCSUM_ITS ---
- ER Visit Summary Date of Service: 07/29/18 Chief Complaint: Dental abscess History of Present Illness: The patient is a 33 M presents to the emergency department abscess tooth. Patient states over the past 3 days, he had worsening pain and swelling in his right lower jaw. He states that he may need appo intment with dentistry, but does not going to see him until next week. He states today, the area got worse. He denies any change in voice. He denies any trouble speaking or swallowing. He denies any fevers or chills. He is not found anything has improved his pain. Physical Examination: Exam is relatively unremarkable. Oropharynx is widely patent. Submental space is soft. Patient does have widespread dental disease. He has large cavity at the base of 230 with out fluctuance. This is point of maximum tenderness and corresponds with his facial edema. There is no evidence of Josue angina. Test Results: [] Emergency Department Course and Treatment: The patient has evidence of dental abscess with facial edema. He does not involve his submental area. The oropharynx is widely patent. Patient will be treated with Augmentin. Is given a first dose here. He is given 1 dose of analgesics and will be continued on anti-inflammatories. He will be discharged home. Treatment Plan: [] Disposition: Discharge Impression: Dental abscess of tooth 30 This note was generated with TESARO dictation software. It may contain incorrect words, spelling, and punctuation that were not noted in review of the chart prior to signing ED Disposition - Plan for ED Patient: Instructions: ED Dental Abscess Facial Cellulitis Prescriptions: Amox/Clavulanate Tablet [Augmentin Tablet] 875 mg PO Q12H #20 tab Ibuprofen [Motrin] 800 mg PO TID PRN PRN #20 tab PRN Reason: Pain Referrals: Care Physician,No Primary [Primary Care Provider] -
[2018-07-29] MEDS: Amox/Clavulanate 875 MG Tablet PO (23:43)
[2018-07-29] MEDS: HYDROcodone Bitartrate/Apap 5/325 Tablet PO (23:43)
[2018-07-29 23:47] VITALS: BP 122/73; PULSE 103; RESP 15
== END 2018-07-30 00:52 | disposition home or self-care (01) ==
LOC: ED 23:54
PROVIDERS: Emergency Provider Emergency Medicine
DX: K04.7 Periapical abscess without sinus (principal)
CPT/HCPCS: 99283

== ENCOUNTER 2019-04-06 14:27 | Emergency (ER) | payer SELFPAY ==
[2019-04-06 14:28] VITALS: BP 130/73; PULSE 81; RESP 17; TEMP 36.7; O2SAT 98; BMI 31.4
[2019-04-06] MEDS: Acetaminophen 500 MG Tablet 1000 MG PO (15:16)
[2019-04-06] MEDS: Ibuprofen 600 MG Tablet PO (15:16)
[2019-04-06] MEDS: Ondansetron ODT 4 MG Tablet PO (15:16)
--- NOTE | 2019-04-06 15:37 | ED.VIS.FLU ---
History of Present Illness Chief Complaint: Nausea/Vomiting Informant: Patient Known exposure: Yes - roommate Onset: Days Context: Gradual Onset Timing: Continuous Worsened by: Coughing Associated Symptoms: Chills, Cough, Fever, Sore throat, Sweats Chest Pain: None Narrative: Patient is a 34-year-old male with no significant past medical history presenting with flulike symptoms. He states he had a roommate that was sick with similar symptoms prior to him getting sick. Patient states he feels like . He has had associated chills, myalgias, nausea, vomiting and cough. Patient states his cough is been nonproductive and occurs in fits. He has thrown up a couple times over the last 24 hours. He denies any diarrhea but states he has had regular bowel movements and passing gas. He denies illicit abdominal pain. He denies any chest pain or difficulty breathing. Denies any rash or urinary symptoms. He has been taking Mucinex cold and flu with no significant relief of his symptoms. His last dose was earlier this morning. He does smoke cigarettes. He denies any alcohol or drug use. He denies any medical or surgical history. Past Medical History - Allergies and Home Meds Allergies/Adverse Reactions: Allergies Fish Containing Products Allergy (Verified 04/06/19 14:28) Hives tomato [Tomato] Allergy (Verified 04/06/19 14:28) Hives naproxen Adverse Reaction (Verified 04/06/19 14:28) Nausea/Vom/Diarrhea Primary Care Physician: Care Physician,No Primary [Primary Care Provider] - Past Medical History: None Surgical History: no surgical history Lives: Spouse/ Significant Other, Roommate Smoking Status: Current every day smoker - Family History Paternal Family History: Reports: No pertinent history Review of Systems General: Reports: Chills, Fever, Malaise. Denies: Sweats ENT: Reports: Rhinorrhea, Sore throat Cardiovascular: Denies: Chest pain, Palpitations Respiratory: Reports: Cough. Denies: Dyspnea, Dyspnea on exertion Gastrointestinal: Reports: Nausea, Vomiting. Denies: Abdominal pain, Diarrhea Genitourinary: Denies: Dysuria, Hematuria Musculoskeletal: Reports: Myalgias, Arthralgias. Denies: Swelling Skin: Denies: Rash Neurological: Reports: Headache. Denies: Weakness, Numbness Physical Exam Vital Signs/Narrative: Vital Signs Temp Pulse Resp BP Pulse Ox 04/06/19 14:28 98.1 F 81 17 130/73 H 98 Inital Vital Signs reviewed: Yes General: Well nourished, Well developed Head: Normocephalic, Atraumatic Eyes: Perrl, EOMI ENT: Moist mucous membranes, No rhinorrhea, TM's clear Neck: Supple, Nontender, No lymphadenopathy, - - No meningeal signs Cardiovascular: Regular rate, Regular rhythm, No murmurs Respiratory: No distress, CTA bilaterally, No Stridor. Negative for: Wheezing Abdomen: Soft, Nontender, Nondistended, Normal bowel sounds Back: Nontender, Normal Inspection Extremities: Nontender, No edema Skin: Normal color, No rash Neurological: Alert, Oriented x3, Cranial nerves II-XII grossly intact, Normal Strength, Normal Sensation Psychological: Normal affect Diagnostic/Tx/Re-eval - Medical Decision Making Patient is evaluated for 3 to 4 days of flulike symptoms. He looks like he does not feel well but appears nontoxic. He does not have any meningeal signs. He has normal vital signs. He is afebrile. Patient has clear breath sounds. He does smell heavily of tobacco smoke. He is not wheezing however. Flu swab was negative. Patient's roommate had similar symptoms that lasted for about a week. Patient is counseled that he probably has the same viral infection and this also will last for about a week. He is treated with Tylenol and Motrin as well as Zofran in the emergency room. He has improvement of his symptoms. He will be discharged home with a prescription for Zofran and Motrin. He will continue to take [id number] cold and flu medicines as needed. Patient states he needs a note since he missed his drug and alcohol program which is court mandated. This will be provided. Patient is counseled on signs and symptoms requiring return to the emergency room. Patient verbalizes agreement and understand this plan. Patient discharged home in stable and improved condition. ED Disposition - Plan for ED Patient: Disposition: Home or Assisted Living Diagnosis: URI, acute, Nausea and vomiting Instructions: VOMITING (6y-Adult), VIRAL SYNDROME (Adult) Prescriptions: Ibuprofen [Motrin] 600 mg PO Q6H PRN PRN #20 tab PRN Reason: Pain Or Fever Prescription Printed Ondansetron [Zofran Odt] 4 mg PO Q8H PRN PRN #10 tab PRN Reason: Nausea Prescription Printed Referrals: Belkis Callahan MD [STAFF PHYSICIAN] - Additional Instructions: Drink plenty of fluids. This is likely a viral illness that will last for 5 to 7 days. Take [id number] cold and flu medicine as needed for symptoms. Follow-up with your primary care doctor next week if no improvement. Return to the emergency room for worsening symptoms.
[2019-04-06 16:14] VITALS: PULSE 84; RESP 17; TEMP 36.8; O2SAT 98
== END 2019-04-06 16:18 | disposition home or self-care (01) ==
PROVIDERS: Emergency Provider Emergency Medicine
DX: J06.9 Acute upper respiratory infection, unspecified (principal); R11.2 Nausea with vomiting, unspecified; F17.210 Nicotine dependence, cigarettes, uncomplicated
CPT/HCPCS: 87804; 99283

== ENCOUNTER 2022-02-10 21:09 | Emergency (ER) | payer SELFPAY ==
[2022-02-10 21:09] VITALS: BP 128/86; PULSE 115; RESP 18; TEMP 36.6; O2SAT 96; BMI 34.5
[2022-02-10] MEDS: MethylPREDNISolone 125 MG/2 ML Vial IV (22:14)
[2022-02-10 22:18] VITALS: BP 128/86; PULSE 115; RESP 18; TEMP 36.6; O2SAT 96
[2022-02-10] MEDS: Ipratropium/Albuterol Sulfate 3 ML AMPUL.NEB INHALATION (22:19)
[2022-02-10 22:22] VITALS: PULSE 89; RESP 12
[2022-02-10 22:24] LABS: Absolute Lymphocyte Count 1.72 X10^3/uL (0.83-4.51); Absolute Neutrophil Count 3.7 X10^3/uL (2.0-7.7); Basophil# 0.06 X10^3/uL; Eosinophil# 0.17 X10^3/uL; Eosinophils% 2.7 % (0-5); Hematocrit 46.2 % (40-54); Hemoglobin 15.1 g/dL (13.0-16.5); Lymphocyte # 1.72 X10^3/ul (0.83-4.51); Lymphocyte % 27.7 % (19-41); Mean Corp Hgb Conc 32.7 g/dL (32-36); Mean Corpuscular Hgb 28.7 pg (27.0-32.0); Mean Corpuscular Volume 87.8 fL (80-94); Mean Platelet Vol. 10.1 fl (6.2-12.0); Monocyte# 0.54 X10^3/uL; Monocyte% 8.7 % (0-10); NRBC Flagged by Analyzer 0 % (0-5); Neutrophil % 59.7 % (47-70); Platelet Count 264 K/mm3 (150-450); RBC Distribution Width CV 14.3 % (11.6-14.6); RBC Distribution Width SD 46.1 fl (35.1-43.9); Red Blood Count 5.26 M/mm3 (4.6-6.2); White Blood Count 6.2 K/mm3 (4.4-11.0)
--- NOTE | 2022-02-10 22:26 | RAD_ITS ---
STUDY: X-RAY CHEST REASON FOR EXAM: Male, 37 years old. Dyspnoea TECHNIQUE: Portable, upright, AP chest radiograph COMPARISON: 07/29/2017 FINDINGS: Mild bilateral lower lung infiltrates. There is no demonstrated pleural abnormality. Normal size heart. Normal mediastinum and dana. Normal visualized pulmonary arteries. Normal visualized aortic arch and descending thoracic aorta. There is no demonstrated abnormality of the visualized soft tissue structures of the upper abdomen. RAD/Chest 1 View (Portable) IMPRESSION: Mild bilateral lower lung infiltrates. Electronically Signed: Emigdio Olivier MD at 22:46 EDT ,
[2022-02-10 22:37] LABS: D-Dimer Quantitative (DVT/PE) 0.33 FEU/ug/m (0.27-0.49)
[2022-02-10 22:38] LABS: Anion Gap 5 (5-15); BUN 14 mg/dL (7-18); BUN/Creat Ratio 14.2 RATIO (10-20); Chloride 110 mmol/L (98-107); Creatinine, Serum 0.99 mg/dL (0.70-1.30); EST Glomerular Filtration Rate 90 mL/min (>60); Est Glom Filt Rate - Afr Amer 109 mL/min (>60); Estimated Creatinine Clearance 111.04 ml/min; Glucose 122 mg/dL (74-106); Magnesium 2.5 mg/dL (1.6-2.6); Potassium 4.1 mmol/L (3.5-5.1); Sodium Level 144 mmol/L (136-145)
--- NOTE | 2022-02-10 23:06 | EDS_ITS ---
HPI History of Present Illness Chief Complaint: Shortness of Breath Narrative Narrative: Patient is a 37-year-old male with past medical history of smoking. He states for the past 5 to 7 days he has had a mild productive cough and has had steady increase in shortness of breath sensation. He denies any fevers chills or known sick contacts. He states he is not been exposed to COVID. He does report he has had pneumonia in the past and with his shortness of breath and cough he is concern for this once again and therefore comes in for evaluation. [facility] Medical History LLL CAP, multifoal Home Medications ibuprofen 600 mg tablet 600 mg PO Q6H PRN PRN Pain Or Fever #20 tabs 04/06/19 [Rx Last Taken Unknown] ondansetron 4 mg disintegrating tablet 4 mg PO Q8H PRN PRN Nausea #10 tabs 04/06/19 [Rx Last Taken Unknown] albuterol sulfate 90 mcg/actuation aerosol inhaler (Ventolin HFA) 1 - 2 puff inh alation Q4H PRN PRN Wheezing #1 device 02/10/22 [Rx Last Taken Unknown] doxycycline hyclate 100 mg capsule 100 mg PO BID 10 days #20 caps 02/10/22 [Rx Last Taken Unknown] Allergy/AdvReac Type Severity Reaction Status Date / Time Fish Containing Products Allergy Hives Verified 02/10/22 21:11 tomato [Tomato] Allergy Hives Verified 02/10/22 21:11 naproxen AdvReac Nausea/Vom/ Verified 02/10/22 21:11 Diarrhea Social History Smoking Status: Current some day smoker tobacco type: cigarettes ROS ROS ED Constitutional Constitutional ED: Denies chills or fever(s) ENT ENT ED: Reports rhinorrhea; Denies sore throat Cardiovascular Cardiovascular: Denies chest pain Respiratory/Chest Respiratory/Chest: Reports cough and dyspnea Gastrointestinal Gastrointestinal: Denies abdominal pain, diarrhea, nausea or vomiting Genitourinary Genitourinary ED: Denies dysuria Musculoskeletal Musculoskeletal: Denies myalgias Integumentary Denies rash Neurologic Neurologic: Denies headache(s) Hematologic/Lymphatic Hematologic/Lymphatic: Denies easy bleeding or easy bruising EXAM Physical Exam Const Vital Signs: 02/10/22 21:09 02/10/22 21:19 02/10/22 22:18 Temperature 98 F 98 F Temperature Source Temporal Temporal Pulse Rate 115 H 115 H Respiratory Rate 18 18 Respiratory Effort Short of Breath Respiratory Depth Normal Respiratory Pattern Normal Blood Pressure 128/86 H 128/86 H Blood Pressure Mean 100 100 Pulse Ox 96 96 Oxygen Delivery Method Room Air Room Air Room Air 02/10/22 22:22 02/10/22 23:21 Temperature Temperature Source Pulse Rate 89 108 H Respiratory Rate 12 14 Respiratory Effort Respiratory Depth Respiratory Pattern Normal Blood Pressure 116/84 H Blood Pressure Mean 94 Pulse Ox 98 Oxygen Delivery Method Room Air Positive well nourished and well developed General Appearance ED: well developed HEENT Reports moist mucous membranes HEENT Narrative: Cobblestoning the posterior pharynx consistent with sinus drainage without airway edema or compromise. No tongue or lip swelling noted Eyes PERRL and EOMs intact bilaterally Neck supple and no JVD Neck Narrative: Positive anterior cervical lymphadenopathy Resp normal respiratory effort Resp Narrative: Breath sounds are diminished throughout with faint expiratory wheeze in the bilateral bases but otherwise no nasal flaring retractions tachypnea or accessory muscle use Cardio regular rhythm Rate: tachycardic and other Other Details: Radial pulses are +2-4 bilaterally are equal and symmetric GI normal to inspection, nondistended, normoactive bowel sounds, non-tender and non-distended Auscultation: normoactive bowel sounds Palpation: soft Extremity normal to inspection Extremity Narrative: No asymmetric edema no pitting edema negative Homans' sign bilaterally Neuro oriented x3 and CN's II-XII intact bilaterally Sensorium / Orientation: alert Psych mental status grossly normal Skin no rashes or lesions noted MDM MDM MDM Narrative Medical decision making narrative: Patient arrived to the ER afebrile and satting in the high 90s on room air without acute respiratory distress. He did have faint wheeze noted on exam and with his history of pneumonia and smoking as well as reported shortness of breath I did elect to perform a basic work-up. Blood work revealed no clinically significant finding. Chest x-ray showed a faint bilateral lower lobe pneumonia. He was ambulated into the department and his pulse ox remained in the high 90s. Therefore at this time he does not have signs of respiratory distress he is not requiring supplemental oxygen and he has no signs of sepsis based on his vitals or labs and therefore can be treated on an outpatient basis. Lab Data Attestation: I reviewed the patient's lab results. Labs: Laboratory Results - last 24 hr 02/10/22 02/10/22 02/10/22 22:15 22:15 22:15 WBC 6.2 RBC 5.26 Hgb 15.1 Hct 46.2 MCV 87.8 MCH 28.7 MCHC 32.7 RDW Std Deviation 46.1 H RDW Coeff of Ammon 14.3 Plt Count 264 MPV 10.1 Immature Gran % (Auto) 0.200 Neut % (Auto) 59.7 Lymph % (Auto) 27.7 [place] % (Auto) 8.7 Eos % (Auto) 2.7 Baso % (Auto) 1.0 Absolute Neuts (auto) 3.7 Absolute Lymphs (auto) 1.72 Nucleated RBC % 0 D-Dimer Quant (PE/DVT) 0.33 Sodium 144 Potassium 4.1 Chloride 110 H Carbon Dioxide 29.0 Anion Gap 5 BUN 14 Creatinine 0.99 Estim Creat Clear Calc 111.04 Est GFR (MDRD) Af Amer 109 Est GFR (MDRD) Non-Af 90 BUN/Creatinine Ratio 14.2 Glucose 122 H Calcium 9.0 Magnesium 2.5 Radiography Diagnostic Testing: Clinical Impression(s) from Imaging Studies Chest X-Ray 02/10/22 22:26 IMPRESSION: Mild bilateral lower lung infiltrates. Electronically Signed: Emigdio Olivier MD at 22:46 EDT , Chest x-ray as interpreted by the emergency medicine physician reveals faint/mild bilateral lower lung infiltrates Discharge Plan Triage Chief Complaint: Shortness of Breath ED Provider: Constantin Ledesma Dx/Rx/DC Orders Clinical Impression: Pneumonia, Nicotine dependence Instructions: ED Pneumonia (Adult) Prescriptions: New doxycycline hyclate 100 mg capsule 100 mg PO BID 10 Days Qty: 20 0RF albuterol sulfate [Ventolin HFA] 90 mcg/actuation HFA aerosol inhaler 1 - 2 puff inhalation Q4H PRN PRN (Reason: Wheezing) Qty: 1 0RF No Action ibuprofen 600 MG tablet 600 mg PO Q6H PRN PRN (Reason: Pain Or Fever) Qty: 20 0RF ondansetron 4 MG tablet 4 mg PO Q8H PRN PRN (Reason: Nausea) Qty: 10 0RF Primary Care Provider: Care Physician,No Primary Referrals: Geoffrey Payne MD [STAFF PHYSICIAN] - Care Physician,No Primary [Primary Care Provider] - Disposition Disposition: Home, Self Care Discharge Date/Time: 02/11/22 00:07
[2022-02-10 23:21] VITALS: BP 116/84; PULSE 108; RESP 14; O2SAT 98
[2022-02-10 23:26] VITALS: O2SAT 96
[2022-02-11] MEDS: Doxycycline 100 MG CAPSULE PO (00:04)
== END 2022-02-11 00:07 | disposition home or self-care (01) ==
PROVIDERS: Emergency Provider Emergency Medicine; Visit Provider Emergency Medicine
DX: J18.9 Pneumonia, unspecified organism (principal); F17.210 Nicotine dependence, cigarettes, uncomplicated; R06.02 Shortness of breath; Z20.822 Contact with and (suspected) exposure to COVID-19
CPT/HCPCS: 71045; 80048; 83735; 85025; 85379; 87428; 94640; 96374; 99283; A4216

== ENCOUNTER 2022-02-27 09:15 | Emergency (ER) | payer SELFPAY ==
[2022-02-27 09:16] VITALS: BP 122/81; PULSE 122; RESP 18; TEMP 36.2; O2SAT 100; BMI 34.5
--- NOTE | 2022-02-27 09:23 | EKG12_ITS ---
Test Reason : CP Blood Pressure : / mmHG Vent. Rate : 108 BPM Atrial Rate : 108 BPM P-R Int : 146 ms QRS Dur : 086 ms QT Int : 340 ms P-R-T Axes : 068 044 064 degrees QTc Int : 455 ms Sinus tachycardia Otherwise normal ECG Confirmed by АННА BAHENA, LUCRECIA ([id number]), editor & co founder JAQUELIN BEATTY ([id number]) on 03/02/2022 1:20:31 PM Referred By: LUZ MARINA Confirmed By:LUCRECIA JJ MD
[2022-02-27 09:25] VITALS: BP 122/81; PULSE 122; RESP 18; TEMP 36.2; O2SAT 100; O2SAT 99
--- NOTE | 2022-02-27 09:38 | RAD_ITS ---
STUDY: X-RAY CHEST REASON FOR EXAM: Male, 37 years old. Cough and dyspnea TECHNIQUE: PA and lateral views of the chest. COMPARISON: Comparison is made with prior study dated 02/10/2022. FINDINGS: EKG electrodes are seen. The lungs are clear and expanded. There is no demonstrated pleural abnormality. Normal size heart. Normal mediastinum and dana. Normal visualized pulmonary arteries. Normal visualized aortic arch and descending thoracic aorta. Normal visualized thoracic spine. Normal visualized ribs, clavicles, and shoulders. There is no demonstrated abnormality of the visualized soft tissue structures of the upper abdomen. RAD/Chest PA and Lateral IMPRESSION: Normal x-ray examination of the chest. Electronically Signed: Avni Contreras MD at 10:10 EDT ,
--- NOTE | 2022-02-27 09:40 | EX.ED.VIS.UR ---
HPI HPI - URI History of Present Illness Chief Complaint: Shortness of Breath Informant: patient Onset/Context/Timing Onset: Weeks Context: Gradual Onset Timing: Continuous Current Severity: Mild Maximum Severity: Mild Associated Symptoms Associated Symptoms: Positive for Shortness of Breath and Nonproductive cough; Negative for Nausea, Vomiting or Hemoptysis Narrative Narrative: 37-year-old male no seen past medical history. Was seen 2 weeks ago started on doxycycline twice daily for 10 days and an inhaler. States he is done with the antibiotic. He still feels short of breath. He denies any vomiting, diarrhea or fever. No hemoptysis. On his last visit his labs and D-dimer were negative. His chest x-ray was left read as bilateral infiltrates which I reviewed but disagree with. He does smoke. Prior similar symptoms: Yes Recent Illness/Hospitalization: No ROS ROS ED ROS Narrative Cough. Shortness of breath. Review of Systems ROS Unobtainable: Denies due to encephalopathy Constitutional Constitutional ED: Denies chills or fever(s) Eyes Eyes: Denies blurry vision ENT ENT ED: Denies ear pain Cardiovascular Cardiovascular: Denies chest pain Respiratory/Chest Respiratory/Chest: Reports cough and dyspnea Gastrointestinal Gastrointestinal: Denies abdominal pain Genitourinary Genitourinary ED: Denies dysuria or hematuria Integumentary Denies abscess or Abrasions Neurologic Neurologic: Denies headache(s) Psychiatric Psychiatric: Denies anxiety or depression Endocrine Endocrinology: Denies cold intolerance Hematologic/Lymphatic Hematologic/Lymphatic: Denies easy bleeding Allergic/Immunologic Allergic/Immunologic ED: Denies mouth swelling or tongue swelling [facility] Medical History LLL CAP, multifoal Home Medications ibuprofen 600 mg tablet 600 mg PO Q6H PRN PRN Pain Or Fever #20 tabs 04/06/19 [Rx Last Taken Unknown] ondansetron 4 mg disintegrating tablet 4 mg PO Q8H PRN PRN Nausea #10 tabs 04/06/19 [Rx Last Taken Unknown] albuterol sulfate 90 mcg/actuation aerosol inhaler (Ventolin HFA) 1 - 2 puff inhalation Q4H PRN PRN Wheezing #1 device 02/10/22 [Rx Last Taken Unknown] doxycycline hyclate 100 mg capsule 100 mg PO BID 10 days #20 caps 02/10/22 [Rx Last Taken Unknown] prednisone 20 mg tablet 40 mg PO DAILY 7 days #14 tabs 02/27/22 [Rx Last Taken Unknown] Allergy/AdvReac Type Severity Reaction Status Date / Time Fish Containing Products Allergy Hives Verified 02/27/22 09:18 tomato [Tomato] Allergy Hives Verified 02/27/22 09:18 naproxen AdvReac Nausea/Vom/ Verified 02/27/22 09:18 Diarrhea Social History Smoking Status: Current every day smoker tobacco type: cigarettes EXAM Physical Exam Narrative Exam Narrative: 29-year-old male no acute distress. Vital signs stable afebrile. His pulse ox 9% on room air no signs of hypoxia. H EENT exam unremarkable. Pierced tongue. Neck nontender no lymphadenopathy. Lungs dry cough. Few scattered expiratory wheezes bilaterally. No rales or rhonchi. Equal symmetrical. Heart regular rhythm rate about 110 no murmur. Abdomen is soft and nontender. Moving all 4 extremities. Calves are nontender without edema or cords. Back nontender. Neurologically is awake and alert. Const Vital Signs: 02/27/22 09:16 02/27/22 09:25 02/27/22 09:25 Temperature 97.2 F L 97.2 F L Temperature Source Temporal Temporal Pulse Rate 122 H 122 H Respiratory Rate 18 18 Respiratory Effort Normal Non-Labored Respiratory Depth Normal Respiratory Pattern Normal Blood Pressure 122/81 H 122/81 H Blood Pressure Mean 94 94 Pulse Ox 100 100 Oxygen Delivery Method Room Air Room Air Room Air 02/27/22 09:54 Temperature Temperature Source Pulse Rate 106 H Respiratory Rate 18 Respiratory Effort Respiratory Depth Respiratory Pattern Normal Blood Pressure Blood Pressure Mean Pulse Ox Oxygen Delivery Method Positive well nourished, well developed and obese; Negative for cachectic or contractures General Appearance ED: well developed and NAD; Negative for cachectic, contractures, cyanotic, diaphoretic or pallor Nutritional Appearance: obese; Negative for cachectic HEENT Reports moist mucous membranes; Denies dry mucous membranes normocephalic and atraumatic; Negative for scalp tenderness Face and Sinus: Negative for sinus tenderness or maxillary instability Mouth ED: No dry mucous membranes Mouth: No dry mucous membranes Teeth and Gingiva: Negative for caries Throat: posterior oropharynx normal; Negative for tonsils abnormal Eyes PERRL and EOMs intact bilaterally General Eye ED: Negative for pale conjunctiva or scleral icterus Neck no lymphadenopathy, supple, no meningeal signs and no JVD General: Negative for anterior neck swelling or lymphadenopathy Resp normal respiratory effort and No clear to auscultation bilaterally Resp Narrative: Few scattered expiratory wheezes. Effort and Inspection: Negative for retractions Auscultation: wheezes; Negative for rales, rhonchi or diminished lung sounds Cardio S1 normal heart sound, S2 normal heart sound and no murmurs Rate: tachycardic; Negative for regular rate or bradycardia Rhythm: regular rhythm GI non-tender, non-distended and no masses Inspection: Negative for abdominal distention Auscultation: normoactive bowel sounds Palpation: soft; Negative for tender Percussion: Negative for other Back/Spine no CVA tenderness and normal ROM General Back: Negative for CVA tenderness Cervical Spine: Negative for cervical spine tenderness Thoracic Spine / Upper Back: Negative for thoracic spinal tenderness Lumbar Spine / Lower Back: Negative for lumbar spinal tenderness Sacrum: Negative for tenderness Extremity normal to inspection and full ROM General Extremety ED: Negative for cyanosis, tenderness or other findings General Extremity: Negative for cyanosis or other findings Neuro oriented x3 and CN's II-XII intact bilaterally Sensorium / Orientation: alert, oriented to person, oriented to place and oriented to time; Negative for orientation impaired, lethargic, stuporous or other Sensory Exam: No sensory level loss detected Motor Exam: strength 5/5 throughout; Negative for general weakness Psych mental status grossly normal Appearance: Negative for other Attitude: No agitated Mood & Affect: Negative for depressed, anxious or tearful Skin General Skin Exam: Negative for jaundice or pallor Lesions: no lesions Rashes: no rashes Trauma: Negative for abrasion or laceration MDM MDM MDM Narrative Medical decision making narrative: 37-year-old with expiratory wheezes. I reviewed his labs and chest x-ray before I think they were unremarkable. Radiologist read his chest x-ray 2 weeks ago has bilateral infiltrates. He has expiratory wheezes today. To be treated DuoNeb aerosol and 60 mg p.o. prednisone. I will obtain a second chest x-ray. Nurses had ordered an EKG. Repeat exam patient doing well at 11:39 AM. Be discharged to home. He is already treated with antibiotics. He will be placed on prednisone 40 mg a day for 7 days. Follow-up with his doctor if not improving. Radiography Diagnostic Testing: Clinical Impression(s) from Imaging Studies Chest X-Ray 02/27/22 09:38 IMPRESSION: Normal x-ray examination of the chest. Electronically Signed: Avni Contreras MD at 10:10 EDT , Chest x-ray, 2 views, AP and lateral interpreted both by myself and radiologist shows no acute abnormality. Chronic changes. Normal cardiac silhouette. Normal lungs. No infiltrates. Unchanged from prior. Rhythm Strip Rhythm Strip: Sinus Tach Rate: 108 Ectopy: None EKG Initial EKG: Attestation: I personally reviewed and interpreted this EKG as follows: Interpretation: No Acute Injury Pattern and Sinus Tachycardia Comments: Sinus tachycardia rate of 108 no acute signs of CT or ischemia. No [id number]. Discharge Plan Triage Chief Complaint: Shortness of Breath ED Provider: Hitesh Nichole Dx/Rx/DC Orders Clinical Impression: Viral syndrome, Wheezing Prescriptions: New prednisone 20 mg tablet 40 mg PO DAILY 7 Days Qty: 14 0RF No Action ibuprofen 600 MG tablet 600 mg PO Q6H PRN PRN (Reason: Pain Or Fever) Qty: 20 0RF ondansetron 4 MG tablet 4 mg PO Q8H PRN PRN (Reason: Nausea) Qty: 10 0RF doxycycline hyclate 100 mg capsule 100 mg PO BID 10 Days Qty: 20 0RF albuterol sulfate [Ventolin HFA] 90 mcg/actuation HFA aerosol inhaler 1 - 2 puff inhalation Q4H PRN PRN (Reason: Wheezing) Qty: 1 0RF Primary Care Provider: Care Physician,No Primary Referrals: Victorino Martinez MD [Med Staff - Registered Nurse Maternal Child] - 1 Week if not improving Care Physician,No Primary [Primary Care Provider] - Activity Restrictions/Additional Instructions: Your chest x-ray was normal as was your EKG. Most likely viral syndrome. Prednisone daily to decrease inflammation in your lungs and cut down on the wheezing and shortness of breath. You may use your inhaler. Currently you need no further antibiotics. Follow-up with your doctor if not improving. Absolutely stop smoking. Disposition Disposition: Home, Self Care
[2022-02-27] MEDS: Ipratropium/Albuterol Sulfate 3 ML AMPUL.NEB INHALATION (09:53)
[2022-02-27 09:54] VITALS: PULSE 106; RESP 18
[2022-02-27] MEDS: predniSONE 20 MG Tablet 60 MG PO (10:11)
--- NOTE | 2022-02-27 10:49 | CM.ED ---
XAVI Note Referral Source: Case Find Referral Reason: No Primary Care Physician (PCP) XAVI reviewed chart and noted that patient has no PCP. SW provided patient with list of [facility] Phys[facility] List for reference. Patient said that he has applied for medicaid at [facility]. SW provided patient with information on [facility]. No other issues or concerns voiced at this time. SW remains available for any additional needs. Plan: Provided patient with PCP information Nicole LEONARD
[2022-02-27 11:46] VITALS: BP 92/58; PULSE 81; O2SAT 100
== END 2022-02-27 11:46 | disposition home or self-care (01) ==
PROVIDERS: Emergency Provider Emergency Medicine; Visit Provider Emergency Medicine
DX: B34.9 Viral infection, unspecified (principal); R06.02 Shortness of breath; R06.2 Wheezing; F17.210 Nicotine dependence, cigarettes, uncomplicated
CPT/HCPCS: 71046; 93005; 94640; 99283

== ENCOUNTER 2022-03-11 00:11 | Emergency (ER) | payer SELFPAY ==
[2022-03-11 00:12] VITALS: BP 137/91; PULSE 103; RESP 17; TEMP 37.1; O2SAT 98; BMI 34.3
[2022-03-11 00:50] LABS: Absolute Neutrophil Count 5.2 X10^3/uL (2.0-7.7); Basophil# 0.06 X10^3/uL; Basophil% 0.7 % (0-1); Eosinophil# 0.23 X10^3/uL; Eosinophils% 2.9 % (0-5); Hematocrit 45.2 % (40-54); Hemoglobin 14.5 g/dL (13.0-16.5); Lymphocyte % 22.5 % (19-41); Mean Corp Hgb Conc 32.1 g/dL (32-36); Mean Corpuscular Hgb 28.7 pg (27.0-32.0); Mean Corpuscular Volume 89.3 fL (80-94); Monocyte% 8.7 % (0-10); NRBC Flagged by Analyzer 0 % (0-5); Platelet Count 282 K/mm3 (150-450); RBC Distribution Width CV 14.6 % (11.6-14.6); RBC Distribution Width SD 47.9 fl (35.1-43.9); Red Blood Count 5.06 M/mm3 (4.6-6.2)
[2022-03-11] MEDS: Ketorolac 30 MG/ML Syringe IV (01:02)
[2022-03-11] MEDS: 0.9% Normal Saline 1,000 ML 999 ML IV (01:02)
[2022-03-11] MEDS: Ondansetron 4 MG/2 ML Vial IV (01:02)
[2022-03-11] MEDS: Dicyclomine 20 MG/2 ML Vial IM (01:02)
[2022-03-11 01:09] LABS: AST(SGOT) 18 U/L (15-37); Alanine Aminotransfer ALT/SGPT 37 U/L (16-61); Albumin, Serum 3.5 g/dL (3.2-5.0); Alkaline Phosphatase 120 U/L (45-117); Anion Gap 7 (5-15); BUN 16 mg/dL (7-18); BUN/Creat Ratio 17.1 RATIO (10-20); Calcium,Total 8.7 mg/dL (8.5-10.1); Chloride 107 mmol/L (98-107); Creatinine, Serum 0.94 mg/dL (0.70-1.30); EST Glomerular Filtration Rate 96 mL/min (>60); Est Glom Filt Rate - Afr Amer 116 mL/min (>60); Estimated Creatinine Clearance 116.95 ml/min; Globulin 3.5 g/dL (2.2-4.2); Glucose 150 mg/dL (74-106); Lipase 126 U/L (73-393); Potassium 3.7 mmol/L (3.5-5.1); Sodium Level 141 mmol/L (136-145)
--- NOTE | 2022-03-11 01:54 | EX.ED.DYSGE1 ---
HPI History of Present Illness Chief Complaint: General Illness Narrative Narrative: Patient is a 37-year-old male who states that today he has subjective chills with myalgias and began with bouts of nausea and vomiting. He states has not been able to keep much food or fluid down. He denies any known sick contacts. He denies any history of ulcer colitis Crohn's disease or intestinal disorder. He states he was worried about secondary infection and/or dehydration because of his persistent symptoms throughout the day and therefore comes in for evaluation [facility] Medical History LLL CAP, multifoal Home Medications ibuprofen 600 mg tablet 600 mg PO Q6H PRN PRN Pain Or Fever #20 tabs 04/06/19 [Rx Last Taken Unknown] ondansetron 4 mg disintegrating tablet 4 mg PO Q8H PRN PRN Nausea #10 tabs 04/06/19 [Rx Last Taken Unknown] albuterol sulfate 90 mcg/actuation aerosol inhaler (Ventolin HFA) 1 - 2 puff inhalation Q4H PRN PRN Wheezing #1 device 02/10/22 [Rx Last Taken Unknown] doxycycline hyclate 100 mg capsule 100 mg PO BID 10 days #20 caps 02/10/22 [Rx Last Taken Unknown] prednisone 20 mg tablet 40 mg PO DAILY 7 days #14 tabs 02/27/22 [Rx Last Taken Unknown] dicyclomine 20 mg tablet 20 mg PO 4X/DAY PRN PRN Abdominal pain/spasm #28 tabs 03/11/22 [Rx Last Taken Unknown] ondansetron 4 mg disintegrating tablet 4 mg PO TID PRN nausea and vomiting #21 tabs 03/11/22 [Rx Last Taken Unknown] Allergy/AdvReac Type Severity Reaction Status Date / Time Fish Containing Products Allergy Hives Verified 03/11/22 00:18 tomato [Tomato] Allergy Hives Verified 03/11/22 00:18 naproxen AdvReac Nausea/Vom/ Verified 03/11/22 00:18 Diarrhea Social History Smoking Status: Current every day smoker tobacco type: cigarettes ROS ROS ED Constitutional Constitutional ED: Reports chills and subjective; Denies fever(s) ENT ENT ED: Denies sore throat Cardiovascular Cardiovascular: Denies chest pain Respiratory/Chest Respiratory/Chest: Denies cough or dyspnea Gastrointestinal Gastrointestinal: Reports abdominal pain, nausea and vomiting; Denies diarrhea Genitourinary Genitourinary ED: Denies dysuria Musculoskeletal Musculoskeletal: Reports myalgias Integumentary Denies rash Neurologic Neurologic: Denies headache(s) Hematologic/Lymphatic Hematologic/Lymphatic: Denies easy bleeding or easy bruising EXAM Physical Exam Const Vital Signs: 03/11/22 00:12 03/11/22 00:45 Temperature 98.7 F Temperature Source Oral Pulse Rate 103 H Respiratory Rate 17 Respiratory Effort Normal Respiratory Pattern Normal Blood Pressure 137/91 H Blood Pressure Mean 106 Pulse Ox 98 Oxygen Delivery Method Room Air Positive well nourished and well developed General Appearance ED: well developed HEENT Reports dry mucous membranes HEENT Narrative: Mucous membranes are dry and tacky without secondary changes to suggest infection Mouth ED: Yes dry mucous membranes Mouth: dry mucous membranes Eyes PERRL and EOMs intact bilaterally Neck supple Resp normal respiratory effort and clear to auscultation bilaterally Cardio regular rhythm Rate: tachycardic and other Other Details: Slightly tachycardic rate with regular rhythm GI non-tender and non-distended GI Narrative: Abdomen is soft nontender nondistended with hyperactive bowel sounds no voluntary guarding or rigidity no pulsatile mass. Auscultation: hyperactive bowel sounds Palpation: soft Extremity normal to inspection Neuro oriented x3 and CN's II-XII intact bilaterally Sensorium / Orientation: alert Psych mental status grossly normal Skin no rashes or lesions noted Skin Narrative: Skin turgor is increased MDM MDM MDM Narrative Medical decision making narrative: Patient presented to the ER with a soft nonsurgical abdomen so I felt no need for emergent imaging studies. His symptoms are most consistent with a viral stomach infection and secondary to his basic blood work was obtained and patient was treated with Toradol Zofran and IV fluids as well as Bentyl. Labs revealed no signs of septicemia or acute kidney injury or severe electrolyte derangement. After he was medicated he had no further bouts of vomiting and reported improvement of symptoms. . On reevaluation his abdomen remains soft and nonsurgical. Therefore at this time as patient does not have acute kidney injury severe electrolyte derangement or signs of septicemia and his symptoms have improved he is otherwise safe for discharge with symptomatic care Lab Data Attestation: I reviewed the patient's lab results. Labs: Laboratory Results - last 24 hr 03/11/22 03/11/22 00:45 00:45 WBC 8.0 RBC 5.06 Hgb 14.5 Hct 45.2 MCV 89.3 MCH 28.7 MCHC 32.1 RDW Std Deviation 47.9 H RDW Coeff of Ammon 14.6 Plt Count 282 MPV 10.0 Immature Gran % (Auto) 0.200 Neut % (Auto) 65.0 Lymph % (Auto) 22.5 [place] % (Auto) 8.7 Eos % (Auto) 2.9 Baso % (Auto) 0.7 Absolute Neuts (auto) 5.2 Absolute Lymphs (auto) 1.80 Nucleated RBC % 0 Sodium 141 Potassium 3.7 Chloride 107 Carbon Dioxide 27.0 Anion Gap 7 BUN 16 Creatinine 0.94 Estim Creat Clear Calc 116.95 Est GFR (MDRD) Af Amer 116 Est GFR (MDRD) Non-Af 96 BUN/Creatinine Ratio 17.1 Glucose 150 H Calcium 8.7 Total Bilirubin 0.50 Direct Bilirubin 0.20 AST 18 ALT 37 Alkaline Phosphatase 120 H Total Protein 7.0 Albumin 3.5 Globulin 3.5 Lipase 126 Discharge Plan Triage Chief Complaint: General Illness ED Provider: Constantin Ledesma Dx/Rx/DC Orders Clinical Impression: Nausea & vomiting, Mild dehydration Instructions: ED Dehydration (Adult), ED Vomiting (Adult) Prescriptions: New ondansetron 4 mg tablet,disintegrating 4 mg PO TID PRN (Reason: nausea and vomiting) Qty: 21 0RF dicyclomine 20 mg tablet 20 mg PO 4X/DAY PRN PRN (Reason: Abdominal pain/spasm) Qty: 28 0RF No Action ibuprofen 600 MG tablet 600 mg PO Q6H PRN PRN (Reason: Pain Or Fever) Qty: 20 0RF ondansetron 4 MG tablet 4 mg PO Q8H PRN PRN (Reason: Nausea) Qty: 10 0RF doxycycline hyclate 100 mg capsule 100 mg PO BID 10 Days Qty: 20 0RF albuterol sulfate [Ventolin HFA] 90 mcg/actuation HFA aerosol inhaler 1 - 2 puff inhalation Q4H PRN PRN (Reason: Wheezing) Qty: 1 0RF prednisone 20 mg tablet 40 mg PO DAILY 7 Days Qty: 14 0RF Primary Care Provider: Care Physician,No Primary Referrals: Care Physician,No Primary [Primary Care Provider] - Agnes Callahan MD [Med Staff - Active Staff] - Activity Restrictions/Additional Instructions: Your work-up today indicates you have a viral stomach infection which will last anywhere from 24 hours to 1 week. Take the medication as directed to help control your symptoms and stay well-hydrated. Return to the ER should you have any further concerns Disposition Disposition: Home, Self Care Discharge Date/Time: 03/11/22 02:01
== END 2022-03-11 02:01 | disposition home or self-care (01) ==
PROVIDERS: Emergency Provider Emergency Medicine; Visit Provider Emergency Medicine
DX: R11.2 Nausea with vomiting, unspecified (principal); E86.0 Dehydration; F17.210 Nicotine dependence, cigarettes, uncomplicated
CPT/HCPCS: 80048; 80076; 83690; 85025; 96361; 96372; 96374; 96375; 99283; J7030; J2405

== ENCOUNTER 2022-03-15 07:46 | Emergency (ER) | payer SELFPAY ==
[2022-03-15 07:46] VITALS: BP 138/100; PULSE 109; RESP 18; TEMP 36.1; O2SAT 99; BMI 34.5
--- NOTE | 2022-03-15 07:59 | EKG12_ITS ---
Test Reason : SOB Blood Pressure : / mmHG Vent. Rate : 080 BPM Atrial Rate : 080 BPM P-R Int : 150 ms QRS Dur : 088 ms QT Int : 390 ms P-R-T Axes : 042 049 041 degrees QTc Int : 449 ms Normal sinus rhythm with sinus arrhythmia Normal ECG Confirmed by АННА BAHENA, LUCRECIA ([id number]), video news editor JAQUELIN BEATTY ([id number]) on 03/17/2022 8:08:46 AM Referred By: WILLIS Confirmed By:LUCRECIA JJ MD
--- NOTE | 2022-03-15 08:01 | EDS_ITS ---
HPI History of Present Illness Chief Complaint: Cold Sx Detail of Chief Complaint: Cough, shortness of breath, chest pain Informant: patient Narrative Narrative: Patient presents the emergency department complaint not feeling well for over a month. Patient states that he was seen in the emergency department about a month ago and started on doxycycline and given a nebulizer and prednisone. Patient felt like he got a little bit better but then started feeling bad about a week and a half ago again. Patient continues to complain of cough that is productive at time of yellow-green sputum. He describes central chest discomfort that is worse with breathing. He denies recent travel or surgery. No history of PE or DVT. Patient had a COVID test about a week ago that was negative. Patient denies fevers. [facility] Medical History LLL CAP, multifoal Home Medications ibuprofen 600 mg tablet 600 mg PO Q6H PRN PRN Pain Or Fever #20 tabs 04/06/19 [Rx Last Taken Unknown] ondansetron 4 mg disintegrating tablet 4 mg PO Q8H PRN PRN Nausea #10 tabs 04/06/19 [Rx Last Taken Unknown] albuterol sulfate 90 mcg/actuation aerosol inhaler (Ventolin HFA) 1 - 2 puff inhalation Q4H PRN PRN Wheezing #1 device 02/10/22 [Rx Last Taken Unknown] doxycycline hyclate 100 mg capsule 100 mg PO BID 10 days #20 caps 02/10/22 [Rx Last Taken Unknown] prednisone 20 mg tablet 40 mg PO DAILY 7 days #14 tabs 02/27/22 [Rx Last Taken Unknown] dicyclomine 20 mg tablet 20 mg PO 4X/DAY PRN PRN Abdominal pain/spasm #28 tabs 03/11/22 [Rx Last Taken Unknown] ondansetron 4 mg disintegrating tablet 4 mg PO TID PRN nausea and vomiting #21 tabs 03/11/22 [Rx Last Taken Unknown] Allergy/AdvReac Type Severity Reaction Status Date / Time Fish Containing Products Allergy Hives Verified 03/11/22 00:18 tomato [Tomato] Allergy Hives Verified 03/11/22 00:18 naproxen AdvReac Nausea/Vom/ Verified 03/11/22 00:18 Diarrhea Social History Smoking Status: Current every day smoker tobacco type: cigarettes ROS ROS ED Review of Systems ROS Unobtainable: other Constitutional Constitutional ED: Reports lethargy; Denies chills, fever(s), sweats or weight loss Eyes Eyes: Denies blurry vision, change in vision or diplopia ENT ENT ED: Denies rhinorrhea or sore throat Cardiovascular Cardiovascular: Reports chest pain; Denies orthopnea or racing heartbeat Respiratory/Chest Respiratory/Chest: Reports cough, dyspnea and dyspnea on exertion; Denies orthopnea or sputum Gastrointestinal Gastrointestinal: Denies abdominal pain, diarrhea, nausea or vomiting Genitourinary Genitourinary ED: Denies dysuria, hematuria or urinary frequency Musculoskeletal Musculoskeletal: Denies arthralgias, back pain, myalgias or neck pain Integumentary Denies abscess, Abrasions or rash Neurologic Neurologic: Denies headache(s) or weakness Psychiatric Psychiatric: Denies anxiety, depression or suicidal thoughts Endocrine Endocrinology: Denies polydipsia, polyphagia or polyuria Hematologic/Lymphatic Hematologic/Lymphatic: Denies easy bleeding, easy bruising or lymphadenopathy Allergic/Immunologic Allergic/Immunologic ED: Denies mouth swelling, tongue swelling or urticaria EXAM Physical Exam Const Vital Signs: 03/15/22 07:46 03/15/22 08:11 03/15/22 08:17 Temperature 97.0 F L Temperature Source Temporal Pulse Rate 109 H 73 Respiratory Rate 18 21 H Respiratory Effort Short of Breath Respiratory Depth Normal Respiratory Pattern Tachypnea Normal Blood Pressure 138/100 H Blood Pressure Mean 112 Pulse Ox 99 Oxygen Delivery Method Room Air 03/15/22 07:46 Temperature 97.0 F L Temperature Source Temporal Pulse Rate 109 H Respiratory Rate 18 Respiratory Effort Respiratory Depth Respiratory Pattern Blood Pressure 138/100 H Blood Pressure Mean 112 Pulse Ox 99 Oxygen Delivery Method Room Air Positive well nourished and well developed General Appearance ED: well developed and NAD HEENT Reports TM's clear and moist mucous membranes normocephalic and atraumatic; Negative for trauma or tenderness Tympanic Membrane ED: Yes TM's clear Eyes PERRL and EOMs intact bilaterally General Eye ED: Negative for pale conjunctiva or scleral icterus Neck no lymphadenopathy, supple and no JVD General: Negative for tenderness Chest Wall inspection of chest normal and palpation of chest normal Chest: Negative for tenderness Resp normal respiratory effort and clear to auscultation bilaterally Effort and Inspection: Negative for respiratory distress or pain with movement Auscultation: Negative for rhonchi, wheezes or diminished lung sounds Cardio regular rate, regular rhythm, S1 normal heart sound, S2 normal heart sound and no murmurs Peripheral Pulses: pulses 2+ throughout GI normal to inspection, nondistended, normoactive bowel sounds, soft to palpation, non-tender, non-distended and no masses Back/Spine no CVA tenderness and no thoracic nor lumbar tenderness Extremity normal to inspection General Extremety ED: Negative for edema General Extremity: Negative for edema Neuro oriented x3, CN's II-XII intact bilaterally, no sensory deficits noted and gait normal Sensorium / Orientation: awake, alert, oriented to person, oriented to place and oriented to time Motor Exam: strength 5/5 throughout and strength abnormal Psych mental status grossly normal Skin no rashes or lesions noted and no wounds MDM MDM MDM Narrative Medical decision making narrative: IV line established on arrival. EKG obtained showed no acute abnormalities other than occasional PACs. Patient had a normal WBC count and normal D-dimer. Troponin was normal. Chest x-ray was normal. Patient did have a rapid COVID test that was positive. At this point I suspect symptoms likely related to COVID. He has had symptoms for more than a week and a half he is not a candidate for antivirals. Patient stable from a respiratory standpoint. Initially I thought he may have some faint wheezing and I did give him a breathing treatment. Patient has inhaler at home. Patient given referral to primary care physician for follow-up. Patient advised to return if increasing shortness of breath or condition should worsen anyway. Lab Data Attestation: I reviewed the patient's lab results. Labs: Laboratory Results - last 24 hr 03/15/22 03/15/22 03/15/22 08:10 08:10 08:10 WBC 5.3 RBC 5.44 Hgb 15.8 Hct 48.9 MCV 89.9 MCH 29.0 MCHC 32.3 RDW Std Deviation 48.7 H RDW Coeff of Ammon 14.7 H Plt Count 275 MPV 9.9 Immature Gran % (Auto) 0.000 Neut % (Auto) 48.8 Lymph % (Auto) 31.3 [place] % (Auto) 14.2 H Eos % (Auto) 4.9 Baso % (Auto) 0.8 Absolute Neuts (auto) 2.6 Absolute Lymphs (auto) 1.65 Nucleated RBC % 0 D-Dimer Quant (PE/DVT) 0.29 Sodium 141 Potassium 3.9 Chloride 108 H Carbon Dioxide 28.0 Anion Gap 5 BUN 14 Creatinine 0.94 Estim Creat Clear Calc 116.95 Est GFR (MDRD) Af Amer 115 Est GFR (MDRD) Non-Af 95 BUN/Creatinine Ratio 14.9 Glucose 141 H Calcium 8.9 Troponin I High Sens 43 Radiography Chest X-Ray - ED: 1 View Diagnostic Testing: Clinical Impression(s) from Imaging Studies Chest X-Ray 03/15/22 08:41 IMPRESSION: No acute cardiopulmonary process. Electronically Signed: Terese Kulkarni MD at 9:02 EST , 1 view chest x-ray obtained interpreted by myself no acute disease process. Radiology in agreement. EKG Initial EKG: Attestation: I personally reviewed and interpreted this EKG as follows: Comments: Sinus rhythm with a rate of 80 bpm with occasional PACs Discharge Plan Triage Chief Complaint: Cold Sx ED Provider: Belkys Miller Dx/Rx/DC Orders Clinical Impression: COVID-19 Instructions: Caring for Someone Who Has COVID-19 Prescriptions: No Action ibuprofen 600 MG tablet 600 mg PO Q6H PRN PRN (Reason: Pain Or Fever) Qty: 20 0RF ondansetron 4 MG tablet 4 mg PO Q8H PRN PRN (Reason: Nausea) Qty: 10 0RF doxycycline hyclate 100 mg capsule 100 mg PO BID 10 Days Qty: 20 0RF albuterol sulfate [Ventolin HFA] 90 mcg/actuation HFA aerosol inhaler 1 - 2 puff inhalation Q4H PRN PRN (Reason: Wheezing) Qty: 1 0RF prednisone 20 mg tablet 40 mg PO DAILY 7 Days Qty: 14 0RF ondansetron 4 mg tablet,disintegrating 4 mg PO TID PRN (Reason: nausea and vomiting) Qty: 21 0RF dicyclomine 20 mg tablet 20 mg PO 4X/DAY PRN PRN (Reason: Abdominal pain/spasm) Qty: 28 0RF Primary Care Provider: Care Physician,No Primary Referrals: Emigdio Grant MD [Med Staff - Active Staff] - 5-7 Days Care Physician,No Primary [Primary Care Provider] - Disposition Disposition: Home, Self Care
[2022-03-15] MEDS: Ipratropium/Albuterol Sulfate 3 ML AMPUL.NEB INHALATION (08:10)
[2022-03-15 08:11] VITALS: PULSE 73; RESP 21
[2022-03-15 08:19] LABS: Absolute Lymphocyte Count 1.65 X10^3/uL (0.83-4.51); Absolute Neutrophil Count 2.6 X10^3/uL (2.0-7.7); Basophil# 0.04 X10^3/uL; Basophil% 0.8 % (0-1); Eosinophil# 0.26 X10^3/uL; Eosinophils% 4.9 % (0-5); Hematocrit 48.9 % (40-54); Hemoglobin 15.8 g/dL (13.0-16.5); Lymphocyte # 1.65 X10^3/ul (0.83-4.51); Lymphocyte % 31.3 % (19-41); Mean Corp Hgb Conc 32.3 g/dL (32-36); Mean Corpuscular Volume 89.9 fL (80-94); Mean Platelet Vol. 9.9 fl (6.2-12.0); Monocyte# 0.75 X10^3/uL; Monocyte% 14.2 % (0-10); NRBC Flagged by Analyzer 0 % (0-5); Neutrophil # 2.57 X10^3/uL (2.7-7.7); Neutrophil % 48.8 % (47-70); Platelet Count 275 K/mm3 (150-450); RBC Distribution Width CV 14.7 % (11.6-14.6); RBC Distribution Width SD 48.7 fl (35.1-43.9); Red Blood Count 5.44 M/mm3 (4.6-6.2); White Blood Count 5.3 K/mm3 (4.4-11.0)
[2022-03-15 08:30] LABS: D-Dimer Quantitative (DVT/PE) 0.29 FEU/ug/m (0.27-0.49)
[2022-03-15 08:37] LABS: Anion Gap 5 (5-15); BUN 14 mg/dL (7-18); BUN/Creat Ratio 14.9 RATIO (10-20); Calcium,Total 8.9 mg/dL (8.5-10.1); Chloride 108 mmol/L (98-107); Creatinine, Serum 0.94 mg/dL (0.70-1.30); EST Glomerular Filtration Rate 95 mL/min (>60); Est Glom Filt Rate - Afr Amer 115 mL/min (>60); Estimated Creatinine Clearance 116.95 ml/min; Glucose 141 mg/dL (74-106); Potassium 3.9 mmol/L (3.5-5.1); Sodium Level 141 mmol/L (136-145); Troponin-I HS (w/2H Reflex) 43 pg/mL (3.0-78.0)
--- NOTE | 2022-03-15 08:41 | RAD_ITS ---
STUDY: X-RAY CHEST REASON FOR EXAM: Male, 37 years old. Dyspnea TECHNIQUE: Frontal and lateral views of the chest. COMPARISON: 02/27/2022 FINDINGS: There is no new focal consolidation. Normal size heart. Normal mediastinum and dana. Normal visualized pulmonary arteries. Normal visualized aortic arch and descending thoracic aorta. Normal visualized thoracic spine. Normal visualized ribs, clavicles, and shoulders. There is no demonstrated abnormality of the visualized soft tissue structures of the upper abdomen. RAD/Chest PA and Lateral IMPRESSION: No acute cardiopulmonary process. Electronically Signed: Terese Kulkarni MD at 9:02 EST ,
[2022-03-15 10:16] LABS: Reflex Troponin-HS? (from REC) Y
== END 2022-03-15 09:37 | disposition home or self-care (01) ==
PROVIDERS: Emergency Provider Emergency Medicine; Visit Provider Emergency Medicine
DX: U07.1 COVID-19 (principal); F17.210 Nicotine dependence, cigarettes, uncomplicated; R09.3 Abnormal sputum; R06.02 Shortness of breath; R07.9 Chest pain, unspecified; R05.9 Cough, unspecified
CPT/HCPCS: 71046; 80048; 84484; 85025; 85379; 87428; 93005; 94640; 99282

== ENCOUNTER 2022-09-14 09:22 | Emergency (ER) | payer SELFPAY ==
[2022-09-14 09:23] VITALS: BP 142/92; PULSE 111; RESP 18; TEMP 36.9; O2SAT 98; BMI 34.4
--- NOTE | 2022-09-14 10:22 | EDS_ITS ---
HPI History of Present Illness Chief Complaint: Complaint Detail of Chief Complaint: Exposure to trichomonas Informant: patient Narrative Narrative: Patient presents for STD testing. He states that he and his girlfriend recently broke up for about 2 months. They got back together and she recently told him that she tested positive for trichomonas. Patient denies any symptoms. PFSH PFSH no medical history Home Medications ibuprofen 600 mg tablet 600 mg PO Q6H PRN PRN Pain Or Fever #20 tabs 04/06/19 [Rx Last Taken Unknown] ondansetron 4 mg disintegrating tablet 4 mg PO Q8H PRN PRN Nausea #10 tabs 04/06/19 [Rx Last Taken Unknown] albuterol sulfate 90 mcg/actuation aerosol inhaler (Ventolin HFA) 1 - 2 puff inhalation Q4H PRN PRN Wheezing #1 device 02/10/22 [Rx Last Taken Unknown] doxycycline hyclate 100 mg capsule 100 mg PO BID 10 days #20 caps 02/10/22 [Rx Last Taken Unknown] prednisone 20 mg tablet 40 mg PO DAILY 7 days #14 tabs 02/27/22 [Rx Last Taken Unknown] dicyclomine 20 mg tablet 20 mg PO 4X/DAY PRN PRN Abdominal pain/spasm #28 tabs 03/11/22 [Rx Last Taken Unknown] ondansetron 4 mg disintegrating tablet 4 mg PO TID PRN nausea and vomiting #21 tabs 03/11/22 [Rx Last Taken Unknown] Allergy/AdvReac Type Severity Reaction Status Date / Time Fish Containing Products Allergy Hives Verified 03/11/22 00:18 tomato [Tomato] Allergy Hives Verified 03/11/22 00:18 naproxen AdvReac Nausea/Vom/ Verified 03/11/22 00:18 Diarrhea Social History Smoking Status: Current every day smoker tobacco type: cigarettes ROS ROS ED Constitutional Constitutional ED: Denies chills or fever(s) Eyes Eyes: Denies change in vision or discharge from eye(s) ENT ENT ED: Denies discharge from eye(s), rhinorrhea or sore throat Cardiovascular Cardiovascular: Denies chest pain or palpitations Respiratory/Chest Respiratory/Chest: Denies cough or dyspnea Gastrointestinal Gastrointestinal: Denies abdominal pain, nausea or vomiting Genitourinary Genitourinary ED: Reports other Details: Patient denies any sores or discharge. ; Denies difficulty urinating or dysuria Musculoskeletal Musculoskeletal: Denies back pain or extremity pain Integumentary Denies Abrasions or rash Neurologic Neurologic: Denies headache(s) or weakness Allergic/Immunologic Allergic/Immunologic ED: Denies lip swelling or urticaria EXAM Physical Exam Const Vital Signs: 09/14/22 09:23 Temperature 98.5 F Temperature Source Temporal Pulse Rate 111 H Respiratory Rate 18 Blood Pressure 142/92 H Blood Pressure Mean 108 Pulse Ox 98 Oxygen Delivery Method Room Air Positive well nourished and well developed General Appearance ED: well developed HEENT Reports moist mucous membranes Eyes PERRL and EOMs intact bilaterally Neck no lymphadenopathy Resp normal respiratory effort and clear to auscultation bilaterally Cardio regular rate and regular rhythm GI normal to inspection, nondistended, normoactive bowel sounds Narrative: Patient declines exam. Extremity normal to inspection Psych mental status grossly normal MDM MDM MDM Narrative Medical decision making narrative: Urine sent for gonorrhea and Chlamydia testing. Given the patient's known exposure to trichomonas he is given 2 g of p.o. Flagyl. Patient's gonorrhea and Chlamydia testing ultimately returned negative. Lab Data Labs: Laboratory Results - last 24 hr 09/14/22 10:35 Chlam trachomat DNA PCR Negative N.gonorrhoeae DNA (PCR) Negative Discharge Plan Triage Chief Complaint: Complaint ED Provider: Clarissa Morales Dx/Rx/DC Orders Clinical Impression: Exposure to STD Instructions: ED NON-GC URETHRITIS Male Prescriptions: No Action ibuprofen 600 MG tablet 600 mg PO Q6H PRN PRN (Reason: Pain Or Fever) Qty: 20 0RF ondansetron 4 MG tablet 4 mg PO Q8H PRN PRN (Reason: Nausea) Qty: 10 0RF doxycycline hyclate 100 mg capsule 100 mg PO BID 10 Days Qty: 20 0RF albuterol sulfate [Ventolin HFA] 90 mcg/actuation HFA aerosol inhaler 1 - 2 puff inhalation Q4H PRN PRN (Reason: Wheezing) Qty: 1 0RF prednisone 20 mg tablet 40 mg PO DAILY 7 Days Qty: 14 0RF ondansetron 4 mg tablet,disintegrating 4 mg PO TID PRN (Reason: nausea and vomiting) Qty: 21 0RF dicyclomine 20 mg tablet 20 mg PO 4X/DAY PRN PRN (Reason: Abdominal pain/spasm) Qty: 28 0RF Primary Care Provider: Care Physician,No Primary Referrals: Britney Sales MD [Med Staff - Community Chest Officer] - As Needed Care Physician,No Primary [Primary Care Provider] - Activity Restrictions/Additional Instructions: As discussed, you have been treated for trichomonas. Urine has also been sent for gonorrhea and Chlamydia testing. If this is positive you will receive a phone call we will make sure you are appropriately treated. Disposition Disposition: Home, Self Care Discharge Date/Time: 09/14/22 10:45
[2022-09-14] MEDS: metroNIDAZOLE 500 MG Tablet 2000 MG PO (10:36)
[2022-09-14 13:13] LABS: Chlamydia Trachomatis by PCR Negative (Negative); Neisserai gonorrhoeae by PCR Negative (Negative); Probe Check PASS; Sample Adequacy Control PASS; Specimen Processing Control PASS
== END 2022-09-14 10:45 | disposition home or self-care (01) ==
LOC: ED 10:42
PROVIDERS: Emergency Provider Emergency Medicine; Visit Provider Emergency Medicine
DX: Z20.2 Contact with and (suspected) exposure to infections with a predominantly sexual mode of transmission (principal); F17.210 Nicotine dependence, cigarettes, uncomplicated; Z11.3 Encounter for screening for infections with a predominantly sexual mode of transmission
CPT/HCPCS: 87491; 87591; 99283

== ENCOUNTER 2023-02-22 12:47 | Emergency (ER) | payer MEDICAID, SELFPAY ==
[2023-02-22 12:48] VITALS: BP 142/84; PULSE 107; RESP 16; TEMP 36.2; O2SAT 99; BMI 42.9
--- NOTE | 2023-02-22 12:50 | RAD_ITS ---
STUDY: X-RAY CHEST REASON FOR EXAM: Male, 38 years old. COUGH TECHNIQUE: Single AP portable view of the chest. COMPARISON: Comparison is made with prior study dated March 15, 2022. FINDINGS: The lungs are clear and expanded. There is no demonstrated pleural abnormality. Normal size heart. Normal mediastinum and dana. Normal visualized pulmonary arteries. Normal visualized aortic arch and descending thoracic aorta. Normal visualized thoracic spine. Normal visualized ribs, clavicles, and shoulders. There is no demonstrated abnormality of the visualized soft tissue structures of the upper abdomen. RAD/Chest 1 View (Portable) IMPRESSION: Normal x-ray examination of the chest. Electronically Signed: Avni Contreras MD at 13:22 EDT ,
[2023-02-22 13:29] LABS: Absolute Lymphocyte Count 1.72 X10^3/uL (0.83-4.51); Absolute Neutrophil Count 4.4 X10^3/uL (2.0-7.7); Basophil# 0.04 X10^3/uL; Basophil% 0.6 % (0-1); Eosinophil# 0.17 X10^3/uL; Eosinophils% 2.5 % (0-5); Hematocrit 45.8 % (40-54); Hemoglobin 14.6 g/dL (13.0-16.5); Lymphocyte # 1.72 X10^3/ul (0.83-4.51); Lymphocyte % 24.9 % (19-41); Mean Corp Hgb Conc 31.9 g/dL (32-36); Mean Corpuscular Hgb 28.2 pg (27.0-32.0); Mean Corpuscular Volume 88.4 fL (80-94); Mean Platelet Vol. 9.8 fl (6.2-12.0); Monocyte# 0.53 X10^3/uL; Monocyte% 7.7 % (0-10); NRBC Flagged by Analyzer 0 % (0-5); Neutrophil # 4.42 X10^3/uL (2.7-7.7); Platelet Count 295 K/mm3 (150-450); RBC Distribution Width CV 13.8 % (11.6-14.6); RBC Distribution Width SD 44.8 fl (35.1-43.9); Red Blood Count 5.18 M/mm3 (4.6-6.2); White Blood Count 6.9 K/mm3 (4.4-11.0)
[2023-02-22 13:43] LABS: Anion Gap 4 (5-15); BUN 11 mg/dL (7-18); BUN/Creat Ratio 10.3 RATIO (10-20); Calcium,Total 8.8 mg/dL (8.5-10.1); Chloride 105 mmol/L (98-107); Creatinine, Serum 1.07 mg/dL (0.70-1.30); EST Glomerular Filtration Rate 82 mL/min (>60); Est Glom Filt Rate - Afr Amer 99 mL/min (>60); Estimated Creatinine Clearance 98.72 ml/min; Glucose 101 mg/dL (74-106); Potassium 3.7 mmol/L (3.5-5.1); Sodium Level 138 mmol/L (136-145)
[2023-02-22 13:54] VITALS: RESP 18; O2SAT 96
--- NOTE | 2023-02-22 14:09 | ED.VIS.DYS ---
HPI History of Present Illness Chief Complaint: Shortness of Breath Informant: patient Narrative Narrative: Patient states he has had congestion and shortness of breath for 1 or 2 months. He comes to the ER because he does states he does not have a PCP. For the most part using rescue inhaler was working but he states it is not helping enough now. He denies any fevers, chills, sputum production, hemoptysis, leg swelling. No recent travel out of the area, hospitalization, surgery. States he is wheezing when he is short of breath. Now it is limiting him with relatively little activity, making his wheezing worse. PFSH PFSH Medical History no medical history no medical history Home Medications ibuprofen 600 mg tablet 600 mg PO Q6H PRN PRN Pain Or Fever #20 tabs 04/06/19 [Rx Last Taken Unknown] ondansetron 4 mg disintegrating tablet 4 mg PO Q8H PRN PRN Nausea #10 tabs 04/06/19 [Rx Last Taken Unknown] albuterol sulfate 90 mcg/actuation aerosol inhaler (Ventolin HFA) 1 - 2 puff inhalation Q4H PRN PRN Wheezing #1 device 02/10/22 [Rx Last Taken Unknown] doxycycline hyclate 100 mg capsule 100 mg PO BID 10 days #20 caps 02/10/22 [Rx Last Taken Unknown] prednisone 20 mg tablet 40 mg (2 x 20 mg) PO DAILY 7 days #14 tabs 02/27/22 [Rx Last Taken Unknown] dicyclomine 20 mg tablet 20 mg PO 4X/DAY PRN PRN Abdominal pain/spasm #28 tabs 03/11/22 [Rx Last Taken Unknown] ondansetron 4 mg disintegrating tablet 4 mg PO TID PRN nausea and vomiting #21 tabs 03/11/22 [Rx Last Taken Unknown] prednisone 10 mg tablet 10 mg PO UD #33 tabs 02/22/23 [Rx Last Taken Unknown] Allergy/AdvReac Type Severity Reaction Status Date / Time Fish Containing Products Allergy Hives Verified 03/11/22 00:18 tomato [Tomato] Allergy Hives Verified 03/11/22 00:18 naproxen AdvReac Nausea/Vom/ Verified 03/11/22 00:18 Diarrhea Social History Smoking Status: Current every day smoker tobacco type: cigarettes ROS ROS ED Constitutional Constitutional ED: Denies chills or fever(s) Eyes Eyes: Denies change in vision or diplopia ENT ENT ED: Reports nasal congestion; Denies sore throat Cardiovascular Cardiovascular: Reports other Details: Occasional sharp chest pains, rare, no radiation to arm, jaw, neck, back ; Denies leg edema, orthopnea or palpitations Respiratory/Chest Respiratory/Chest: Reports cough, dyspnea and dyspnea on exertion; Denies orthopnea or sputum Gastrointestinal Gastrointestinal: Denies abdominal pain, diarrhea, nausea or vomiting Genitourinary Genitourinary ED: Denies dysuria or hematuria Musculoskeletal Musculoskeletal: Denies back pain or neck pain Integumentary Denies abscess or rash Neurologic Neurologic: Denies headache(s), paresthesias or weakness Psychiatric Psychiatric: Denies anxiety or suicidal thoughts EXAM Physical Exam Const Vital Signs: 02/22/23 12:48 02/22/23 13:54 02/22/23 13:54 Temperature 97.2 F L Temperature Source Temporal Pulse Rate 107 H Respiratory Rate 16 18 Respiratory Effort Respiratory Pattern Blood Pressure 142/84 H Blood Pressure Mean 103 Pulse Ox 99 96 96 Oxygen Delivery Method Room Air Room Air Room Air 02/22/23 13:54 Temperature Temperature Source Pulse Rate Respiratory Rate Respiratory Effort Short of Breath Respiratory Pattern Normal Blood Pressure Blood Pressure Mean Pulse Ox Oxygen Delivery Method Room Air Positive well nourished and well developed General Appearance ED: well developed and NAD HEENT Reports moist mucous membranes normocephalic and atraumatic Eyes PERRL and EOMs intact bilaterally Neck full ROM, no lymphadenopathy, supple and no JVD Resp normal respiratory effort Resp Narrative: Inspiratory and expiratory wheezes, mild, throughout all lung weinberg. No rales rhonchi or other abnormal breath sounds. Equal breath sounds bilaterally. Trachea midline. No respiratory distress. Speaking in full sentences. Cardio regular rate, regular rhythm and no murmurs GI non-tender and non-distended Auscultation: normoactive bowel sounds Palpation: soft Back/Spine no CVA tenderness General Back: other FROM Extremity normal to inspection General Extremety ED: Negative for edema, pulses abnormal or tenderness General Extremity: Negative for edema or pulses abnormal Neuro oriented x3, CN's II-XII intact bilaterally and no sensory deficits noted Sensorium / Orientation: awake and alert Motor Exam: strength 5/5 throughout Skin no rashes or lesions noted and no wounds MDM MDM MDM Narrative Medical decision making narrative: Labs reviewed and unremarkable. Chest x-ray 1 view on my interpretation is normal, radiology is in agreement. No sign of pulmonary edema or pneumonia or pneumothorax. Patient clearly wheezing on exam. I do not think he needs to be worked up for pulmonary embolus given all of the history and exam, although was considered, but history and exam are all consistent with reactive airway disease. He has a history of heavy smoking he states he is trying to cut back and quit and has had some success in cutting back which I encouraged him to continue doing. I will put him on a taper of prednisone, he has a rescue inhaler, and referred to a PCP. Advised that he will need PFTs and put on maintenance inhalers that are appropriate for the results. Lab Data Attestation: I reviewed the patient's lab results. Labs: Laboratory Results - last 24 hr 02/22/23 13:20 WBC 6.9 RBC 5.18 Hgb 14.6 Hct 45.8 MCV 88.4 MCH 28.2 MCHC 31.9 L RDW Std Deviation 44.8 H RDW Coeff of Ammon 13.8 Plt Count 295 MPV 9.8 Immature Gran % (Auto) 0.300 Neut % (Auto) 64.0 Lymph % (Auto) 24.9 [place] % (Auto) 7.7 Eos % (Auto) 2.5 Baso % (Auto) 0.6 Absolute Neuts (auto) 4.4 Absolute Lymphs (auto) 1.72 Nucleated RBC % 0 Sodium 138 Potassium 3.7 Chloride 105 Carbon Dioxide 29.0 Anion Gap 4 L BUN 11 Creatinine 1.07 Estim Creat Clear Calc 98.72 Est GFR (MDRD) Af Amer 99 Est GFR (MDRD) Non-Af 82 BUN/Creatinine Ratio 10.3 Glucose 101 Calcium 8.8 Radiography Diagnostic Testing: Clinical Impression(s) from Imaging Studies Chest X-Ray 02/22/23 12:50 IMPRESSION: Normal x-ray examination of the chest. Electronically Signed: Avni Contreras MD at 13:22 EDT , Discharge Plan Triage Chief Complaint: Shortness of Breath ED Provider: Gael Wilson Dx/Rx/DC Orders Clinical Impression: Reactive airway disease with wheezing Instructions: ED Asthma, Acute (Adult) Prescriptions: New prednisone 10 mg tablet 10 mg PO UD Qty: 33 0RF Rx Instructions: Take 4 tablets daily for 3 days, then 3 daily for 3 days, then 2 daily for 3 days, then 1 a day for 3 days then 1 QOD for 3 doses. No Action ibuprofen 600 MG tablet 600 mg PO Q6H PRN PRN (Reason: Pain Or Fever) Qty: 20 0RF ondansetron 4 MG tablet 4 mg PO Q8H PRN PRN (Reason: Nausea) Qty: 10 0RF doxycycline hyclate 100 mg capsule 100 mg PO BID 10 Days Qty: 20 0RF albuterol sulfate [Ventolin HFA] 90 mcg/actuation HFA aerosol inhaler 1 - 2 puff inhalation Q4H PRN PRN (Reason: Wheezing) Qty: 1 0RF prednisone 20 mg tablet 40 mg PO DAILY 7 Days Qty: 14 0RF ondansetron 4 mg tablet,disintegrating 4 mg PO TID PRN (Reason: nausea and vomiting) Qty: 21 0RF dicyclomine 20 mg tablet 20 mg PO 4X/DAY PRN PRN (Reason: Abdominal pain/spasm) Qty: 28 0RF Primary Care Provider: Care Physician,No Primary Referrals: Sulma Bruce MD [Med Staff - Physical Medicine Physician] - As soon as possible Care Physician,No Primary [Primary Care Provider] - Disposition Disposition: Home, Self Care
== END 2023-02-22 14:33 | disposition home or self-care (01) ==
PROVIDERS: Emergency Provider Emergency Medicine; Visit Provider Emergency Medicine
DX: J45.909 Unspecified asthma, uncomplicated (principal); F17.210 Nicotine dependence, cigarettes, uncomplicated; Z79.52 Long term (current) use of systemic steroids
CPT/HCPCS: 71045; 80048; 85025; 87426; 94760; 99283; A4216

== ENCOUNTER 2023-04-13 08:14 | Emergency (ER) | payer MEDICAID, SELFPAY ==
[2023-04-13 08:15] VITALS: BP 139/95; PULSE 90; RESP 16; TEMP 36.2; O2SAT 97; BMI 43.8
--- NOTE | 2023-04-13 08:38 | EDS_ITS ---
HPI History of Present Illness Chief Complaint: Fever Informant: patient Onset/Context/Timing Onset: Yesterday Context: Gradual Onset Timing: Continuous Quality: Aching Location: Generalized Worsened by: Nothing Relieved by: Ibuprofen Narrative Narrative: Patient presents with a fever that began yesterday. Patient states he checked his temperature today and it was up to 100.1. Patient admits to some generalized aches. Patient presents with sore throat, cough, and shortness of breath. Patient admits to some nausea but denies any vomiting. Patient states he took some ibuprofen which did help with some of the aching and fever. Patient admits to some urinary frequency but denies any dysuria or hematuria. PFSH PFSH Medical History no medical history no medical history Home Medications ibuprofen 600 mg tablet 600 mg PO Q6H PRN PRN Pain Or Fever #20 tabs 04/06/19 [Rx Last Taken Unknown] ondansetron 4 mg disintegrating tablet 4 mg PO Q8H PRN PRN Nausea #10 tabs 04/06/19 [Rx Last Taken Unknown] albuterol sulfate 90 mcg/actuation aerosol inhaler (Ventolin HFA) 1 - 2 puff inhalation Q4H PRN PRN Wheezing #1 device 02/10/22 [Rx Last Taken Unknown] doxycycline hyclate 100 mg capsule 100 mg PO BID 10 days #20 caps 02/10/22 [Rx Last Taken Unknown] prednisone 20 mg tablet 40 mg (2 x 20 mg) PO DAILY 7 days #14 tabs 02/27/22 [Rx Last Taken Unknown] dicyclomine 20 mg tablet 20 mg PO 4X/DAY PRN PRN Abdominal pain/spasm #28 tabs 03/11/22 [Rx Last Taken Unknown] ondansetron 4 mg disintegrating tablet 4 mg PO TID PRN nausea and vomiting #21 tabs 03/11/22 [Rx Last Taken Unknown] prednisone 10 mg tablet 10 mg PO UD #33 tabs 02/22/23 [Rx Last Taken Unknown] azithromycin 250 mg tablet 250 mg PO DAILY #4 TABLETS 04/13/23 [Rx Last Taken Unknown] Allergy/AdvReac Type Severity Reaction Status Date / Time Fish Containing Products Allergy Hives Verified 03/11/22 00:18 tomato [Tomato] Allergy Hives Verified 03/11/22 00:18 naproxen AdvReac Nausea/Vom/ Verified 03/11/22 00:18 Diarrhea Surgical History no surgical history no surgical history Social History Smoking Status: Current every day smoker tobacco type: cigarettes ROS ROS ED Constitutional Constitutional ED: Reports fever(s); Denies chills Eyes Eyes: Denies blurry vision or change in vision ENT ENT ED: Reports sore throat; Denies rhinorrhea Cardiovascular Cardiovascular: Reports chest pain; Denies palpitations Respiratory/Chest Respiratory/Chest: Reports cough and dyspnea Gastrointestinal Gastrointestinal: Reports nausea; Denies vomiting Genitourinary Genitourinary ED: Reports urinary frequency; Denies dysuria or hematuria Musculoskeletal Musculoskeletal: Reports back pain and myalgias; Denies neck pain Integumentary Denies abscess or rash Neurologic Neurologic: Denies headache(s) or weakness Allergic/Immunologic Allergic/Immunologic ED: Denies mouth swelling or urticaria EXAM Physical Exam Const Vital Signs: 04/13/23 08:15 04/13/23 09:08 Temperature 97.2 F L Temperature Source Temporal Pulse Rate 90 Respiratory Rate 16 Respiratory Effort Normal Non-Labored Respiratory Pattern Normal Blood Pressure 139/95 H Blood Pressure Mean 109 Pulse Ox 97 Oxygen Delivery Method Room Air Positive well nourished, well developed and obese General Appearance ED: well developed and NAD Nutritional Appearance: obese HEENT Reports moist mucous membranes HEENT Narrative: Oropharynx is mildly erythematous. There are no exudates noted. Neck is supple. Trachea is midline. There is no JVD or lymphadenopathy noted. Neck no lymphadenopathy, supple and no JVD Resp normal respiratory effort and clear to auscultation bilaterally Cardio regular rate and regular rhythm GI non-tender and non-distended Palpation: soft Neuro oriented x3, CN's II-XII intact bilaterally and no sensory deficits noted Sensorium / Orientation: alert Motor Exam: strength 5/5 throughout Psych mental status grossly normal MDM MDM MDM Narrative Medical decision making narrative: Differential diagnosis includes viral illness, COVID-19 infection, influenza infection, strep pharyngitis, urinary tract infection, and pneumonia. Chest x- ray will be obtained to assess for pneumonia. Urinalysis will be obtained to assess for urinary tract infection. COVID-19 rapid antigen will be obtained to assess for COVID-19 infection. Influenza A and influenza B antigens will be obtained to assess for influenza infection. Rapid strep will be obtained to assess for strep pharyngitis. Radiography Chest X-Ray - ED: 2 View, Read by ED Physician, Read by Radiologist and Left Infiltrate Diagnostic Testing: Clinical Impression(s) from Imaging Studies Chest X-Ray 04/13/23 09:00 IMPRESSION: I suspect a focal lingular infiltrate. Electronically Signed: Avni Contreras MD at 9:36 EST , PA and lateral chest x-rays obtained. There are 2 views. On my independent interpretation, there is a questionable lingular infiltrate. Bony thorax is normal. There is no pneumothorax noted. There is no cardiomegaly noted. Ra diologist also interpreted the x-ray and agrees. Treatment and Re-Evaluation :: Smoking cessation was discussed. Patient was advised of his findings. Patient was given a dose of Zithromax here. Patient was given a prescription for Zithromax. Patient was instructed to follow-up with his primary care physician in 5 to 7 days. Patient was instructed return if worse in any way. Patient understood and was agreeable with the plan. All questions were answered. Discharge Plan Triage Chief Complaint: Fever Other Complaint: Cold Sx ED Provider: Francisco Horta Dx/Rx/DC Orders Clinical Impression: Pneumonia Instructions: ED Pneumonia (Adult) Prescriptions: New azithromycin [azithromycin] 250 mg tablet 250 mg PO DAILY Qty: 4 0RF No Action ibuprofen 600 MG tablet 600 mg PO Q6H PRN PRN (Reason: Pain Or Fever) Qty: 20 0RF ondansetron 4 MG tablet 4 mg PO Q8H PRN PRN (Reason: Nausea) Qty: 10 0RF doxycycline hyclate 100 mg capsule 100 mg PO BID 10 Days Qty: 20 0RF albuterol sulfate [Ventolin HFA] 90 mcg/actuation HFA aerosol inhaler 1 - 2 puff inhalation Q4H PRN PRN (Reason: Wheezing) Qty: 1 0RF prednisone 20 mg tablet 40 mg PO DAILY 7 Days Qty: 14 0RF ondansetron 4 mg tablet,disintegrating 4 mg PO TID PRN (Reason: nausea and vomiting) Qty: 21 0RF dicyclomine 20 mg tablet 20 mg PO 4X/DAY PRN PRN (Reason: Abdominal pain/spasm) Qty: 28 0RF prednisone 10 mg tablet 10 mg PO UD Qty: 33 0RF Rx Instructions: Take 4 tablets daily for 3 days, then 3 daily for 3 days, then 2 daily for 3 days, then 1 a day for 3 days then 1 QOD for 3 doses. Stand Alone Forms: ED Work / School Excuse Primary Care Provider: Care Physician,No Primary Referrals: Sulma Bruce MD [Med Staff - [employer] Consult[facility]] - 5-7 Days Care Physician,No Primary [Primary Care Provider] - Disposition Disposition: Home, Self Care
--- NOTE | 2023-04-13 09:00 | RAD_ITS ---
STUDY: X-RAY CHEST REASON FOR EXAM: Male, 38 years old. Cough and fever. TECHNIQUE: PA and lateral views of the chest. COMPARISON: Comparison is made with prior study dated February 22, 2023. FINDINGS: I suspect a focal lingular infiltrate. There is no demonstrated pleural abnormality. Normal size heart. Normal mediastinum and dana. Normal visualized pulmonary arteries. Normal visualized aortic arch and descending thoracic aorta. Normal visualized thoracic spine. Normal visualized ribs, clavicles, and shoulders. There is no demonstrated abnormality of the visualized soft tissue structures of the upper abdomen. RAD/Chest PA and Lateral IMPRESSION: I suspect a focal lingular infiltrate. Electronically Signed: Avni Contreras MD at 9:36 EST ,
[2023-04-13] MEDS: Azithromycin 250 MG Tablet 500 MG PO (10:16)
== END 2023-04-13 10:18 | disposition home or self-care (01) ==
PROVIDERS: Emergency Provider Emergency Medicine; Visit Provider Emergency Medicine
DX: J18.9 Pneumonia, unspecified organism (principal); F17.210 Nicotine dependence, cigarettes, uncomplicated; R11.0 Nausea; R35.0 Frequency of micturition; E66.9 Obesity, unspecified; M54.9 Dorsalgia, unspecified
CPT/HCPCS: 71046; 87428; 87880; 99282

== ENCOUNTER 2023-05-28 14:44 | Emergency (ER) | payer MEDICAID, SELFPAY ==
[2023-05-28 14:45] VITALS: BP 159/89; PULSE 96; RESP 18; TEMP 36.6; O2SAT 99; BMI 43.4
--- NOTE | 2023-05-28 15:06 | EDS_ITS ---
HPI History of Present Illness Chief Complaint: Dental Narrative Narrative: Patient complains of 1 to 2 days of left upper dental pain and now has a little swelling. No trauma. He would prefer no narcotics as he has had problems with them in the past. [facility] Medical History no medical history Home Medications ibuprofen 600 mg tablet 600 mg PO Q6H PRN PRN Pain Or Fever #20 tabs 04/06/19 [Rx Last Taken Unknown] ondansetron 4 mg disintegrating tablet 4 mg PO Q8H PRN PRN Nausea #10 tabs 04/06/19 [Rx Last Taken Unknown] albuterol sulfate 90 mcg/actuation aerosol inhaler (Ventolin HFA) 1 - 2 puff inhalation Q4H PRN PRN Wheezing #1 device 02/10/22 [Rx Last Taken Unknown] doxycycline hyclate 100 mg capsule 100 mg PO BID 10 days #20 caps 02/10/22 [Rx Last Taken Unknown] prednisone 20 mg tablet 40 mg (2 x 20 mg) PO DAILY 7 days #14 tabs 02/27/22 [Rx Last Taken Unknown] dicyclomine 20 mg tablet 20 mg PO 4X/DAY PRN PRN Abdominal pain/spasm #28 tabs 03/11/22 [Rx Last Taken Unknown] ondansetron 4 mg disintegrating tablet 4 mg PO TID PRN nausea and vomiting #21 tabs 03/11/22 [Rx Last Taken Unknown] prednisone 10 mg tablet 10 mg PO UD #33 tabs 02/22/23 [Rx Last Taken Unknown] azithromycin 250 mg tablet 250 mg PO DAILY #4 TABLETS 04/13/23 [Rx Last Taken Unknown] ibuprofen 600 mg tablet 600 mg PO Q6H PRN PRN pain #20 TABLETS 05/28/23 [Rx Last Taken Unknown] penicillin V potassium 500 mg tablet 500 mg PO 4X/DAY #40 tabs 05/28/23 [Rx Last Taken Unknown] Allergy/AdvReac Type Severity Reaction Status Date / Time Fish Containing Products Allergy Hives Verified 05/28/23 14:47 tomato [Tomato] Allergy Hives Verified 05/28/23 14:47 naproxen AdvReac Nausea/Vom/ Verified 05/28/23 14:47 Diarrhea Social History Smoking Status: Current every day smoker tobacco type: cigarettes ROS ROS ED Constitutional Constitutional ED: Denies chills or fever(s) Eyes Eyes: Denies change in vision ENT ENT ED: Reports other Details: See history of present illness ; Denies rhinorrhea Cardiovascular Cardiovascular: Denies chest pain Respiratory/Chest Respiratory/Chest: Denies cough or dyspnea Gastrointestinal Gastrointestinal: Denies nausea or vomiting Neurologic Neurologic: Denies headache(s) Hematologic/Lymphatic Hematologic/Lymphatic: Denies easy bleeding, easy bruising or lymphadenopathy EXAM Physical Exam Narrative Exam Narrative: General: Patient awake alert sitting in bed. No acute distress. HEENT: There is a little bit of fullness in the left upper facial area. Really just below the zygoma. But it is very subtle. No rashes. He has multiple teeth that have erosions and dental caries. There is some erythema of the gums on the upper left consistent with infection on one of the remaining molars. No drainable abscess. No sign of Josue's angina. Tongue is normal. Voice is normal. Handling secretions normally. Neck is supple without swelling or lymphadenopathy Lungs are clear. Heart is regular. Abdomen is obese but benign. Const Vital Signs: 05/28/23 14:45 Temperature 97.9 F Temperature Source Temporal Pulse Rate 96 Respiratory Rate 18 Blood Pressure 159/89 H Blood Pressure Mean 112 Pulse Ox 99 Oxygen Delivery Method Room Air MDM MDM MDM Narrative Medical decision making narrative: Patient will be treated with penicillin. I will write for ibuprofen. He states Naprosyn causes nausea and upset stomach but ibuprofen is fine for him. We discussed reasons to return. I will give him a dental resource sheet. Discharge Plan Triage Chief Complaint: Dental ED Provider: Chuck Martinez Dx/Rx/DC Orders Clinical Impression: Dental abscess Instructions: ED Dental Abscess Prescriptions: New ibuprofen 600 mg tablet 600 mg PO Q6H PRN PRN (Reason: pain) Qty: 20 0RF penicillin V potassium 500 mg tablet 500 mg PO 4X/DAY Qty: 40 0RF No Action ibuprofen 600 MG tablet 600 mg PO Q6H PRN PRN (Reason: Pain Or Fever) Qty: 20 0RF ondansetron 4 MG tablet 4 mg PO Q8H PRN PRN (Reason: Nausea) Qty: 10 0RF doxycycline hyclate 100 mg capsule 100 mg PO BID 10 Days Qty: 20 0RF albuterol sulfate [Ventolin HFA] 90 mcg/actuation HFA aerosol inhaler 1 - 2 puff inhalation Q4H PRN PRN (Reason: Wheezing) Qty: 1 0RF prednisone 20 mg tablet 40 mg PO DAILY 7 Days Qty: 14 0RF ondansetron 4 mg tablet,disintegrating 4 mg PO TID PRN (Reason: nausea and vomiting) Qty: 21 0RF dicyclomine 20 mg tablet 20 mg PO 4X/DAY PRN PRN (Reason: Abdominal pain/spasm) Qty: 28 0RF azithromycin [azithromycin] 250 mg tablet 250 mg PO DAILY Qty: 4 0RF prednisone 10 mg tablet 10 mg PO UD Qty: 33 0RF Rx Instructions: Take 4 tablets daily for 3 days, then 3 daily for 3 days, then 2 daily for 3 days, then 1 a day for 3 days then 1 QOD for 3 doses. Stand Alone Forms: ED Work / School Excuse Primary Care Provider: Care Physician,No Primary Referrals: Care Physician,No Primary [Primary Care Provider] - Activity Restrictions/Additional Instructions: See a dentist as soon as possible. Please see resource sheet with your discharge instructions. Disposition Disposition: Home, Self Care Discharge Date/Time: 05/28/23 15:16
--- OUTSIDE RECORDS SUMMARY | 2023-05-28 17:45 | XMS RPT_ITS | CCD ---
Author Name Unknown Address [address] [place] [id number] Organization [facility] Care Team Providers Care Supervisor Engraving Name Role Phone MARCO TILLMAN Admitting Unavailable MARCO TILLMAN Attending Unavailable MARCO TILLMAN Primary Care Unavailable DO UYEN BOBBY Primary Care Provider DO CECILE GRANADOS Emergency Provider Problems Problem Classification Problem Date Documented Da te Episodic/Chronic Residual codes; unclassified (1 source) Left without being seen; Translations: [Procedure and treatment not carried out due to patient leaving prior to being seen by health care provider] 11-05-2021 Episodic Results Test Name Value Interpretation Reference Range Facil ity Encounters Encounter Date Encounter Type Care Provider Facility Start: 11-05-2021 End: 11-05-2021 Emergency department patient visit UYEN BOBBY Work Phone: [facility] Start: 03-04-2020 End: 03-04-2020 Emergency department patient visit MARCO TILLMAN [facility] Plan of Treatment Date Care Activity Detail Author Patient referral [facility] Work Phone: Payers Date Payer Category Payer Policy ID Self-pay SELF PAY [id number] Social History Date Type Detail Facility [facility] Work Phone: Start: 1985 Sex Assigned At Male C [facility] Mental Status Date Assessment Result Facility 11-05-2021 Cognitive function Level Of Cons ciousness Awake;Alert;Appropriate;Follow s Commands [facility] Work Phone: Evaluation note Note Date & Type Note Facility Evaluation note No assessment information availa ble [facility] Work Phone: Summary Purpose Family History No Family History Records Found Advance Directives No Advanced Directives Records Found Chief Complaint and Reason for Visit Chief Complaint INTENSE PAIN IN LT F OOT HARD TO WALK Additional Source Comments (unrecognized sect ion and content) No Status Records Found INFORMATION SOURCE (unrecogn ized section and content) Care Teams (unrecognized sec tion and content) Goals (unrecognized section and content) Goals may be documented in a n alternate section FOR RECORDS PERTAINING TO PATIENTS WHO ARE OR HAVE BEEN ENROLLED IN A CHEMICAL DEPENDENCY/SUBSTANCEABUSE PROGRAM, SOME INFORMATION MAY BE OMITTED. This clinical summary was aggregated from multiple sources. Caution should be exercised in using it in the provision of clinical care. This summary normalizes information from multiple sources, and as a consequence, information in this document may materially change the coding, format and clinical context of patient data. In addition, data may be omitted in some cases. CLINICAL DECISIONS SHOULD BE BASED ON THE PRIMARY CLINICAL RECORDS. [facility] [employer] [facility]. provides no warranty or guarantee of the accuracy or completeness of information in this document.
== END 2023-05-28 15:16 | disposition home or self-care (01) ==
PROVIDERS: Emergency Provider Emergency Medicine; Visit Provider Emergency Medicine
DX: K04.7 Periapical abscess without sinus (principal); F17.210 Nicotine dependence, cigarettes, uncomplicated
CPT/HCPCS: 99282

== ENCOUNTER 2023-05-29 23:05 | Emergency (ER) | payer MEDICAID, SELFPAY ==
[2023-05-29 23:06] VITALS: BP 149/89; PULSE 104; RESP 16; TEMP 36.4; O2SAT 96; BMI 43.4
--- OUTSIDE RECORDS SUMMARY | 2023-05-29 23:21 | XMS RPT_ITS | CCD ---
Author Name Unknown Address [address] [place] [id number] Organization [facility] Care Team Providers Care Sheet Rock Applicator Name Role Phone MARCO TILLMAN Admitting Unavailable [...] department patient visit UYEN BOBBY Work Phone: [facility] Start: 03-04-2020 End: 03-04-2020 Emergency department patient visit MARCO TILLMAN [facility] Plan of Treatment Date Care Activity Detail Author Patient referral [facility] Work Phone: Payers Date Payer Category Payer Policy ID Self-pay SELF PAY [id number] Social History Date Type Detail Facility [facility] Work Phone: Start: 1985 Sex Assigned At Male C [facility] Mental Status Date Assessment Result Facility 11-05-2021 Cognitive function Level Of Cons ciousness Awake;Alert;Appropriate;Follow s Commands [facility] Work Phone: Evaluation note Note Date & Type Note Facility Evaluation note No assessment information availa ble [facility] Work Phone: Summary Purpose Family History No [...] BE BASED ON THE PRIMARY CLINICAL RECORDS. [facility] [employer] [facility]. provides no warranty or guarantee of the accuracy or completeness of information in this document.
--- NOTE | 2023-05-29 23:48 | ED.VIS.DENTA ---
HPI History of Present Illness Chief Complaint: Dental Informant: patient Onset/Context/Timing Onset: Days (3) Context: Gradual Onset Timing: Continuous Quality: Sharp Location: Left upper premolars and molars Worsened by: Nothing Relieved by: - (Nothing) Associated Symptoms Assocated Symptom - Dental: jaw swelling, face swelling, cold sensitivity and hot sensitivity; Negative for fever Narrative Narrative: Patient presents with dental pain that has been getting progressively worse over the past 3 days. Patient states he was seen here yesterday and was started on penicillin. Patient states that he has been taking the penicillin as prescribed without any improvement of his swelling. Patient states he has been taking Tylenol and ibuprofen as needed for pain. Patient states that this has not really been helping. Patient admits to some increased swelling of his face tonight. Patient admits to some hot and cold sensitivity. Patient denies any fevers or chills. PFSH PFSH no medical history Home Medications ibuprofen 600 mg tablet 600 mg PO Q6H PRN PRN Pain Or Fever #20 tabs 04/06/19 [Rx Last Taken Unknown] ondansetron 4 mg disintegrating tablet 4 mg PO Q8H PRN PRN Nausea #10 tabs 04/06/19 [Rx Last Taken Unknown] albuterol sulfate 90 mcg/actuation aerosol inhaler (Ventolin HFA) 1 - 2 puff inhalation Q4H PRN PRN Wheezing #1 device 02/10/22 [Rx Last Taken Unknown] doxycycline hyclate 100 mg capsule 100 mg PO BID 10 days #20 caps 02/10/22 [Rx Last Taken Unknown] prednisone 20 mg tablet 40 mg (2 x 20 mg) PO DAILY 7 days #14 tabs 02/27/22 [Rx Last Taken Unknown] dicyclomine 20 mg tablet 20 mg PO 4X/DAY PRN PRN Abdominal pain/spasm #28 tabs 03/11/22 [Rx Last Taken Unknown] ondansetron 4 mg disintegrating tablet 4 mg PO TID PRN nausea and vomiting #21 tabs 03/11/22 [Rx Last Taken Unknown] prednisone 10 mg tablet 10 mg PO UD #33 tabs 02/22/23 [Rx Last Taken Unknown] azithromycin 250 mg tablet 250 mg PO DAILY #4 TABLETS 04/13/23 [Rx Last Taken Unknown] ibuprofen 600 mg tablet 600 mg PO Q6H PRN PRN pain #20 TABLETS 05/28/23 [Rx Last Taken Unknown] penicillin V potassium 500 mg tablet 500 mg PO 4X/DAY #40 tabs 05/28/23 [Rx Last Taken Unknown] Allergy/AdvReac Type Severity Reaction Status Date / Time Fish Containing Products Allergy Hives Verified 05/29/23 23:07 tomato [Tomato] Allergy Hives Verified 05/29/23 23:07 naproxen AdvReac Nausea/Vom/ Verified 05/29/23 23:07 Diarrhea no surgical history Social History Smoking Status: Current every day smoker tobacco type: cigarettes ROS ROS ED Constitutional Constitutional ED: Denies chills or fever(s) Eyes Eyes: Denies blurry vision or change in vision ENT ENT ED: Reports rhinorrhea; Denies sore throat Cardiovascular Cardiovascular: Denies chest pain or palpitations Respiratory/Chest Respiratory/Chest: Reports cough; Denies dyspnea Gastrointestinal Gastrointestinal: Denies nausea or vomiting Genitourinary Genitourinary ED: Denies dysuria or hematuria Musculoskeletal Musculoskeletal: Reports neck pain; Denies back pain Integumentary Denies abscess or rash Neurologic Neurologic: Reports headache(s); Denies weakness Allergic/Immunologic Allergic/Immunologic ED: Denies mouth swelling or urticaria EXAM Physical Exam Const Vital Signs: 05/29/23 23:06 Temperature 97.5 F L Temperature Source Temporal Pulse Rate 104 H Respiratory Rate 16 Blood Pressure 149/89 H Blood Pressure Mean 109 Pulse Ox 96 Oxygen Delivery Method Room Air Positive well nourished and well developed General Appearance ED: well developed and NAD HEENT HEENT Narrative: Oropharynx is clear. Airway is patent. There are multiple dental caries over the left upper premolars and molars. There is some gingival edema around this tooth. There is no fluctuance. There is no discharge or drainage noted. There is some mild edema over the left maxillary area and infraorbital area. There is no fluctuance. There is no evidence of any abscess. There is no sublingual edema or erythema. There is no evidence of Josue's angina. Mouth ED: Yes lips normal and Yes tongue normal Mouth: lips normal and tongue normal Teeth and Gingiva: caries and gingiva abnormal Positive for gingival edema Throat: posterior oropharynx normal Neck supple and no JVD General: Negative for anterior neck swelling, tenderness or submandibular swelling Lymph Lymphatic: no lymphadenopathy noted Neuro oriented x3, CN's II-XII intact bilaterally, moves all extremities, no focal motor deficits and no sensory deficits noted Sensorium / Orientation: alert Motor Exam: strength 5/5 throughout Psych mental status grossly normal MDM MDM MDM Narrative Medical decision making narrative: Patient was advised that these are infected dental caries. Patient was advised that when day of Pen-Vee K will not significantly improve his symptoms. Patient was advised that this could take a few days for this to improve. Patient was given a dose of Unasyn here. Patient was instructed to continue the Pen-Vee K as previously prescribed. Patient was instructed to continue ibuprofen and Tylenol as needed for pain. Patient was instructed to follow-up with his dentist in 5 to 7 days. Patient understood and was agreeable with the plan. All questions were answered. Discharge Plan Triage Chief Complaint: Dental ED Provider: Francisco Horta Dx/Rx/DC Orders Clinical Impression: Nicotine dependence, Dental abscess Instructions: ED Dental Abscess Prescriptions: No Action ibuprofen 600 MG tablet 600 mg PO Q6H PRN PRN (Reason: Pain Or Fever) Qty: 20 0RF ondansetron 4 MG tablet 4 mg PO Q8H PRN PRN (Reason: Nausea) Qty: 10 0RF doxycycline hyclate 100 mg capsule 100 mg PO BID 10 Days Qty: 20 0RF albuterol sulfate [Ventolin HFA] 90 mcg/actuation HFA aerosol inhaler 1 - 2 puff inhalation Q4H PRN PRN (Reason: Wheezing) Qty: 1 0RF prednisone 20 mg tablet 40 mg PO DAILY 7 Days Qty: 14 0RF ondansetron 4 mg tablet,disintegrating 4 mg PO TID PRN (Reason: nausea and vomiting) Qty: 21 0RF dicyclomine 20 mg tablet 20 mg PO 4X/DAY PRN PRN (Reason: Abdominal pain/spasm) Qty: 28 0RF azithromycin [azithromycin] 250 mg tablet 250 mg PO DAILY Qty: 4 0RF prednisone 10 mg tablet 10 mg PO UD Qty: 33 0RF Rx Instructions: Take 4 tablets daily for 3 days, then 3 daily for 3 days, then 2 daily for 3 days, then 1 a day for 3 days then 1 QOD for 3 doses. ibuprofen 600 mg tablet 600 mg PO Q6H PRN PRN (Reason: pain) Qty: 20 0RF penicillin V potassium 500 mg tablet 500 mg PO 4X/DAY Qty: 40 0RF Primary Care Provider: Care Physician,No Primary Referrals: Care Physician,No Primary [Primary Care Provider] - Dentist,Your [STAFF PHYSICIAN] - 5-7 Days Activity Restrictions/Additional Instructions: Continue your penicillin as prescribed until gone. Continue taking Tylenol and ibuprofen as needed for pain. Follow-up with a dentist in 5 to 7 days. Disposition Disposition: Home, Self Care
[2023-05-30] MEDS: Ampicillin/Sulbactam 3 GM in 0.9% Normal Saline (100mL MB+) 100 ML IV (00:12)
== END 2023-05-30 01:29 | disposition home or self-care (01) ==
PROVIDERS: Emergency Provider Emergency Medicine; Visit Provider Emergency Medicine
DX: K04.7 Periapical abscess without sinus (principal); F17.210 Nicotine dependence, cigarettes, uncomplicated; R51.9 Headache, unspecified; K02.9 Dental caries, unspecified
CPT/HCPCS: 96365; 96366; 99283; J7050; A4216; J0295

== ENCOUNTER 2023-06-26 15:24 | Emergency (ER) | payer MEDICAID, SELFPAY ==
[2023-06-26 15:25] VITALS: BP 143/100; PULSE 113; RESP 18; TEMP 37.2; O2SAT 96; BMI 43.2
--- OUTSIDE RECORDS SUMMARY | 2023-06-26 15:40 | XMS RPT_ITS | CCD ---
Author Name Unknown Address [address] [place] [id number] Organization [facility] Care Team Providers Care Manager Recovery Name Role Phone MARCO TILLMAN Admitting Unavailable MARCO TILLMAN Attending Unavailable MARCO TILLMAN Primary Care Unavailable DO UYEN BOBBY Primary Care Provider DO CECILE GRANADOS Emergency Provider [phone] Problems Problem Classification Problem Date Documented Da [...] department patient visit UYEN BOBBY Work Phone: [facility] Start: 03-04-2020 End: 03-04-2020 Emergency department patient visit MARCO TILLMAN [facility] Plan of Treatment Date Care Activity Detail Author Patient referral [facility] Work Phone: Payers Date Payer Category Payer Policy ID Self-pay SELF PAY [id number] Social History Date Type Detail Facility [facility] Work Phone: Start: 1985 Sex Assigned At Male [facility] Mental Status Date Assessment Result Facility 11-05-2021 Cognitive function Level Of Cons ciousness Awake;Alert;Appropriate;Follow s Commands [facility] Work Phone: Evaluation note Note Date & Type Note Facility Evaluation note No assessment information availa ble [facility] Work Phone: Summary Purpose Family History [...] BE BASED ON THE PRIMARY CLINICAL RECORDS. [facility] [employer] [facility]. provides no warranty or guarantee of the accuracy or completeness of information in this document.
--- NOTE | 2023-06-26 16:13 | ED.VIS.GI ---
HPI HPI - GI History of Present Illness Chief Complaint: Abd Pain Narrative Narrative: 38-year-old male presenting with nausea, vomiting, diarrhea. Onset was last evening. He states his is sick with something as well. He believes is something viral. Patient has been able to a little bit of fluid down this afternoon and has not vomited in a couple hours. He states that he is having a lot of diarrhea and is unable to control it. He feels generally weak. Denies cough or shortness of breath. Denies chest pain. He is not sure if he had a fever because he has not checked. PFSH PFSH Medical History no medical history Home Medications ibuprofen 600 mg tablet 600 mg PO Q6H PRN PRN Pain Or Fever #20 tabs 04/06/19 [Rx Last Taken Unknown] ondansetron 4 mg disintegrating tablet 4 mg PO Q8H PRN PRN Nausea #10 tabs 04/06/19 [Rx Last Taken Unknown] albuterol sulfate 90 mcg/actuation aerosol inhaler (Ventolin HFA) 1 - 2 puff inhalation Q4H PRN PRN Wheezing #1 device 02/10/22 [Rx Last Taken Unknown] doxycycline hyclate 100 mg capsule 100 mg PO BID 10 days #20 caps 02/10/22 [Rx Last Taken Unknown] prednisone 20 mg tablet 40 mg (2 x 20 mg) PO DAILY 7 days #14 tabs 02/27/22 [Rx Last Taken Unknown] dicyclomine 20 mg tablet 20 mg PO 4X/DAY PRN PRN Abdominal pain/spasm #28 tabs 03/11/22 [Rx Last Taken Unknown] ondansetron 4 mg disintegrating tablet 4 mg PO TID PRN nausea and vomiting #21 tabs 03/11/22 [Rx Last Taken Unknown] prednisone 10 mg tablet 10 mg PO UD #33 tabs 02/22/23 [Rx Last Taken Unknown] azithromycin 250 mg tablet 250 mg PO DAILY #4 TABLETS 04/13/23 [Rx Last Taken Unknown] ibuprofen 600 mg tablet 600 mg PO Q6H PRN PRN pain #20 TABLETS 05/28/23 [Rx Last Taken Unknown] penicillin V potassium 500 mg tablet 500 mg PO 4X/DAY #40 tabs 05/28/23 [Rx Last Taken Unknown] ondansetron 4 mg disintegrating tablet 4 mg PO Q8H PRN PRN Nausea #14 tabs 06/26/23 [Rx Last Taken Unknown] Allergy/AdvReac Type Severity Reaction Status Date / Time Fish Containing Products Allergy Hives Verified 06/26/23 15:25 tomato [Tomato] Allergy Hives Verified 06/26/23 15:25 naproxen AdvReac Nausea/Vom/ Verified 06/26/23 15:25 Diarrhea Social History Smoking Status: Current every day smoker tobacco type: cigarettes ROS ROS ED Constitutional Constitutional ED: Denies fever(s) or subjective ENT ENT ED: Denies rhinorrhea or sore throat Cardiovascular Cardiovascular: Denies chest pain or palpitations Respiratory/Chest Respiratory/Chest: Denies cough or dyspnea Gastrointestinal Gastrointestinal: Reports diarrhea, nausea and vomiting Genitourinary Genitourinary ED: Denies dysuria or hematuria Musculoskeletal Musculoskeletal: Denies arthralgias or back pain Integumentary Denies abscess Neurologic Neurologic: Reports headache(s) Psychiatric Psychiatric: Denies anxiety or depression EXAM Physical Exam Const Vital Signs: 06/26/23 15:25 Temperature 98.9 F Temperature Source Temporal Pulse Rate 113 H Respiratory Rate 18 Blood Pressure 143/100 H Blood Pressure Mean 114 Pulse Ox 96 Oxygen Delivery Method Room Air Positive well nourished General Appearance ED: NAD HEENT Reports moist mucous membranes atraumatic Eyes PERRL and EOMs intact bilaterally Resp normal respiratory effort and clear to auscultation bilaterally Auscultation: Negative for rales, rhonchi or wheezes Cardio regular rate and regular rhythm GI non-tender and non-distended Neuro CN's II-XII intact bilaterally Sensorium / Orientation: alert Psych mental status grossly normal and thought process normal Skin General Skin Exam: Negative for jaundice MDM MDM MDM Narrative Medical decision making narrative: Patient medicated with Zofran. Offered viral testing but patient declines. On reevaluation has been able to sip some water and have some crackers. He states he feels better. He is ready for discharge. I will send a prescription for Zofran for home. I recommended bland diet. Precautions discussed. Impression: #1 viral gastroenteritis Discharge Plan Triage Chief Complaint: Abd Pain ED Provider: Kota Holt Dx/Rx/DC Orders Instructions: ED Gastroenteritis, Viral (Adult) Prescriptions: New ondansetron 4 mg tablet,disintegrating 4 mg PO Q8H PRN PRN (Reason: Nausea) Qty: 14 0RF No Action ibuprofen 600 MG tablet 600 mg PO Q6H PRN PRN (Reason: Pain Or Fever) Qty: 20 0RF ondansetron 4 MG tablet 4 mg PO Q8H PRN PRN (Reason: Nausea) Qty: 10 0RF doxycycline hyclate 100 mg capsule 100 mg PO BID 10 Days Qty: 20 0RF albuterol sulfate [Ventolin HFA] 90 mcg/actuation HFA aerosol inhaler 1 - 2 puff inhalation Q4H PRN PRN (Reason: Wheezing) Qty: 1 0RF prednisone 20 mg tablet 40 mg PO DAILY 7 Days Qty: 14 0RF ondansetron 4 mg tablet,disintegrating 4 mg PO TID PRN (Reason: nausea and vomiting) Qty: 21 0RF dicyclomine 20 mg tablet 20 mg PO 4X/DAY PRN PRN (Reason: Abdominal pain/spasm) Qty: 28 0RF azithromycin [azithromycin] 250 mg tablet 250 mg PO DAILY Qty: 4 0RF prednisone 10 mg tablet 10 mg PO UD Qty: 33 0RF Rx Instructions: Take 4 tablets daily for 3 days, then 3 daily for 3 days, then 2 daily for 3 days, then 1 a day for 3 days then 1 QOD for 3 doses. ibuprofen 600 mg tablet 600 mg PO Q6H PRN PRN (Reason: pain) Qty: 20 0RF penicillin V potassium 500 mg tablet 500 mg PO 4X/DAY Qty: 40 0RF Primary Care Provider: Care Physician,No Primary Referrals: Care Physician,No Primary [Primary Care Provider] - Disposition Disposition: Home, Self Care
[2023-06-26] MEDS: Ondansetron ODT 4 MG Tablet PO (16:28)
[2023-06-26] MEDS: Acetaminophen 500 MG Tablet 1000 MG PO (16:29)
[2023-06-26 17:05] VITALS: BP 148/90; PULSE 88; RESP 18; TEMP 36.3; O2SAT 99
== END 2023-06-26 17:06 | disposition home or self-care (01) ==
PROVIDERS: Emergency Provider Student in an Organized Health Care Education/Training Program; Visit Provider Student in an Organized Health Care Education/Training Program
DX: A08.4 Viral intestinal infection, unspecified (principal); F17.210 Nicotine dependence, cigarettes, uncomplicated; R51.9 Headache, unspecified
CPT/HCPCS: 99283

== ENCOUNTER 2023-11-04 13:26 | Emergency (ER) | payer MEDICAID, SELFPAY ==
[2023-11-04 13:28] VITALS: BP 149/95; PULSE 90; RESP 16; TEMP 36.3; O2SAT 97; BMI 46.3
--- NOTE | 2023-11-04 15:39 | EDS_ITS ---
HPI History of Present Illness Chief Complaint: Dental Informant: patient Onset/Context/Timing Onset: Yesterday Context: Gradual Onset Timing: Continuous Quality: Sharp Location: Right lower molars Worsened by: Nothing Relieved by: - (Nothing) Associated Symptoms Assocated Symptom - Dental: jaw swelling and cold sensitivity; Negative for fever, face swelling or hot sensitivity Narrative Narrative: Patient presents with right lower dental pain that has gradually gotten worse since yesterday. Patient describes the pain as sharp. Patient states it has been constant since yesterday. Patient states he feels some swelling in his right lower jaw. Patient states that he has some cold sensitivity yesterday. Patient states his starting to feel better today. Patient denies any fevers or chills. Patient denies any difficulty breathing or difficulty swallowing. PFSH PFSH Medical History no medical history no medical history Home Medications ?Medication ?Instructions ?Recorded ?Last Taken ?Type ibuprofen 600 mg tablet 600 mg PO Q6H PRN PRN Pain Or 04/06/19 Unknown Rx Fever #20 tabs ondansetron 4 mg disintegrating 4 mg PO Q8H PRN PRN Nausea #10 tabs 04/06/19 Unknown Rx tablet albuterol sulfate 90 mcg/actuation 1 - 2 puff inhalation Q4H PRN PRN 02/10/22 Unknown Rx aerosol inhaler (Ventolin HFA) Wheezing #1 device doxycycline hyclate 100 mg capsule 100 mg PO BID 10 days #20 caps 02/10/22 Unknown Rx prednisone 20 mg tablet 40 mg (2 x 20 mg) PO DAILY 7 days 02/27/22 Unknown Rx #14 tabs dicyclomine 20 mg tablet 20 mg PO 4X/DAY PRN PRN Abdominal 03/11/22 Unknown Rx pain/spasm #28 tabs ondansetron 4 mg disintegrating 4 mg PO TID PRN nausea and 03/11/22 Unknown Rx tablet vomiting #21 tabs prednisone 10 mg tablet 10 mg PO UD #33 tabs 02/22/23 Unknown Rx azithromycin 250 mg tablet 250 mg PO DAILY #4 TABLETS 04/13/23 Unknown Rx ibuprofen 600 mg tablet 600 mg PO Q6H PRN PRN pain #20 05/28/23 Unknown Rx TABLETS ondansetron 4 mg disintegrating 4 mg PO Q8H PRN PRN Nausea #14 tabs 06/26/23 Unknown Rx tablet penicillin V potassium 500 mg 500 mg PO 4X/DAY #40 tabs 11/04/23 Unknown Rx tablet Allergy/AdvReac Type Severity Reaction Status Date / Time Fish Containing Products Allergy Hives Verified 11/04/23 13:28 tomato (Tomato) Allergy Hives Verified 11/04/23 13:28 naproxen AdvReac Nausea/Vom/ Verified 11/04/23 13:28 Diarrhea Surgical History no surgical history no surgical history Social History Smoking Status: Current every day smoker tobacco type: cigarettes ROS ROS ED Constitutional Constitutional ED: Denies chills or fever(s) Eyes Eyes: Denies blurry vision or change in vision ENT ENT ED: Denies rhinorrhea or sore throat Cardiovascular Cardiovascular: Denies chest pain or palpitations Respiratory/Chest Respiratory/Chest: Denies cough or dyspnea Gastrointestinal Gastrointestinal: Denies nausea or vomiting Genitourinary Genitourinary ED: Denies dysuria or hematuria Musculoskeletal Musculoskeletal: Denies back pain or neck pain Integumentary Denies abscess or rash Neurologic Neurologic: Denies headache(s) or weakness Allergic/Immunologic Allergic/Immunologic ED: Denies mouth swelling or urticaria EXAM Physical Exam Const Vital Signs: 11/04/23 13:28 Temperature 97.3 F L Temperature Source Temporal Pulse Rate 90 Respiratory Rate 16 Blood Pressure 149/95 H Blood Pressure Mean 113 Pulse Ox 97 Oxygen Delivery Method Room Air Positive well nourished and well developed General Appearance ED: well developed and NAD HEENT HEENT Narrative: There are dental caries noted over the right lower second premolar and first molar. There is gingival edema around these teeth. There is no fluctuance. There is no discharge or drainage noted. There is no sublingual edema. There is no evidence of Josue's angina. Mouth ED: Yes oral and palatal mucosa normal Mouth: oral and palatal mucosa normal Teeth and Gingiva: caries and gingiva abnormal Positive for gingival edema Throat: posterior oropharynx normal Neck supple and no JVD General: Negative for anterior neck swelling, tenderness or submandibular swelli ng Neuro oriented x3, CN's II-XII intact bilaterally, moves all extremities, no focal motor deficits and no sensory deficits noted Sensorium / Orientation: alert Motor Exam: strength 5/5 throughout Psych mental status grossly normal MDM MDM MDM Narrative Medical decision making narrative: Patient was advised this most likely from an infection. Patient was given a dose of Pen-Vee K here. Patient was also given a dose of Tylenol here. Patient was given a prescription for Pen-Vee K. Patient was instructed to continue taking Tylenol as needed for pain. Patient was instructed to follow-up with a dentist in 5 to 7 days. Patient was given a dental referral list. Patient understood and was agreeable with the plan. All questions were answered. Discharge Plan Triage Chief Complaint: Dental ED Provider: Francisco Horta Dx/Rx/DC Orders Clinical Impression: Infected dental caries, Nicotine dependence Instructions: ED Dental Pain, ED Dental Cavity Prescriptions: Continued penicillin V potassium 500 mg tablet 500 mg PO 4X/DAY Qty: 40 0RF No Action ibuprofen 600 MG tablet 600 mg PO Q6H PRN PRN (Reason: Pain Or Fever) Qty: 20 0RF ondansetron 4 MG tablet 4 mg PO Q8H PRN PRN (Reason: Nausea) Qty: 10 0RF doxycycline hyclate 100 mg capsule 100 mg PO BID 10 Days Qty: 20 0RF albuterol sulfate [Ventolin HFA] 90 mcg/actuation HFA aerosol inhaler 1 - 2 puff inhalation Q4H PRN PRN (Reason: Wheezing) Qty: 1 0RF prednisone 20 mg tablet 40 mg PO DAILY 7 Days Qty: 14 0RF ondansetron 4 mg tablet,disintegrating 4 mg PO TID PRN (Reason: nausea and vomiting) Qty: 21 0RF dicyclomine 20 mg tablet 20 mg PO 4X/DAY PRN PRN (Reason: Abdominal pain/spasm) Qty: 28 0RF azithromycin [azithromycin] 250 mg tablet 250 mg PO DAILY Qty: 4 0RF prednisone 10 mg tablet 10 mg PO UD Qty: 33 0RF Rx Instructions: Take 4 tablets daily for 3 days, then 3 daily for 3 days, then 2 daily for 3 days, then 1 a day for 3 days then 1 QOD for 3 doses. ibuprofen 600 mg tablet 600 mg PO Q6H PRN PRN (Reason: pain) Qty: 20 0RF ondansetron 4 mg tablet,disintegrating 4 mg PO Q8H PRN PRN (Reason: Nausea) Qty: 14 0RF Primary Care Provider: Care Physician,No Primary Referrals: Care Physician,No Primary [Primary Care Provider] - Dentist,Your [STAFF PHYSICIAN] - 5-7 Days Print Language: Serbian Disposition Disposition: Home, Self Care
[2023-11-04] MEDS: Acetaminophen 500 MG Tablet 1000 MG PO (15:54)
[2023-11-04] MEDS: Penicillin Vk 250 MG Tablet 500 MG PO (15:54)
[2023-11-04 15:55] VITALS: BP 137/77; PULSE 85; RESP 16; TEMP 36.6; O2SAT 98
== END 2023-11-04 15:56 | disposition home or self-care (01) ==
PROVIDERS: Emergency Provider Emergency Medicine; Visit Provider Emergency Medicine
DX: K02.9 Dental caries, unspecified (principal); F17.210 Nicotine dependence, cigarettes, uncomplicated
CPT/HCPCS: 99283

== ENCOUNTER 2024-01-03 13:32 | Emergency (ER) | payer MEDICAID, SELFPAY ==
[2024-01-03 13:33] VITALS: BP 134/91; PULSE 84; RESP 16; TEMP 36.6; O2SAT 96; BMI 44.8
== END 2024-01-03 16:10 | disposition left against medical advice (07) ==
LOC: ED 16:10
DX: Z53.21 Procedure and treatment not carried out due to patient leaving prior to being seen by health care provider (principal)

== ENCOUNTER 2024-02-29 13:56 | Emergency (ER) | payer MEDICAID, SELFPAY ==
[2024-02-29 13:57] VITALS: BP 138/88; PULSE 92; RESP 18; TEMP 36.7; O2SAT 97; BMI 44.4
--- NOTE | 2024-02-29 14:45 | RAD_ITS ---
STUDY: X-RAY - RIGHT KNEE REASON FOR EXAM: Male, 39 years old. Pain trauma TECHNIQUE: 4 view(s) of the knee. COMPARISON: None. FINDINGS: Normal visualized distal femur. Normal visualized proximal tibia and fibula. Normal proximal tibiofibular articulation. Normal medial femorotibial compartment. Normal lateral femorotibial compartment. Normal patellofemoral articulation. Pretibial soft tissue swelling. RAD/Knee 4 or More Views IMPRESSION: Pretibial soft tissue swelling Electronically Signed: Avni Contreras MD at 15:07 EST ,
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
== END 2024-02-29 16:24 | disposition home or self-care (01) ==
LOC: ED 16:21
PROVIDERS: Emergency Provider Emergency Medicine; Visit Provider Emergency Medicine
DX: S80.01XA Contusion of right knee, initial encounter (principal); S20.219A Contusion of unspecified front wall of thorax, initial encounter; F17.210 Nicotine dependence, cigarettes, uncomplicated; U07.1 COVID-19; V28.49XA Other motorcycle driver injured in noncollision transport accident in traffic accident, initial encounter
CPT/HCPCS: 73564; 99283